=== PATIENT | male | born 1955 | race Caucasian/White ===

== ENCOUNTER 2025-04-06 11:47 | Emergency (ER) | payer OTHER, SELFPAY ==
--- NOTE | ~2025-04-06 | CT_ITS ---
EXAMINATION: CT CHEST WITHOUT CONTRAST CLINICAL INFORMATION: Chest pain, injury. COMPARISON: None available. TECHNIQUE: Multidetector volumetric CT imaging of the chest was done. Axial MIP volume rendering provided. Sagittal and coronal reformatted images were obtained. This CT examination was performed using dose optimization techniques as appropriate, variously including the following: *Automated exposure control *Adjustment of mA and/or kV according to patient size (this includes techniques or standardized protocols for targeted exams where dose is matched to indication/reason for exam; i.e. extremities or head) *Use of iterative reconstruction technique FINDINGS: LUNGS: Mild paraseptal emphysema is present. Mild subpleural scarring is present in the medial and posterior right lower lobe, and anterior right middle lobe. Minimal scarring is seen medially in the left lower lobe. Appearance has a suggestion of post therapy related changes. Lungs otherwise grossly clear. No consolidations or abnormal groundglass opacities. Small airways appear normal. No interstitial disease is evident. No pleural effusion or pneumothorax. 3 mm nodule in the right middle lobe (series 15, image 75). 4 mm nodule in the left lower lobe (series 15, image 96). 3 mm nodule in the lingula (series 15, image 64). MEDIASTINUM: There appears to have been distal esophagectomy with gastric pull-through procedure. The superior esophagus is mildly patulous. Normal thyroid. There are scattered small lymph nodes in the mediastinum, presumably reactive. Largest is right paratracheal measuring 9 mm. There is no mediastinal mass. Central airways are patent. Aorta is mildly calcified but nonaneurysmal. Main pulmonary artery is mildly prominent but not pathologically dilated. There is mild cardiac enlargement. There are heavy coronary calcifications. There is no pericardial effusion. CORONARY ARTERY CALCIFICATION: Heavy. AXILLA/CHEST WALL: No mass or lymphadenopathy present. UPPER ABDOMEN: Imaged upper abdominal contents demonstrate postoperative changes of the stomach with the gastric pull-through. There is mild to moderate fatty atrophy of the pancreas. Remainder of the upper abdominal contents appear normal. OSSEOUS STRUCTURES: There is no acute fracture identified. There are healed left rib fractures. There are mild to moderate degenerative changes of the spine. There are mild to moderate degenerative changes of the right greater than left shoulder joints. CT/CT chest wo IV con IMPRESSION: 1. There are no acute findings in the thorax. There are no bony fractures identified. 2. Mild paraseptal emphysema, with bibasilar scarring present. There is no active lung disease. 3. There is been a distal esophagectomy with gastric pull-through procedure. Expected postoperative and posttherapeutic changes are present. 4. Mild cardiac enlargement with heavy coronary calcifications. 5. There are a few tiny nonspecific pulmonary nodules. 1-year follow-up recommended as per Fleischner criteria. Electronically signed by: Kory Campoverde MD 04/06/2025 02:28 PM EDT
--- NOTE | ~2025-04-06 | XR_ITS ---
EXAMINATION: XR HAND 3 OR MORE VIEWS LEFT, XR WRIST 3 OR MORE VIEWS LEFT HISTORY: pain, injury COMPARISON: There are no prior studies available for comparison. FINDINGS: Six views of the left hand and wrist are submitted. The bones are osteopenic. There is no fracture or dislocation. There is evidence of an inflammatory arthritis involving the radial aspect of the carpus with large erosions seen involving the distal radius and the scaphoid. There is also erosion of the hamate. There is diffuse soft tissue swelling. 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 No fracture is seen. Electronically signed by: Hardik Patricia MD 04/06/2025 01:35 PM EDT
--- NOTE | ~2025-04-06 | CT_ITS ---
EXAMINATION: CT HEAD WITHOUT IV CONTRAST HISTORY: fall, head strike. TECHNIQUE: Unenhanced helical CT of the head was performed per standard departmental protocol. Coronal and sagittal reformats of the head were also evaluated. One or more of the following techniques was used for dose reduction: Automated exposure control, adjustment of the mA and/or kV according to patient size, use of iterative reconstruction technique. DLP: 633 mGy-cm COMPARISON: There are no prior studies available for comparison. FINDINGS: BRAIN: There is diffuse prominence of the ventricular system and cortical sulci, consistent with atrophy. Periventricular and subcortical white matter hypodensities are noted which are nonspecific, but often seen in the setting of small vessel ischemic disease. There is a sellar/suprasellar mass measuring 2.8 x 1.7 x 1.8 cm. There is no midline shift. No intra- or extra-axial fluid collections are identified. SINUSES: There is mucosal thickening in the ethmoid sinuses. The mastoid air cells and middle ear cavities are well pneumatized. ORBITS: The visualized orbits are unremarkable. BONES/SOFT TISSUES: The extracranial soft tissues are unremarkable. The calvarium is intact. No suspicious lytic or sclerotic lesions. CT/CT head/brain wo IV con IMPRESSION: 1. No evidence of intracranial hemorrhage. 2. 2.8 x 1.7 x 1.8 cm sellar/suprasellar mass. Unless this is a known finding, MRI of the brain without and with contrast is recommended. Electronically signed by: Hardik Patricia MD 04/06/2025 02:14 PM EDT
--- NOTE | ~2025-04-06 | XR_ITS ---
EXAMINATION: XR HAND 3 OR MORE VIEWS LEFT, XR WRIST 3 OR MORE VIEWS LEFT HISTORY: pain, injury COMPARISON: There are no prior studies available for comparison. FINDINGS: Six views of the left hand and wrist are submitted. The bones are osteopenic. There is no fracture or dislocation. There is evidence of an inflammatory arthritis involving the radial aspect of the carpus with large erosions seen involving the distal radius and the scaphoid. There is also erosion of the hamate. There is diffuse soft tissue swelling. 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 No fracture is seen. Electronically signed by: Hardik Patricia MD 04/06/2025 01:35 PM EDT
[2025-04-06 11:52] VITALS: BP 190/84; PULSE 55; RESP 18; TEMP 36.3; O2SAT 99; BMI 27.1
--- NOTE | 2025-04-06 12:01 | ED_ITS ---
HPI - Extremity Problem General Chief complaint: Extremity Injury, Upper Stated complaint: Wrist injury @ work Time Seen by Provider: 04/06/25 12:01 Source: patient and family (patient's ) Mode of arrival: ambulatory Limitations: no limitations History of Present Illness ED Provider: Jolanta Sharpe PA-C HPI Narrative: Patient is a 69 year old assigned male at with a history of pituitary macroadenoma (with central AI, hypothyroidism, hypogonadism), FREEDOM, OA, hypertension, asthma/mild COPD?(chemical exposure 09/2020 with quaternary ammonium chloride),?Gastroesophageal adenocarcinoma s/p chemoradiotherapy with weekly carboplatin and paclitaxel starting on 07/08/2022 chemotherapy completed 08/12/2022 radiation completed 08/18/2022 s/p esophagogastrectomy?10/2022, anemia, adrenal insufficiency, and eczema, presenting to the emergency department today with left wrist and right rib pain after a fall. Patient states that yesterday (04/05/2025) he was at work and tripped, landing on his left wrist. Patient states that he was evaluated at a local urgent care and told his left wrist is broken. Patient states that his right ribs have been bothering him and he wanted those to be evaluated. Patient states that he has a brain mass that he follows up outpatient for. Patient states that he hit his head when he fell but did not lose consciousness. Patient denies any other complaints at this time. Related Data Allergies Allergy/AdvReac Type Severity Reaction Status Date / Time No Known Allergies Allergy Verified 04/06/25 11:55 Review of Systems 2 Constitutional: Constitutional: Reports as per HPI Eyes: Eyes: Reports as per HPI ENT: Reports as per HPI Cardiovascular: Cardiovascular: Reports as per HPI Respiratory: Respiratory: Reports as per HPI Gastrointestinal: Gastrointestinal: Reports as per HPI Genitourinary: Genitourinary: Reports as per HPI Musculoskeletal: Musculoskeletal: Reports as per HPI Integumentary/Breasts: Skin/Breast: Reports as per HPI Neurologic: Reports as per HPI Psychiatric: Psychiatric: Reports as per HPI Endocrine: Endocrine: Reports as per HPI Hematologic/Lymphatic: Hematologic/Lymphatic: Reports as per HPI Allergic/Immunologic: Allergic/Immunologic: Reports as per HPI PMF Past Medical History Attestation statement: The following information was validated with the patient. Source: old records reviewed and nursing notes reviewed Social History Social History Unable to assess alcohol history related to: Unknown Smoked in Last 30 Days: No Use of substances other than those prescribed or required for medical reasons: Unknown Advance Directives: No Advance Directives Information Provided: No Do you have a plan to hurt others: No Plan Physical Exam 2 Vital Signs: Vital Signs: Last Vital Signs Temp 98.2 F 04/06/25 15:30 Pulse 50 04/06/25 15:30 Resp 18 04/06/25 15:30 BP 146/83 H 04/06/25 15:30 Pulse Ox 97 04/06/25 15:30 O2 Del Method Room Air 04/06/25 15:30 BMI result Body Mass Index 27.1 Const: General: cooperative, no acute distress, alert and awake Nutritional Appearance: well nourished Orientation/consciousness: patient oriented x3 HEENT: Head: Yes normal to inspection and Yes atraumatic Ears: hearing grossly normal bilaterally and external ears normal General nose exam: Normal external nose present, no nasal discharge noted and no epistaxis Face and sinus: Yes normal facial exam, No abrasion and No laceration Mouth: Normal oral and palatal mucosa present, no drooling and no muffled voice Eyes: General: appearance normal, both eyes and all related structures P eriorbital: periorbital findings normal Eyelids: Yes eyelids normal C onjunctivae: conjunctivae normal Pupils: Equal, round and reactive pupils present EOM: EOMs intact bilaterally Neck: Neck: Yes normal visual inspection and Yes full ROM Resp: Effort & Inspection: normal respiratory effort and able to speak in complete sentences Neuro: General: patient oriented x3, moves all extremities and CN's II-XI intact bilaterally Cranial nerves: Yes Equal, round and reactive pupils present Cognition (Neuro): normal cognition Extrem: Other: very minimal swelling present to the left wrist General: Yes full ROM and Yes capillary refill normal Psych: Appearance: grossly normal Mental Status: mental status grossly normal Affect: normal affect Attitude: cooperative Thought process: N ormal thought process present Thought content: Normal thought content present Insight: Good insight present (Psych) Medications Administered Discontinued Medications Generic Name Dose Route Start Last Admin Trade Name Freq PRN Reason Stop Dose Admin Acetaminophen 650 mg 04/06/25 14:15 04/06/25 14:24 Acetaminophen 325 Mg Tablet PO 04/06/25 14:16 650 mg ONCE ONE Administration Medical Decision Making Medical Decision Making [facility] Narrative: Patient is a 69 year old assigned male at with a history of pituitary macroadenoma (with central AI, hypothyroidism, hypogonadism), FREEDOM, OA, hypertension, asthma/mild COPD?(chemical exposure 09/2020 with quaternary ammonium chloride),?Gastroesophageal adenocarcinoma s/p chemoradiotherapy with weekly carboplatin and paclitaxel starting on 07/08/2022 chemotherapy completed 08/12/2022 radiation completed 08/18/2022 s/p esophagogastrectomy?10/2022, anemia, adrenal insufficiency, and eczema, presenting to the emergency department today with left wrist and right rib pain after a fall. Patient's physical exam was as noted in the physical exam portion of this note. No left sided snuffbox tenderness. Patient's blood work was unremarkable. Patient's left hand/wrist x-ray showed no acute break / fracture. Patient's CT head showed his known brain mass but otherwise unremarkable. Patient's chest CT showed no acute process but did show incidental lung nodules for which the radiologist recommended follow up. Given the patient's pain with left wrist ROM and mechanism of injury - I consulted with the orthopedic team who recommended placing the patient in a left velcro thumb spica splint and having him follow up on an outpatient basis. I explained my physical exam findings as well as all test results to the patient and the patient's . I answered all questions asked by the patient and the patient's . Patient's left wrist was placed in a velcro splint, without incident. Patient's PMS was intact prior to and after splint placement. I stressed the importance of the patient taking his medication as directed (either prescribed or as the over the counter packaging recommends). I stressed the importance of the patient following up with his primary care provider and the orthopedic team. I stressed the importance of the patient returning to the emergency department immediately if his symptoms were to worsen or if he were to develop any dizziness, shortness of breath, difficulty breathing, chest pain, blurry vision, loss of vision, nausea, vomiting, abdominal pain, fever, chills, back pain, or any other complaints. Patient verbalized agreement and understanding with this treatment plan and discharge. Differential Diagnosis Differential Diagnoses: The differential diagnosis associated with the presentation includes Wrist sprain Wrist strain Wrist fracture Rib contusion Rib pain Rib fracture Fall Admission/Observation Consideration of admission/observation: Escalation of care including admission/observation considered Patient would have been admitted to the hospital had his work up had any findings where hospital admission was appropriate and his clinical presentation warranted hospital admission. Consult Healthcare Provider Management of the patient was discussed with: Buffer Inflated Pad (spoke with the orthopedic team as noted in the MDM Rationale portion of this note. ) Lab Data [facility] Lab Attestation statement: I reviewed the patient's lab results. My interpretation of these results are in the MDM Rationale portion of this note. 04/06/25 12:46 04/06/25 12:46 Labs: Lab Results 04/06/25 Range/Units 12:46 WBC 6.9 (4.8-10.8) X10*3/uL RBC 4.84 (4.60-5.80) X10*6/uL Hgb 11.9 L (14.0-18.0) g/dl Hct 37.6 L (42.0-52.0) % MCV 77.7 L (80.0-98.0) fL MCH 24.6 L (27.0-33.0) pg MCHC 31.6 (31.0-36.0) g/dl RDW 17.8 H (11.0-16.0) % Plt Count 172 (160-400) X10*3/uL MPV 10.0 (9.4-12.4) fL Immature Gran % (Auto) 0.3 (0.0-0.4) % Neut % (Auto) 75.9 H (45-73) % Lymph % (Auto) 5.5 L (20-40) % Angelina % (Auto) 10.9 (2-11) % Eos % (Auto) 6.7 H (0-4) % Baso % (Auto) 0.7 (0-2) % Lymph # (Auto) 0.4 L (1.2-4.9) X10*3/uL Angelina # (Auto) 0.8 (0.1-1.2) X10*3/uL Eos # (Auto) 0.5 H (0.0-0.4) X10*3/uL Baso # (Auto) 0.1 (0.0-0.2) X10*3/uL Abs Immat Gran (auto) 0.02 (0.00-0.03) X10*3/uL Absolute Neuts (auto) 5.2 (2.0-8.3) x10*3/uL Absolute Nucleated RBC 0.000 (0.0-0.012) X10*3/uL Nucleated RBC % (auto) 0.0 (0.0-0.2) /100WBC PT 11.3 (10.9-12.4) SEC INR 1.0 (0.9-1.1) Sodium 141 (135-145) mmol/L Potassium 4.2 (3.3-5.1) mmol/L Chloride 106 (96-108) mmol/L Carbon Dioxide 28 (22-29) mmol/L Anion Gap 11 L (12-20) BUN 16 (9-16) mg/dL Creatinine 0.83 (0.5-1.4) mg/dL Estim Creat Clear Calc 93.4 Estimated GFR > 60 Random Glucose 87 (60-115) mg/dL Calcium 8.8 (8.4-10.2) mg/dL Total Bilirubin 0.5 (0.0-1.0) mg/dL AST 30 (5-37) U/L ALT 25 (0-40) U/L Alkaline Phosphatase 102 (39-117) U/L Total Protein 6.7 (6.5-8.0) g/dL Albumin 4.2 (3.5-5.0) g/dL Independent Interpretation I performed an independent interpretation of an: Plain X-Ray and CT Scan Interpretation: My interpretation is in agreement with the radiologist's impression of these imaging studies. L Reason for Exam: pain, injury EXAMINATION: XR HAND 3 OR MORE VIEWS LEFT, XR WRIST 3 OR MORE VIEWS LEFT HISTORY: pain, injury COMPARISON: There are no prior studies available for comparison. FINDINGS: Six views of the left hand and wrist are submitted. The bones are osteopenic. There is no fracture or dislocation. There is evidence of an inflammatory arthritis involving the radial aspect of the carpus with large erosions seen involving the distal radius and the scaphoid. There is also erosion of the hamate. There is diffuse soft tissue swelling. 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 No fracture is seen. Electronically signed by: Hardik Patricia MD 04/06/2025 01:35 PM EDT RP Dictated By: Hardik Patricia MD Signed By: Electronically signed by Hardik Patricia MD 04/06/25 1335 Reason for Exam: fall, head strike EXAMINATION: CT HEAD WITHOUT IV CONTRAST HISTORY: fall, head strike. TECHNIQUE: Unenhanced helical CT of the head was performed per standard departmental protocol. Coronal and sagittal reformats of the head were also evaluated. One or more of the following techniques was used for dose reduction: Automated exposure control, adjustment of the mA and/or kV according to patient size, use of iterative reconstruction technique. DLP: 633 mGy-cm COMPARISON: There are no prior studies available for comparison. FINDINGS: BRAIN: There is diffuse prominence of the ventricular system and cortical sulci, consistent with atrophy. Periventricular and subcortical white matter hypodensities are noted which are nonspecific, but often seen in the setting of small vessel ischemic disease. There is a sellar/suprasellar mass measuring 2.8 x 1.7 x 1.8 cm. There is no midline shift. No intra- or extra-axial fluid collections are identified. SINUSES: There is mucosal thickening in the ethmoid sinuses. The mastoid air cells and middle ear cavities are well pneumatized. ORBITS: The visualized orbits are unremarkable. BONES/SOFT TISSUES: The extracranial soft tissues are unremarkable. The calvarium is intact. No suspicious lytic or sclerotic lesions. CT/CT head/brain wo IV con IMPRESSION: 1. No evidence of intracranial hemorrhage. 2. 2.8 x 1.7 x 1.8 cm sellar/suprasellar mass. Unless this is a known finding, MRI of the brain without and with contrast is recommended. Electronically signed by: Hardik Patricia MD 04/06/2025 02:14 PM EDT Dictated By: Hardik Patricia MD Signed By: Electronically signed by Hardik Patricia MD 04/06/25 1414 Reason for Exam: pain, injury EXAMINATION: XR HAND 3 OR MORE VIEWS LEFT, XR WRIST 3 OR MORE VIEWS LEFT HISTORY: pain, injury COMPARISON: There are no prior studies available for comparison. FINDINGS: Six views of the left hand and wrist are submitted. The bones are osteopenic. There is no fracture or dislocation. There is evidence of an inflammatory arthritis involving the radial aspect of the carpus with large erosions seen involving the distal radius and the scaphoid. There is also erosion of the hamate. There is diffuse soft tissue swelling. 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 No fracture is seen. Electronically signed by: Hardik Patricia MD 04/06/2025 01:35 PM EDT Dictated By: Hardik Patricia MD Signed By: Electronically signed by Hardik Patricia MD 04/06/25 1335 Reason for Exam: pain, injury EXAMINATION: CT CHEST WITHOUT CONTRAST CLINICAL INFORMATION: Chest pain, injury. COMPARISON: None available. TECHNIQUE: Multidetector volumetric CT imaging of the chest was done. Axial MIP volume rendering provided. Sagittal and coronal reformatted images were obtained. This CT examination was performed using dose optimization techniques as appropriate, variously including the following: *Automated exposure control *Adjustment of mA and/or kV according to patient size (this includes techniques or standardized protocols for targeted exams where dose is matched to indication/reason for exam; i.e. extremities or head) *Use of iterative reconstruction technique FINDINGS: LUNGS: Mild paraseptal emphysema is present. Mild subpleural scarring is present in the medial and posterior right lower lobe, and anterior right middle lobe. Minimal scarring is seen medially in the left lower lobe. Appearance has a suggestion of post therapy related changes. Lungs otherwise grossly clear. No consolidations or abnormal groundglass opacities. Small airways appear normal. No interstitial disease is evident. No pleural effusion or pneumothorax. 3 mm nodule in the right middle lobe (series 15, image 75). 4 mm nodule in the left lower lobe (series 15, image 96). 3 mm nodule in the lingula (series 15, image 64). MEDIASTINUM: There appears to have been distal esophagectomy with gastric pull-through procedure. The superior esophagus is mildly patulous. Normal thyroid. There are scattered small lymph nodes in the mediastinum, presumably reactive. Largest is right paratracheal measuring 9 mm. There is no mediastinal mass. Central airways are patent. Aorta is mildly calcified but nonaneurysmal. Main pulmonary artery is mildly prominent but not pathologically dilated. There is mild cardiac enlargement. There are heavy coronary calcifications. There is no pericardial effusion. CORONARY ARTERY CALCIFICATION: Heavy. AXILLA/CHEST WALL: No mass or lymphadenopathy present. UPPER ABDOMEN: Imaged upper abdominal contents demonstrate postoperative changes of the stomach with the gastric pull-through. There is mild to moderate fatty atrophy of the pancreas. Remainder of the upper abdominal contents appear normal. OSSEOUS STRUCTURES: There is no acute fracture identified. There are healed left rib fractures. There are mild to moderate degenerative changes of the spine. There are mild to moderate degenerative changes of the right greater than left shoulder joints. CT/CT chest wo IV con IMPRESSION: 1. There are no acute findings in the thorax. There are no bony fractures identified. 2. Mild paraseptal emphysema, with bibasilar scarring present. There is no active lung disease. 3. There is been a distal esophagectomy with gastric pull-through procedure. Expected postoperative and posttherapeutic changes are present. 4. Mild cardiac enlargement with heavy coronary calcifications. 5. There are a few tiny nonspecific pulmonary nodules. 1-year follow-up recommended as per Fleischner criteria. Electronically signed by: Kory Campoverde MD 04/06/2025 02:28 PM EDT Dictated By: Kory Campoverde MD Signed By: Electronically signed by Kory Campoverde MD 04/06/25 1428 Radiology Impression Discussion of test interpretation with radiology: I have reviewed the radiologist's reading. Independent Historian Clinical information obtained from an independent historian. History obtained from or confirmed by: Spouse (patient's provided additional history and confirmed the history provided by the patient. ) External Record Review External record reviewed: Office record (Reviewed note from [facility] visit on 03/23/2025.) Procedures Orthopedic Splinting/Casting Left wrist: Side: left Upper Extremity Injury Location: wrist Upper Extremity Immobilizer: thumb spica Critical Care Time Critical Care Time Critical Care Time: Yes Total Critical Care Time: 33 Attestation: I spent 33 minutes of Critical Care Time with this patient. This does not include time spent on separately reported billable procedures. Discharge Plan Discharge Clinical Impression: Fall, Left wrist sprain, Incidental pulmonary nodule, Brain mass Patient Disposition: Home, Self-Care Instructions: Wrist Injury (ED), Fall Prevention for Older Adults (ED), Pulmonary Nodules (ED) Additional Instructions: Your left wrist and hand x-ray wasn't convincing for a fracture / break however, there is concern based on your examination that there is a scaphoid injury. The orthopedic team has requested I place you in a velcro wrist splint and having you follow up with them in their office. Your head CT showed the known brain mass (2.8 x 1.7 x 1.8cm sellar/suprasellar mass) - please continue to follow up with your specialists about this. Your chest CT showed a few tiny nonspecific pulmonary nodules for which the radiologist recommends follow up on in 1 year. IF you are prescribed home medications and/or you are taking over the counter medications at home - it is very important you continue to do so as prescribed / directed unless told otherwise. Follow up with your primary care provider. Return to the emergency department immediately if your symptoms worsen or if you develop any numbness, tingling, dizziness, shortness of breath, difficulty breathing, chest pain, blurry vision, loss of vision, nausea, vomiting, abdominal pain, fever, chills, back pain, or any other complaints. Please see the information below about our Patient Portal. If you are not yet enrolled in the [facility] Patient Portal, you will receive an enrollment email invitation following your visit to any [facility] setting. You may also self-enroll in the Patient Portal by visiting our website: [email or web address] The following information is required to access the Patient Portal: - Your [facility] Medical Record Number - Your personal home email address (must match what is in your electronic medical record, Registration staff can assist with this) - Name - Date of Capabilities of the Patient Portal: - Message some providers - View upcoming appointments - Access your health summary, medical history, and visit history - View current conditions and allergies - View procedure and lab results - View your medications, including guidelines, side effects, and precautions - Complete pre-appointment questionnaires requested by your provider - Ready summary reports of your office visits and procedures To access the Patient Portal Mobile Aidan, follow these directions: - Search [employer] in the Aidan Store or [employer] Store - Download the Aidan - Search for [facility] - Enter your login/password Referrals: [facility] [Provider Group] Referral Note: Call to establish and follow up with the orthopedic team for your left wrist sprain / possible left scaphoid injury. Ray Bedolla MD [Primary Care Provider, Internal Medicine] Stand Alone Forms: Work/School Release Interventions: ED Discharge Assessment Last Done: 04/06/25 15:30 Discharge Date/Time: 04/06/25 15:31 Print Language: Nepali
[2025-04-06 12:50] LABS: MANUAL DIFF FLAG NO
[2025-04-06 12:52] LABS: Hematocrit 37.6 % (42.0-52.0); Hemoglobin 11.9 g/dl (14.0-18.0); Imm Gran Abs Auto 0.02 X10*3/uL (0.00-0.03); Imm Gran Pct Auto 0.3 % (0.0-0.4); Lymphocytes Absolute Auto 0.4 X10*3/uL (1.2-4.9); Mean Corpuscular HGB Conc 31.6 g/dl (31.0-36.0); Mean Corpuscular Hemoglobin 24.6 pg (27.0-33.0); Mean Corpuscular Volume 77.7 fL (80.0-98.0); NRBC Abs Auto 0.000 X10*3/uL (0.0-0.012); NRBC Pct Auto 0.0 /100WBC (0.0-0.2); Platelet Count 172 X10*3/uL (160-400); Red Blood Count 4.84 X10*6/uL (4.60-5.80); White Blood Count 6.9 X10*3/uL (4.8-10.8)
[2025-04-06 13:00] LABS: INTERNATIONAL NORM RATIO 1.0 (0.9-1.1); Prothrombin Time 11.3 SEC (10.9-12.4)
[2025-04-06 13:07] LABS: Alanine Aminotransferase 25 U/L (0-40); Albumin Level 4.2 g/dL (3.5-5.0); Alkaline Phosphatase 102 U/L (39-117); Anion Gap 11 (12-20); Aspartate Amino Transferase 30 U/L (5-37); Blood Urea Nitrogen 16 mg/dL (9-16); Calcium 8.8 mg/dL (8.4-10.2); Carbon Dioxide 28 mmol/L (22-29); Chloride 106 mmol/L (96-108); Creatinine Clr Calc Pharmacy 93.4; Estimated Glomerular Filt Rate > 60; Potassium 4.2 mmol/L (3.3-5.1); Sodium 141 mmol/L (135-145); Total Protein 6.7 g/dL (6.5-8.0)
[2025-04-06 14:11] VITALS: BP 146/83; PULSE 50; RESP 18; TEMP 36.8; O2SAT 97
[2025-04-06 15:30] VITALS: BP 146/83; PULSE 50; RESP 18; TEMP 36.8; O2SAT 97
--- OUTSIDE RECORDS SUMMARY | 2025-04-06 17:17 | XMS_ITS | Patient Health Record ---
Author Organization [facility] Address [address] [place] [address] Care Team Providers Care Title I Director Name Role Phone David REYES Ting Primary Care Provider Julio Barrera Unavailable [phone] Reason For Referral No Information Medications Medication SIG (Take, Route, Frequency, Duration) Notes Start Date End Date Status Triamterene-HCTZ 37.5-25 MG Oral; Duration: 90 Active Metoprolol Succinate ER 100 MG Oral; Duration: 90 Active Night Splint AFO - L1930 as directed 05/16/2016 Active Fluarix Quadrivalent 0.5 ML Intramuscular Not-Taking Zostavax 91620 UNT/0.65ML Subcutaneous; Duration: 1 Not-Taking Social History Tobacco use other than smoking: Question Answer Notes Are you an other tobacco user? No Problems Problem Type SNOMED Code ICD Code Onset Dates Problem Status W/U Status Risk Notes Problem Plantar fascial fibromatosis (22558839) Plantar fascial fibromatosis (M72.2) Active confirmed Encounters Encounter Location Date Provider Diagnosis [facility] [address] [place] [address] 05/02/2024 Julio Blandon [facility] [address] [place] [address] 10/27/2024 Julio Blandon Plan Of Treatment Pending Test Test Name Order Date X ray : Foot, left 3V 06/09/2017 [id number] TENDON SHEATH/LIGAMENT 1 07/23/2015 [id number] TENDON SHEATH/LIGAMENT 1 07/27/2015 Insurance Providers Payer Name Payer Address Payer Phone Subscriber Number Group Number Insured Name Patient Relationship to Insured Coverage Start Date Coverage End Date [facility] [address] [facility] [place], [place] [id number] Mustapha Segura Self - patient is the insured Medical (General) History Medical History History ICD Code Arthritis High blood pressure Chicken pox Surgical History Surgery Date(Month/Year) total left knee replacement 2009 total right knee replacement 2014
--- OUTSIDE RECORDS SUMMARY | 2025-04-06 17:17 | XMS_ITS | Clinical Summary ---
Author Organization [facility], Address [address] [place] [address] Phone Care Team Providers Care Truck Technician Name Role Phone Ray Bedolla MD Primary Care Provider [phone]- [phone] Allergies No known active allergies Medications zolpidem (AMBIEN) 5 MG tablet Take 5 mg by mouth at night if needed for sleep Active zafirlukast (ACCOLATE) 10 MG tablet Take 10 mg by mouth in the morning and 10 mg in the evening. Active pramipexole (MIRAPEX) 0.5 MG tablet Take 0.5 mg by mouth at bed time Active omeprazole (PriLOSEC) [address] capsule Take 40 mg by mouth in the morning and 40 mg in the evening. Do not crush or chew. . Active omega-3 (FISH OIL) 1000 MG capsule Take by mouth 1 (one) time each day Active Multiple Vitamin (multivitamin) capsule Take 1 capsule by mouth 1 (one) time each day Active hydroCHLOROthia zide 25 MG tablet Take 25 mg by mouth 1 (one) time each day Active fluticasone (FLONASE) 50 MCG/ACT nasal spray Administer 1 spray into each nostril 1 (one) time each day Active ferrous sulfate 325 (65 Fe) MG tablet Take 325 mg by mouth 1 (one) time each day with breakfast Active aspirin 325 MG tablet Take 325 mg by mouth 1 (one) time each day Active albuterol HFA (PROVENTIL HFA;VENTOLIN HFA) 108 (90 Base) MCG/ACT inhaler Inhale 2 puffs every 6 (six) hours if needed for wheezing Active Active Problems Problem Noted Date Diagnosed Date Arthralgia of the lower leg 06/23/2022 Eczema 06/23/2022 Anemia 06/23/2022 Benign neoplasm of colon 06/19/2022 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/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 Eustachian tube disorder 06/19/2022 Gastroesophageal reflux disease 06/19/2022 Hypertension 06/19/2022 Hypertriglyceridemia 06/19/2022 Obese class II 06/19/2022 Obstructive sleep apnea syndrome 06/19/2022 Osteoarthritis 06/19/2022 Social History Tobacco Use Types Packs/Day Years Used Date Smoking Tobacco: Former Cigarettes Smokeless Tobacco: Never Tobacco Cessation:Counseling Given: Not Answered Alcohol Use Standard Drinks/Week Comments Not Currently 0 (1 standard drink = 0.6 oz pur e alcohol) Sex and Gender Information Value Date Recorded Sex Assigned at Not on file Legal Sex Male 11:20 AM EST Gender Identity Not on file Sexual Orientation Not on file Last Filed Vital Signs Vital Sign Reading Time Taken Comments Blood Pressure 163/77 06/23/2022 12:57 PM EST Pulse 63 06/23/2022 12:57 PM EST Temperature 36.2 C (97.2 F) 06/23/2022 12:57 PM EST Respiratory Rate 16 06/23/2022 12:57 PM EST Oxygen Saturation 100% 06/23/2022 12:57 PM EST Inhaled Oxygen Concentration - - Weight 113 kg (250 lb) 06/23/2022 12:57 PM EST Height 182.9 cm (6') 06/23/2022 12:57 PM EST Body Mass Index 33.91 06/23/2022 12:57 PM EST Plan of Treatment Health Maintenance Due Date Last Done Comments Colorectal Cancer Screening: Annual FOBT 2005 Colorectal Cancer Screening: Colonoscopy 2005 Colorectal Cancer Screening: Sigmoidoscopy 2005 Pneumococcal Vaccine: 50+ Years (2 of 2 - PCV) 03/14/2022 03/14/2021, 03/10/2011 Influenza Vaccine (#1) 2025 8, 04/20/2017, 2016, Additional history exists Hepatitis B Vaccine Aged Out 10/12/2013, 3 No longer eligible based on patient's age to complete this topic Insurance [facility] Care Teams Truck Technician Relationship Specialty Start Date End Date Ray Bedolla MD [address] [place] [phone] PCP - General Family Medicine 06/10/22
--- OUTSIDE RECORDS SUMMARY | 2025-04-06 17:17 | XMS_ITS | Clinical Summary ---
Author Organization [facility] Address [address] [place] [phone] Phone Care Team Providers Care Transport Aircrewman Name Role Phone Ray Bedolla MD Primary Care Provider + Allergies No known active allergies Medications Medication-Free Text CPAP machine Active omega-3 fatty acids-fish oil 340-1,000 mg Cap Take by mouth daily. Active aspirin 325 MG tablet Take 325 mg by mouth daily. Active inhaler spacing device (AEROCHAMBER MV) Spcr Inhale 2 each into the lungs 2 (two) times a day. 1 each 10/30/19 21 Active albuterol 90 mcg/actuation inhaler Inhale 2 puffs into the lungs every 4 (four) hours as needed for wheezing or shortness of breath/dyspnea. 1 Inhaler 11 12/25/19 21 Active fluticasone propionate (FLONASE) 50 mcg/actuation nasal spray 1 spray by Nasal route 2 (two) times a day. 16 g 11 08/27/19 22 Active senna-docusate (PERICOLACE) 8.6-50 mg Take 1 tablet by mouth nightly at bedtime. 7 tablet 11/28/19 22 Active Additional Information Patient taking differently:1 tablet Oral2 times daily PRN, Reported on 10/10/2022 polyethylene glycol (MIRALAX) 17 gram packet Take 17 g by mouth daily. It is safe to increase this med from once to 4 times daily to assure that you have one soft bowel movement daily. 100 packet 11/28/19 22 Active bisacodyl (DULCOLAX) [address] 1 suppository (10 mg total) rectally every other day as needed. 10 suppository 11/28/19 Active zafirlukast (ACCOLATE) 20 MG tabletIndicatio ns:Medication refill TAKE 1 TABLET BY MOUTH TWICE DAILY 180 tablet 3 12/25/19 22 Active omeprazole (PRILOSEC) 40 MG capsuleIndicati ons:Medication refill TAKE 1 CAPSULE BY MOUTH TWICE DAILY 60 capsule 11 01/02/20 22 Active hydroCHLOROthia zide (HYDRODIURIL) 25 MG tablet Take 25 mg by mouth daily. Active levothyroxine (SYNTHROID, LEVOTHROID) 112 MCG tablet Take 112 mcg by mouth every morning. Unsure of dosage Active predniSONE (DELTASONE) 1 MG tablet Take 1 mg by mouth daily with breakfast. Unsure of dosage Active zolpidem (AMBIEN) 5 MG tablet Take 5 mg by mouth nightly at bedtime as needed for sleep. Active Active Problems Problem Noted Date Diagnosed Date Abnormal stress ECG with treadmill 10/10/2022 Immunizations Immunization Administration Dates Next Due COVID-19 (Pre-05/04) Pfizer Vaccine, mRNA, PF 10/08/2020 Hepatitis B, unspecified formulation 10/04/2002 INFLUENZA, SPLIT VIRUS, TRIV ALENT W/ PRESERVATIVE IM 04/22/2012,03/10/2011,04/23/2010 Influenza Quadrivalent MDCK Preservative Free IM 04/20/2017 Influenza Quadrivalent Preservative Free IM 03/13,2016 Influenza, Unspecified Formulation 04/19/2009, Pneumococcal polysaccharide PPSV23 03/10/2011 Td, unspecified formulation 10/04/2002 Tdap 03/10/2011 Zoster live 2016 Family History Medical History Relation Comments Stroke Father Relation Status Comments Father Other 89 Social History Tobacco Use Types Packs/Day Years Used Date Smoking Tobacco: Former Cigarettes Q uit: 2006 Smokeless Tobacco: Never Tobacco Cessation:Counseling Given: Not Answered Alcohol Use Standard Drinks/Week Comments Yes 0 (1 standard drink = 0.6 oz pur e alcohol) 2 times a year Education Answer Date Recorded Are you interested in more education? Not on nya e 11/07/2022 Are you concerned about learning? Not on file 11/07/2022 No 11/07/2022 No 11/07/2022 Digital Access Answer Date Recorded No 12/08/2022 No 12/08/2022 Reliable internet access at home? Not on file 12/08/2022 Device with a working camera? Not on file Sex and Gender Information Value Date Recorded Sex Assigned at Male 11/27/2021 7:50 AM EDT Legal Sex Male 9:54 PM EDT Gender Identity Male 11/27/2021 7:50 AM EDT Sexual Orientation Not on file Last Filed Vital Signs Vital Sign Reading Time Taken Comments Blood Pressure 126/72 10/10/2022 10:46 AM EDT Pulse 72 10/10/2022 10:46 AM EDT Temperature 36 C (96.8 F) 05/19/2022 11:40 AM EST Respiratory Rate 18 05/19/2022 1:17 PM EST Oxygen Saturation 97% 10/10/2022 10:46 AM EDT Inhaled Oxygen Concentration - - Weight 119.3 kg (263 lb) 10/10/2022 10:46 AM EDT Height 176.5 cm (5' 9.49 ) 05/19/2022 11:[address] Body Mass Index 38.29 05/19/2022 11:40 AM EST Plan of Treatment Health Maintenance Due Date Last Done Comments LIPID PANEL 1956 DEPRESSION SCREENING 1968 SMOKING Hx and SMOKELESS TOBACCO SCREENING 1969 HEPATITIS C SCREENING 1974 COLOGUARD 2001 FIT TEST 2001 FOBT 2001 SIGMOIDOSCOPY 2001 VIRTUAL COLONOSCOPY 2001 POTASSIUM LEVEL 05/09/2023 05/09/2022, 10/15/2020 TSH LEVEL 05/09/2023 05/09/2022 SCREENING FOR DIABETES 10/16/2023 10/15/2020 INFLUENZA VACCINE (#1) 2025 , 05/12/2021, 04/16/2020, Additional history exists COVID-19 VACCINE ( season) 2025 04/05/2022, 01/03/2022, 10/08/2020, Additional history exists Adult Td,Tdap Booster 03/02/2028 03/02/2018 , 03/10/2011, 08/13/2010, Additional history exists RSV VACCINE (1 - 1-dose 75+ series) 2031 COLONOSCOPY 05/19/2032 05/19/2022 COLORECTAL CANCER SCREENING 05/19/2032 ZOSTER VACCINES Completed 07/27/2021, 01/2021, 01/16/2021, Additional history exists PNEUMOCOCCAL VACCINES (50+ years) Completed 03/28/2022, 03/14/2021, 03/10/2011 ABDOMINAL AORTIC ANEURYSM (AAA) SCREENING Completed 05/26/2022 HEPATITIS A VACCINES Aged Out No long er eligible based on patient's age to complete this topic HIB VACCINES Aged Out No longer eligi ble based on patient's age to complete this topic MENINGOCOCCAL VACCINES (ACWY) Aged Out No longer eligible based on patient's age to complete this topic MENINGOCOCCAL VACCINES (B) Aged Out N o longer eligible based on patient's age to complete this topic Medical Devices Not on file Procedures Procedure Name Priority Date/Time Associated Diagnosis Comments CT ABDOMEN WITH CONTRAST Routine 05/26/2022 1:00 PM EST Adenocarcinoma, gastric cardia ENDOSCOPY, COLON 05/19/2022 12:2 4 PM EST TSH Routine 05/09/2022 3:02 PM EDT Anemia, unspecified type Change in bowel habits Gastroesophageal reflux disease, unspecified whether esophagitis present COMPREHENSIVE METABOLIC PANEL Routine 05/09/2022 3:02 PM EDT Anemia, unspecified type Change in bowel habits Gastroesophageal reflux disease, unspecified whether esophagitis present from Last 3 Months or Most Recently Relevant to Health Maintenance Results * CT ABDOMEN WITH CONTRAST (05/26/2022 1:00 PM EST) Anatomical Region Laterality Modality Abdomen, Abdominal Vasculature C omputed Tomography 05/26/2022 4:33 PM EST Impressions 05/26/2022 6:07 PM EST 1. Irregular wall thickening of the GE junction and gastric cardia, extending along the less curvature, in keeping with primary site of disease. 2. Enlarged lower paraesophageal node, most likely metastasis. 3. Borderline enlarged mediastinal, hilar nodes as well as a periportal lymph node may be reactive/inflammatory or additional metastases. 4. Scattered sub-5 mm lung nodules are too small to characterize. Narrative 05/26/2022 6:07 PM EST TECHNIQUE: Multidetector-row CT of the chest, and abdomen was performed after administration of intravenous contrast using tailored dose modulation techniques. Images were reconstructed in the axial, coronal, and sagittal planes. COMPARISON: CT ABDOM & PELVIS C+ 2010- FINDINGS: Chest: Devices/Tubes/Lines: None. Lungs: Mild paraseptal emphysema in both upper lobes. Scattered sub-5 mm nodules including a 3 mm left lower lobe nodule (4:220), and a 2 mm left lower lobe nodule (4:239). The airways are clear. Pleura: Normal. No pleural effusion or pneumothorax. Mediastinum: No pericardial effusion. Severe amount of coronary calcifications. Lymph Nodes: Enlarged right lower paraesophageal node measuring 2.4 x 2.2 cm (3:119). Borderline enlarged mediastinal and hilar nodes, including a 1.5 x 1.1 cm right lower paratracheal node (3:55), a 1.5 x 1.1 cm prevascular node (3:60), and a 1.4 x 0.9 cm left hilar node (3:83). No enlarged supraclavicular or axillary nodes. Chest Wall: Normal. No chest wall mass. Abdomen: Liver: No focal lesions. Biliary: No biliary ductal dilatation. Spleen: No splenomegaly or focal lesions. Pancreas: No masses or ductal dilatation. Adrenal Glands: No nodules. Kidneys/Ureters: Multiple bilateral simple cysts. Nonobstructive bilateral calyceal stones, measuring up to 9 mm. No mass or hydronephrosis. Bowel: Irregular wall thickening of the GE junction and gastric cardia extending along the lesser curvature, measuring up to 1.7 cm in thickness. No definite extraluminal extension. No evidence of obstruction. Peritoneum/Retroperitoneum: No masses, pneumoperitoneum, or fluid. Lymph Nodes: Mildly enlarged periportal node measuring 1.3 x 1.1 cm (4:60). Vessels: Moderate atherosclerotic calcifications of the aorta and branching vessels. No aneurysm. Bones/Soft Tissues: No destructive osseous lesions. There are degenerative changes of the visualized spine. Procedure Note Liliane Conway MD - 05/26/2022 TECHNIQUE: Multidetector-row CT of the chest, and abdomen was performedafter administration of intravenous contrast using tailored dosemodulation techniques. Images were reconstructed in the axial, coronal,and sagittal planes. COMPARISON: CT ABDOM & PELVIS C+ 2010- FINDINGS: Chest: Devices/Tubes/Lines: None. Lungs: Mild paraseptal emphysema in both upper lobes. Scattered sub-5 mmnodules including a 3 mm left lower lobe nodule (4:220), and a 2 mm leftlower lobe nodule (4:239). The airways are clear. Pleura: Normal. No pleural effusion or pneumothorax. Mediastinum: No pericardial effusion. Severe amount of coronarycalcifications. Lymph Nodes: Enlarged right lower paraesophageal node measuring 2.4 x 2.2cm (3:119). Borderline enlarged mediastinal and hilar nodes, including a1.5 x 1.1 cm right lower paratracheal node (3:55), a 1.5 x 1.1 cmprevascular node (3:60), and a 1.4 x 0.9 cm left hilar node (3:83). Noenlarged supraclavicular or axillary nodes. Chest Wall: Normal. No chest wall mass. Abdomen: Liver: No focal lesions. Biliary: No biliary ductal dilatation. Spleen: No splenomegaly or focal lesions. Pancreas: No masses or ductal dilatation. Adrenal Glands: No nodules. Kidneys/Ureters: Multiple bilateral simple cysts. Nonobstructive bilateralcalyceal stones, measuring up to 9 mm. No mass or hydronephrosis. Bowel: Irregular wall thickening of the GE junction and gastric cardiaextending along the lesser curvature, measuring up to 1.7 cm in thickness.No definite extraluminal extension. No evidence of obstruction. Peritoneum/Retroperitoneum: No masses, pneumoperitoneum, or fluid. Lymph Nodes: Mildly enlarged periportal node measuring 1.3 x 1.1 cm(4:60). Vessels: Moderate atherosclerotic calcifications of the aorta andbranching vessels. No aneurysm. Bones/Soft Tissues: No destructive osseous lesions. There are degenerativechanges of the visualized spine. IMPRESSION: 1. Irregular wall thickening of the GE junction and gastric cardia,extending along the less curvature, in keeping with primary site ofdisease. 2. Enlarged lower paraesophageal node, most likely metastasis. 3. Borderline enlarged mediastinal, hilar nodes as well as a periportallymph node may be reactive/inflammatory or additional metastases. 4. Scattered sub-5 mm lung nodules are too small to characterize. us Glenn Wheeler MD IMG CT XSPECIALTY ORDERABLES F inal Result * ENDOSCOPY, COLON (05/19/2022 12:24 PM EST) Narrative Transcriptions Glenn Wheeler MD - 05/19/2022 12:24 PM EST Patient Name: Vance Segura Attending MD:: GLENN WHEELER MD Procedure Date: 05/19/2022 12:24 PM Date of : 1955 Age: 67 Admit Type: Outpatient Gender: Male Room: [place] [address] Referring MD: Ray Bedolla Exam Type: Colonoscopy Indications: Screening in patient at increased risk: Colorectal cancer in mother 60 or older, High risk coloncancer surveillance: Personal history of adenoma (10 mm or greater in size) seen by Dr. Altamirano, Unexplainediron deficiency anemia Medications: Monitored Anesthesia Care Procedure: Informed consent was obtained from the patientafter discussion of the indications, limitations, alternatives, benefits, and risks of the procedure. Risks specifically discussed include but are not limited to medication reactions, missed lesions, bleeding, perforation, or the need for emergent surgery. Throughout the procedure, the patient's blood pressure, pulse, end-tidal CO2, and oxygensaturations were monitored continuously. The Olympus adult variable colonoscope [id number] #2 was introduced through the anus and advanced to the cecum, identified by the appendiceal orifice, ileocecal valve and palpation. The colonoscopy was performed without difficulty. The patient tolerated the procedure fairly well. The quality of the bowel preparation was good. The ileocecal valve,appendiceal orifice, and rectum were photographed. Complications: No immediate complications. Estimated blood loss: Minimal. Findings: The perianal and digital rectal examinations were normal. Pertinent negatives include normalsphincter tone. A tattoo was seen in the sigmoid colon at 30cm. A post-polypectomy scar was found at the tattoo site. There was no evidence of residual polyp tissue. Retroflexion in the right colon was performed. The exam was otherwise without abnormality ondirect and retroflexion views. Impression: - A tattoo was seen in the sigmoid colon. A post-polypectomy scar was found at the tattoo site. There was no evidence of residual polyp tissue. - The examination was otherwise normal on directand retroflexion views. - No specimens collected. Recommendation: - Repeat colonoscopy in 5 years for surveillance. GLENN WHEELER MD 05/19/2022 1:03:42 PM This report has been signed electronically. Number of Addenda: 0 Note Initiated On: 05/19/2022 12:24 PM Procedure Code(s): --- Professional --- 83335, Colonoscopy, flexible; diagnostic, including collection of specimen(s) by brushing or washing, when performed (separateprocedure) --- Technical --- 35619, Colonoscopy, flexible; diagnostic, including collection of specimen(s) by brushing or washing, when performed (separateprocedure) Diagnosis Code(s): --- Professional --- Z80.0, Family history of malignant neoplasm of digestive organs Z86.010, Personal history of colonic polyps D50.9, Iron deficiency anemia, unspecified --- Technical --- Z80.0, Family history of malignant neoplasm of digestive organs Z86.010, Personal history of colonic polyps D50.9, Iron deficiency anemia, unspecified CPT copyright 2020 [employer]. All rights reserved. The codes documented in this report are preliminary and upon traffic lieutenant reviewmay be revised to meet current compliance requirements. Procedure Date: 05/19/2022 12:24:[address] [place] [id number] us Ray Bedolla MD GI PROCEDURE ORDERABLES Final Result * (ABNORMAL) Comprehensive metabolic panel (05/09/2022 3:02 PM EDT) SODIUM 138 133 - 146 mmol/L [facility] POTASSIUM 3.9 3.3 - 5.1 mmol/L [facility] CHLORIDE 99 96 - 108 mmol/L [facility] CO2 24 21 - 35 mmol/L [facility] BUN 20(H) 6 - 19 mg/dL [facility] CREATININE 0.90 0.5 - 1.5 mg/dL [facility] GLUCOSE 143(H) 70 - 99 mg/dL [facility] ALBUMIN 4.8 3.9 - 4.8 g/dL [facility] TOTAL PROTEIN 7.3 6.5 - 8.0 g/dL [facility] CALCIUM 9.8 8.4 - 10.3 mg/dL [facility] ALKALINE PHOSPHATASE 94 39 - 117 U/L [facility] TOTAL BILIRUBIN 0.3 0.0 - 1.2 mg/dL [facility] AST 79(H) 0 - 37 U/L [facility] ALT 73(H) 0 - 40 U/L [facility] GLOBULIN 2.5 1 - 4.8 g/dL [facility] EGFR 94 >59 mL/min/1.7 3m2 [facility] Comment:Estimated glomerular filtration rate calculated using the CKD-EPI refit equation. ANION GAP 19 10 - 20 mmol/L [facility] Blood 05/09/2022 3:02 PM EDT 05/09/2022 3:08 PM EDT us Tammy Madrigal PA-C LAB BLOOD ORDERABLES Final Resu lt [address] [id number] * TSH (05/09/2022 3:02 PM EDT) TSH 0.90 0.27 - 4.20 uIU/mL [facility] Blood 05/09/2022 3:02 PM EDT 05/09/2022 3:08 PM EDT us Tammy Madrigal PA-C LAB BLOOD ORDERABLES Final Resu lt [address] [address] from Last 3 Months or Most Recently Relevant to Health Maintenance [facility] [address] [place] [address] [place] [address] [place] [address] [employer] [address] [place] [address] Care Teams Transport Aircrewman Relationship Specialty Start Date End Date Ray Bedolla MD [address] [place] [address] [phone] PCP - General Family Medicine 10/22/18 Additional Source Comments The information contained in this document represents components of the legal health record. It is not the complete legal health record.[facility]
--- OUTSIDE RECORDS SUMMARY | 2025-04-06 17:17 | XMS_ITS | Encounter Summary ---
Author Organization [facility] Address [address] [place] [phone] Phone Care Team Providers Care Linen Room Worker Name Role Phone Ray Bedolla MD Primary Care Provider + Encounter Details Date Type Department Care Team (Late st Contact Info) Description 05/20/2018 Procedure Pass [facility] Endoscopy Admitting Dept Virtual Department [address] [place] [address] Social History Tobacco Use Types Packs/Day Years Used Date Smoking Tobacco: Never Assessed Sex and Gender Information Value Date Recorded Sex Assigned at Male 11/27/2021 7:50 AM EDT Legal Sex Male 9:54 PM EDT Gender Identity Male 11/27/2021 7:50 AM EDT Sexual Orientation Not on file documented as of this encounter Plan of Treatment Not on file documented as of this encounter Visit Diagnoses Not on filedocumented in this encounter Additional Health Concerns Infection Onset Date Last Indicated Resolved Time CoV-Risk 10/11/2020 10/11/2020 10/21/2020 1:23 AM EDT documented as of this encounter Care Teams Linen Room Worker Relationship Specialty Start Date End Date Ray Bedolla MD [address] [place] [phone] PCP - General Family Medicine 05/03/18 documented as of this encounter Additional Source Comments The information contained in this document represents components of the legal health record. It is not the complete legal health record.[facility]
--- OUTSIDE RECORDS SUMMARY | 2025-04-06 17:17 | XMS_ITS | Encounter Summary ---
Author Organization [facility] Address [address] [place] [phone] Phone Care Team Providers Care 8Th Grade Mathematics Teacher Name Role Phone Ray Bedolla MD Primary Care Provider + Reason for Referral * MRI/CAT Scan - Closed Specialty Diagnoses / Procedures Referred By Contac t Referred To Contact Radiology Diagnoses Adenocarcinoma, gastric cardia Procedures CT Chest CHG DIAGNOSTIC COMPUTED TOMOGRAPHY THORAX W/CONTRAST Rakan Forbes MD Phone: tel: fax: mailto:[email or web address] Referral ID Status Reason Start Date Expiration Date Visits Re quested Visits Authorized [id number] Closed 05/20/2022 07/19/2022 1 1 * MRI/CAT Scan - Closed Specialty Diagnoses / Procedures Referred By Contac t Referred To Contact Radiology Diagnoses Adenocarcinoma, gastric cardia Procedures CT Abdomen Only (No Pelvis) CHG CT SCAN OF ABDOMEN CONTRAST Rakan Forbes MD Phone: tel: fax: mailto:[email or web address] Referral ID Status Reason Start Date Expiration Date Visits Re quested Visits Authorized [id number] Closed 05/20/2022 07/19/2022 1 1 Encounter Details Date Type Department Care Team (Latest Contact Info) Description 05/20/2022 Transcribe Orders [facility] Department [address] [place] [phone] Rakan Forbes MD [address] [place] [phone] [email or web address] Adenocarcinoma, gastric cardia (Primary Dx) Social History Tobacco Use Types Packs/Day Years Used Date Smoking Tobacco: Former Cigarettes Q uit: 2006 Smokeless Tobacco: Never Alcohol Use Standard Drinks/Week Comments Yes 0 (1 standard drink = 0.6 oz pur e alcohol) 2 times a year Sex and Gender Information Value Date Recorded Sex Assigned at Male 11/27/2021 7:50 AM EDT Legal Sex Male 9:54 PM EDT Gender Identity Male 11/27/2021 7:50 AM EDT Sexual Orientation Not on file documented as of this encounter Plan of Treatment Not on file documented as of this encounter Results * CT CHEST WITH CONTRAST (05/26/2022 1:00 PM EST) Anatomical Region Laterality Modality Chest Computed Tomogra phy 05/26/2022 4:33 PM EST Impressions 05/26/2022 6:07 [...] nodules are too small to characterize. us Rakan Forbes MD [facility] CT CHEST Final Result * CT ABDOMEN WITH CONTRAST (05/26/2022 1:00 [...] sagittal planes. COMPARISON: CT ABDOM & PELVIS C2010- FINDINGS: Chest: Devices/Tubes/Lines: None. Lungs: Mild paraseptal [...] nodules are too small to characterize. us Rakan Forbes MD IMG CT XSPECIALTY ORDERABLES F inal Result documented in this encounter Visit Diagnoses Diagnosis Adenocarcinoma, gastric cardia- Primary Adenocarcinoma, gastric cardia documented in this encounter Care Teams 8Th Grade Mathematics Teacher Relationship Specialty Start Date End Date Ray Bedolla MD [address] [place] [phone] PCP - General Family Medicine 05/03/18 documented as of this encounter Additional Source Comments The information contained in this document represents components of the legal health record. It is not the complete legal health record.[facility]
--- OUTSIDE RECORDS SUMMARY | 2025-04-06 17:17 | XMS_ITS | Encounter Summary ---
Author Organization [facility] Address [address] [facility] [address] [place] [address] Phone Care Team Providers Care Card Cutter Name Role Phone Ray Bedolla MD Primary Care Provider + Encounter Details Date Type Department Care Team (Late st Contact Info) Description 05/20/2022 Procedure Pass [facility], Ct Scan - [address] [address] Social History Tobacco Use Types Packs/Day Years [...] Diagnoses Not on filedocumented in this encounter Care Teams Card Cutter Relationship Specialty Start Date End Date Ray Bedolla MD [address] [place] [phone] PCP - General Family Medicine 05/03/18 documented as of this encounter Additional Source Comments The information contained in this document represents components of the legal health record. It is not the complete legal health record.[facility]
--- OUTSIDE RECORDS SUMMARY | 2025-04-06 17:17 | XMS_ITS | Encounter Summary ---
Author Organization [facility] Address [address] [place] [phone] Phone Care Team Providers Care Ms Sql Server Developer Name Role Phone Ray Bedolla MD Primary Care Provider + Encounter Details Date Type Department Care Team (Late st Contact Info) Description 05/19/2022 Procedure Pass [facility] Admitting Dept Virtual Department [address] [place] [address] Social History Tobacco Use Types Packs/Day Years [...] on filedocumented in this encounter Care Teams Ms Sql Server Developer Relationship Specialty Start Date End Date Ray Bedolla MD [address] [place] [address] PCP - General Family Medicine 05/03/18 documented as of this encounter Additional Source Comments The information contained in this document represents components of the legal health record. It is not the complete legal health record.[facility]
--- OUTSIDE RECORDS SUMMARY | 2025-04-06 17:17 | XMS_ITS | Encounter Summary ---
Author Organization [facility] Address [address] [facility] [address] [place] [address] Phone Care Team Providers Care Social Work Administrator Name Role Phone Ray Bedolla MD Primary Care Provider + Encounter Details Date Type Department Care Team (Late st Contact Info) Description 05/20/2022 Procedure Pass [facility], Ct Scan - [address] [address] Social History Tobacco Use Types Packs/Day Years [...] on filedocumented in this encounter Care Teams Social Work Administrator Relationship Specialty Start Date End Date Ray Bedolla MD [address] [place] [address] PCP - General Family Medicine 05/03/18 documented as of this encounter Additional Source Comments The information contained in this document represents components of the legal health record. It is not the complete legal health record.[facility]
--- OUTSIDE RECORDS SUMMARY | 2025-04-06 17:18 | XMS_ITS | Encounter Summary ---
Author Organization [facility] Address [address] [place] [address] Phone Care Team Providers Care Engineering Production Liaison Name Role Phone Ray Bedolla MD Primary Care Provider + Encounter Details Date Type Department Care Team (Latest Contact Info) Description 05/16/2022 Transcribe Orders Virtual Department [address] [place] [phone] Tammy Madrigal PA-C [address] [place] [address] [email or web address] Elevated LFTs (Primary Dx) Social History Tobacco Use Types [...] documented as of this encounter Results * US ABDOMEN LIMITED RIGHT UPPER QUADRANT (06/02/2022 9:04 AM EST) Anatomical Region Laterality Modality Abdomen Ultrasound 06/02/2022 12:3 8 PM EST Impressions 06/02/2022 12:42 PM EST 1. No focal hepatic parenchymal lesion or evidence of biliary obstruction. Narrative 06/02/2022 12:42 PM EST US ABDOMEN LIMITED RIGHT UPPER QUADRANT TECHNIQUE: US Abdominal limited right upper quadrant. COMPARISON: 05/26/2022 CT FINDINGS: Liver: Homogeneous parenchymal echo-texture without focal mass or cyst. Main Portal Vein: Patent with hepatopedal flow direction. Gallbladder: No cholelithiasis or focal wall thickening. Biliary: No evidence of intrahepatic or extrahepatic duct distention. The common bile duct measures 4 mm. Multiple cysts again demonstrated in the right kidney without mekhi hydronephrosis. CT-demonstrated intrarenal calculi not assessed. Procedure Note Rakan Garcia MD - 06/02/2022 US ABDOMEN LIMITED RIGHT UPPER QUADRANT TECHNIQUE: US Abdominal limited right upper quadrant. COMPARISON: 05/26/2022 CT FINDINGS: Liver: Homogeneous parenchymal echo-texture without focal mass or cyst. Main Portal Vein: Patent with hepatopedal flow direction. Gallbladder: No cholelithiasis or focal wall thickening. Biliary: No evidence of intrahepatic or extrahepatic duct distention. The common bile duct measures 4 mm. Multiple cysts again demonstrated in the right kidney without frankhydronephrosis. CT-demonstrated intrarenal calculi not assessed. IMPRESSION: 1. No focal hepatic parenchymal lesion or evidence of biliaryobstruction. Tammy Madrigal PA-C IMG US ABDOMEN Final Result documented in this encounter Visit Diagnoses Diagnosis Elevated LFTs- Primary Other abnormal blood chemistry Elevated LFTs Other abnormal blood chemistry documented in this encounter Care Teams Engineering Production Liaison Relationship Specialty Start Date End Date Ray Bedolla MD [address] [place] [phone] PCP - General Family Medicine 05/03/18 documented as of this encounter Additional Source Comments The information contained in this document represents components of the legal health record. It is not the complete legal health record.[facility]
== END 2025-04-06 15:31 | disposition home or self-care (01) ==
PROVIDERS: Physician Assistant Medical; Emergency Provider Emergency Medicine; PCP Family Medicine
DX: S63.502A Unspecified sprain of left wrist, initial encounter (principal); R91.1 Solitary pulmonary nodule; W19.XXXA Unspecified fall, initial encounter; Y93.9 Activity, unspecified; Y92.9 Unspecified place or not applicable; Y99.9 Unspecified external cause status; M25.532 Pain in left wrist; R07.81 Pleurodynia; G47.33 Obstructive sleep apnea (adult) (pediatric); J44.9 Chronic obstructive pulmonary disease, unspecified; I10 Essential (primary) hypertension; Z85.01 Personal history of malignant neoplasm of esophagus; D49.6 Neoplasm of unspecified behavior of brain
CPT/HCPCS: 36415; 70450; 71250; 73110; 73130; 80053; 85025; 85610; 99284

== ENCOUNTER → 2025-04-06 12:22 | Outpatient (BNV) | payer OTHER, SELFPAY | PROVIDERS: PCP Family Medicine; Visit Provider Radiology Diagnostic Radiology | DX: J43.8 Other emphysema (principal); D44.3 Neoplasm of uncertain behavior of pituitary gland; M25.532 Pain in left wrist; M13.842 Other specified arthritis, left hand | CPT/HCPCS: 70450; 71250; 73110; 73130 ==

== ENCOUNTER 2025-04-11 09:00 | Outpatient (REF) | payer OTHER, SELFPAY ==
--- NOTE | ~2025-04-11 | XR_ITS ---
EXAMINATION: XR WRIST NAVICULAR LEFT HISTORY: M25.532 - Pain in left wrist COMPARISON: Comparison is made with the prior examination dated 04/06/2025. FINDINGS: Four views of the left wrist, including a scaphoid view are submitted. The bones are osteopenic. There is no fracture or dislocation. Again seen are erosions involving the scaphoid and distal radius without change. There is diffuse soft tissue swelling. XR/XR wrist LT w scaphoid IMPRESSION: Osteopenia. Erosions involving the distal radius and scaphoid without significant change. Electronically signed by: Hardik Patricia MD 04/11/2025 09:25 AM EDT
== END 2025-04-11 09:01 | disposition home or self-care (01) ==
LOC: HO.HOSX 09:00
PROVIDERS: PCP Family Medicine
DX: S52.502A Unspecified fracture of the lower end of left radius, initial encounter for closed fracture (principal); W01.0XXA Fall on same level from slipping, tripping and stumbling without subsequent striking against object, initial encounter; Y92.69 Other specified industrial and construction area as the place of occurrence of the external cause; Y99.0 Civilian activity done for income or pay
CPT/HCPCS: 73110; 99202

== ENCOUNTER 2025-04-11 09:00 | Outpatient (AMB) | payer OTHER, SELFPAY ==
--- NOTE | 2025-04-11 09:25 | A.OFFVIS_ITS ---
Vital Signs 04/11/25 09:26 Height 6 ft Weight 199 lb BMI 27.0 Intake Visit Reasons: ED f/u- Fall, Left wrist sprain DOI 04/05/25 Intake Note: Mustapha is a 69 year old right hand dominant male, new patient, who presents today for an ED follow up for evaluation of a Right Wrist Sprain status post work-related injury, DOI: 04/05/25. Patient presented to [facility] on 04/06/25 reporting he tripped and fell while at work, landing on his left wrist. Patient complains of pain on the ulnar and volar aspect of the wrist. He is taking Aleve with some relief. He denies numbness, tingling, or finger locking. Patient continues wearing Velcro writst brace given at the ED. He denies any previous injuries or surgeries to the left hand. Per ED note, there is a concern for a scaphoid fract ure. Allergies No Known Allergies Allergy (Verified 04/11/25 09:29) HPI [facility] ED f/u- Fall, Left wrist sprain DOI 04/05/25: Details: Mustapha is a 69 year old right hand dominant male, new patient, who presents today for an ED follow up for evaluation of a Right Wrist Sprain status post work-related injury, DOI: 04/05/25. Patient presented to [facility] on 04/06/25 reporting he tripped and fell while at work, landing on his left wrist. Patient complains of pain on the ulnar and volar aspect of the wrist. He is taking Aleve with some relief. He denies numbness, tingling, or finger locking. Patient continues wearing Velcro writst brace given at the ED. He denies any previous injuries or surgeries to the left hand. Per ED note, there is a concern for a scaphoid fracture. 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 Neuro: Normal sensation of the tips of all digits of the left hand at this time Vascular: Cap refill brisk Pain: Tenderness to palpation diffusely about the left distal radius, worst on the volar aspect ROM: Patient is able to make a closed fist and extend all digits of the left hand fully Skin: No lacerations or abrasions. General: Ecchymosis and edema noted of both the dorsal and volar aspects of the left wrist over the distal radius Psych: Appears grossly normal Affect normal Attitude cooperative Office Procedures AMB Fracture Care Fracture Billing Code: Fracture Billing Code Casting/Splints 14164-Oiybrlj Splint Application Procedure code (CPT) selection complete Results Reviewed Results Reviewed: X-rays obtained in the office today and independently reviewed by me, Inder Schwartz PA-C, demonstrate area of lucency in the ulnar aspect of the left distal radius concerning for nondisplaced distal radius fracture. Assessment & Plan Assessment & Plan (1) Fracture of left distal radius: Code(s): S52.502A - Unspecified fracture of the lower end of left radius, initial encounter for closed fracture Category: Medical Plan 1. Nondisplaced left distal radius fracture Date of injury 04/05/2025 Patient is educated about this injury Patient is educated about the typical recovery course At this time, patient is placed into a short-arm splint due to ongoing significant swelling and ecchymosis Patient is educated on proper splint care and precautions 2 lb weight limit in left hand Patient will follow-up in 1 week for repeat x-rays and anticipation of cast placement at that time Patient understands this in his amenable to this plan Follow-up in 1 week, sooner with any acute concerns Orders: Orders XR wrist LT w scaphoid Today M25.532 - Pain in left wrist Coding Level of Care Code Est Pt Level 3 (41240) Diagnoses Fracture of left distal radius S52.502A CPT Codes Fracture Care - Fracture Billing Code: Fracture Billing Code ([id number]) Splint - CPT: 84122-Eordsiv Splint Application ([id number])
[2025-04-11 09:26] VITALS: BMI 27.0
--- OUTSIDE RECORDS SUMMARY | 2025-04-11 09:34 | XMS_ITS | Encounter Summary ---
Author Organization [facility] Address [address] [facility] [address] [place] [address] Phone Care Team Providers Care Microbiology Director Name Role Phone Ray Bedolla MD Primary Care Provider + Encounter Details Date Type Department Care Team (Late st Contact Info) Description 05/20/2022 Procedure Pass [facility], Ct Scan - [address] [address] Social History Tobacco Use Types Packs/Day Years [...] on filedocumented in this encounter Care Teams Microbiology Director Relationship Specialty Start Date End Date Ray Bedolla MD [address] [place] [address] PCP - General Family Medicine 05/03/18 documented as of this encounter Additional Source Comments The information contained in this document represents components of the legal health record. It is not the complete legal health record.[facility]
--- OUTSIDE RECORDS SUMMARY | 2025-04-11 09:34 | XMS_ITS | Patient Health Record ---
Author Organization [facility] Address [address] [place] [address] Care Team Providers Care Catering Director Name Role Phone David REYES Ting Primary Care Provider Julio Barrera Unavailable [phone] Reason For Referral No Information Medications Medication SIG (Take, Route, Frequency, Duration) Notes Start Date End Date Status Triamterene-HCTZ 37.5-25 MG Oral; Duration: 90 Active Metoprolol Succinate ER 100 MG Oral; Duration: 90 Active Night Splint AFO - L1930 as directed 05/16/2016 Active Fluarix Quadrivalent 0.5 ML Intramuscular Not-Taking Zostavax 41591 UNT/0.65ML Subcutaneous; Duration: 1 Not-Taking Social History Tobacco use other than smoking: Question Answer Notes Are you an other tobacco user? No Problems Problem Type SNOMED Code ICD Code Onset Dates Problem Status W/U Status Risk Notes Problem Plantar fascial fibromatosis (49903480) Plantar fascial fibromatosis (M72.2) Active confirmed Encounters Encounter Location Date Provider Diagnosis [facility] [address] [place] [address] 05/02/2024 Julio Blandon [facility] [address] [place] [address] 10/27/2024 Julio Blandon Plan Of Treatment Pending Test Test Name Order Date X ray : Foot, left 3V 06/09/2017 [id number] TENDON SHEATH/LIGAMENT 1 07/23/2015 [id number] TENDON SHEATH/LIGAMENT 1 07/27/2015 Insurance Providers Payer Name Payer Address Payer Phone Subscriber Number Group Number Insured Name Patient Relationship to Insured Coverage Start Date Coverage End Date [facility] [address] [facility] [place] [place] [address] [phone] [id number] Mustapha Segura Self - patient is the insured Medical (General) History Medical History History ICD Code Arthritis High blood pressure Chicken pox Surgical History Surgery Date(Month/Year) total left knee replacement 2009 total right knee replacement 2014
--- OUTSIDE RECORDS SUMMARY | 2025-04-11 09:35 | XMS_ITS | Encounter Summary ---
Author Organization [facility] Address [address] [facility] [address] [place] [phone] Phone Care Team Providers Care Cyber Security Administrator Name Role Phone Ray Bedolla MD Primary Care Provider + Encounter Details Date Type Department Care Team (Late st Contact Info) Description 05/20/2022 Procedure Pass [facility], Ct Scan - [address] [address] Social History Tobacco Use Types Packs/Day Years [...] on filedocumented in this encounter Care Teams Cyber Security Administrator Relationship Specialty Start Date End Date Ray Bedolla MD [address] [place] [address] PCP - General Family Medicine 05/03/18 documented as of this encounter Additional Source Comments The information contained in this document represents components of the legal health record. It is not the complete legal health record.[facility]
--- OUTSIDE RECORDS SUMMARY | 2025-04-11 09:35 | XMS_ITS | Encounter Summary ---
Author Organization [facility] Address [address] [place] [address] Phone Care Team Providers Care Data Center Project Manager Name Role Phone Ray Bedolla MD Primary Care Provider + Encounter Details Date Type Department Care Team (Late st Contact Info) Description 05/20/2018 Procedure Pass [facility] Endoscopy Admitting Dept Virtual Department [address] [place] [address] Social History Tobacco Use Types Packs/Day Years [...] documented as of this encounter Care Teams Data Center Project Manager Relationship Specialty Start Date End Date Ray Bedolla MD [address] [place] [address] PCP - General Family Medicine 05/03/18 documented as of this encounter Additional Source Comments The information contained in this document represents components of the legal health record. It is not the complete legal health record.[facility]
--- OUTSIDE RECORDS SUMMARY | 2025-04-11 09:35 | XMS_ITS | Encounter Summary ---
Author Organization [facility] Address [address] [place] [address] Phone Care Team Providers Care Crystal Machining Coordinator Name Role Phone Ray Bedolla MD Primary Care Provider + Reason for Referral * MRI/CAT Scan - Closed Specialty Diagnoses / Procedures Referred By Contac t Referred To Contact Radiology Diagnoses Adenocarcinoma, gastric cardia Procedures CT Chest CHG DIAGNOSTIC COMPUTED TOMOGRAPHY THORAX W/CONTRAST Rakan Forbes MD Phone: tel: fax: mailto:[email or web address] Referral ID Status Reason Start Date Expiration Date Visits Re quested Visits Authorized [id number] Closed 05/20/2022 07/19/2022 1 1 * MRI/CAT Scan - Closed Specialty Diagnoses / Procedures Referred By Contac t Referred To Contact Radiology Diagnoses Adenocarcinoma, gastric cardia Procedures CT Abdomen Only (No Pelvis) CHG CT SCAN OF ABDOMEN CONTRAST Rakan Forbes MD Phone: tel: fax: mailto:[email or web address] Referral ID Status Reason Start Date Expiration Date Visits Re quested Visits Authorized [id number] Closed 05/20/2022 07/19/2022 1 1 Encounter Details Date Type Department Care Team (Latest Contact Info) Description 05/20/2022 Transcribe Orders [facility] Department [address] [place] [address] Rakan Forbes MD [address] [place] [address] [email or web address] Adenocarcinoma, gastric cardia (Primary Dx) Social History [...] small to characterize. us Rakan Forbes MD [facility] CT CHEST Final Result * CT [...] cardia documented in this encounter Care Teams Crystal Machining Coordinator Relationship Specialty Start Date End Date Ray Bedolla MD [address] [place] [address] PCP - General Family Medicine 05/03/18 documented as of this encounter Additional Source Comments The information contained in this document represents components of the legal health record. It is not the complete legal health record.[facility]
--- OUTSIDE RECORDS SUMMARY | 2025-04-11 09:35 | XMS_ITS | Clinical Summary ---
Author Organization [facility], Address [address] [place] [address] Phone Care Team Providers Care Physical Science Technician Name Role Phone Ray Bedolla MD Primary Care Provider +1- [phone] Allergies No known active allergies Medications zolpidem [...] patient's age to complete this topic Insurance [facility] Care Teams Physical Science Technician Relationship Specialty Start Date End Date Ray Bedolla MD [address] [place] [phone] PCP - General Family Medicine 06/10/22
--- OUTSIDE RECORDS SUMMARY | 2025-04-11 09:36 | XMS_ITS | Encounter Summary ---
Author Organization [facility] Address [address] [place] [address] Phone Care Team Providers Care Body Joiner Name Role Phone Ray Bedolla MD Primary Care Provider + Encounter Details Date Type Department Care Team (Late st Contact Info) Description 05/19/2022 Procedure Pass [facility] Endoscopy Admitting Dept Virtual Department [address] [place] [address] Social History Tobacco Use Types Packs/Day Years [...] on filedocumented in this encounter Care Teams Body Joiner Relationship Specialty Start Date End Date Ray Bedolla MD [address] [place] [address] PCP - General Family Medicine 05/03/18 documented as of this encounter Additional Source Comments The information contained in this document represents components of the legal health record. It is not the complete legal health record.[facility]
--- OUTSIDE RECORDS SUMMARY | 2025-04-11 09:36 | XMS_ITS | Clinical Summary ---
Author Organization [facility] Address [address] [place] [address] Phone Care Team Providers Care Basketball Player Name Role Phone Ray Bedolla MD Primary [...] 67 Admit Type: Outpatient Gender: Male Room: [place] [address] Referring MD: Ray Bedolla Exam Type: Colonoscopy [...] monitored continuously. The Olympus adult variable colonoscope [id number] #2 was introduced through the anus and [...] 12:24 PM Procedure Code(s): --- Professional --- 51905, Colonoscopy, flexible; diagnostic, including collection of specimen(s) by brushing or washing, when performed (separateprocedure) --- Technical --- 81045, Colonoscopy, flexible; diagnostic, including collection of specimen(s) [...] Iron deficiency anemia, unspecified CPT copyright 2020 [employer]. All rights reserved. The codes documented in this report are preliminary and upon hims coder reviewmay be revised to meet current compliance requirements. Procedure Date: 05/19/2022 12:24:[address] [place] [address] us Ray Bedolla MD GI PROCEDURE ORDERABLES Final Result * (ABNORMAL) Comprehensive metabolic panel (05/09/2022 3:02 PM EDT) SODIUM 138 133 - 146 mmol/L [facility] POTASSIUM 3.9 3.3 - 5.1 mmol/L [facility] CHLORIDE 99 96 - 108 mmol/L [facility] CO2 24 21 - 35 mmol/L [facility] BUN 20(H) 6 - 19 mg/dL [facility] CREATININE 0.90 0.5 - 1.5 mg/dL [facility] GLUCOSE 143(H) 70 - 99 mg/dL [facility] ALBUMIN 4.8 3.9 - 4.8 g/dL [facility] TOTAL PROTEIN 7.3 6.5 - 8.0 g/dL [facility] CALCIUM 9.8 8.4 - 10.3 mg/dL [facility] ALKALINE PHOSPHATASE 94 39 - 117 U/L [facility] TOTAL BILIRUBIN 0.3 0.0 - 1.2 mg/dL [facility] AST 79(H) 0 - 37 U/L [facility] ALT 73(H) 0 - 40 U/L [facility] GLOBULIN 2.5 1 - 4.8 g/dL [facility] EGFR 94 >59 mL/min/1.7 3m2 [facility] Comment:Estimated glomerular filtration rate calculated using the CKD-EPI refit equation. ANION GAP 19 10 - 20 mmol/L [facility] Blood 05/09/2022 3:02 PM EDT 05/09/2022 3:08 PM EDT us Tammy Madrigal PA-C LAB BLOOD ORDERABLES Final Resu lt [address] [address] * TSH (05/09/2022 3:02 PM EDT) TSH 0.90 0.27 - 4.20 uIU/mL [facility] Blood 05/09/2022 3:02 PM EDT 05/09/2022 3:08 PM EDT us Tammy Madrigal PA-C LAB BLOOD ORDERABLES Final Resu lt [address] [address] from Last 3 Months or Most Recently Relevant to Health Maintenance [facility] [address] [place] [id number] [facility] [place] [address] [place] [address] HMO WORKERS COMPENSATION [address] [place] [address] Care Teams Basketball Player Relationship Specialty Start Date End Date Ray Bedolla MD [address] [place] [address] [phone] PCP - General Family Medicine 10/22/18 Additional Source Comments The information contained in this document represents components of the legal health record. It is not the complete legal health record.[facility]
--- OUTSIDE RECORDS SUMMARY | 2025-04-11 09:36 | XMS_ITS | Encounter Summary ---
Author Organization [facility] Address [address] [place] [address] Phone Care Team Providers Care Welding Teacher Name Role Phone Ray Bedolla MD Primary Care Provider + Encounter Details Date Type Department Care Team (Latest Contact Info) Description 05/16/2022 Transcribe Orders Virtual Department [address] [place] [address] Tammy Madrigal PA-C [address] [place] [address] [email or web address] Elevated LFTs (Primary Dx) Social History Tobacco [...] chemistry documented in this encounter Care Teams Welding Teacher Relationship Specialty Start Date End Date Ray Bedolla MD [address] [place] [address] PCP - General Family Medicine 05/03/18 documented as of this encounter Additional Source Comments The information contained in this document represents components of the legal health record. It is not the complete legal health record.[facility]
== END 2025-04-11 10:23 | disposition home or self-care (01) ==
LOC: HO.HOS 09:00
PROVIDERS: PCP Family Medicine
DX: S52.502A Unspecified fracture of the lower end of left radius, initial encounter for closed fracture (principal)
CPT/HCPCS: 25600; 99203

== ENCOUNTER → 2025-04-11 09:08 | Outpatient (BNV) | payer OTHER, SELFPAY | PROVIDERS: PCP Family Medicine; Visit Provider Radiology Diagnostic Radiology | DX: M25.832 Other specified joint disorders, left wrist (principal) | CPT/HCPCS: 73110 ==

== ENCOUNTER 2025-04-13 09:04 | Outpatient (AMB) | payer OTHER, SELFPAY ==
--- NOTE | 2025-04-13 09:39 | A.OFFVIS_ITS ---
Intake Visit Reasons: OV-LT Distal Radius Fx, DOI 04/05/25 splint change Allergies No Known Allergies Allergy (Verified 04/11/25 09:29) HPI HPI OV-LT Distal Radius Fx, DOI 04/05/25 splint change: Details: Patient comes in today for a splint change as his splint became loose overnight [facility] Medical History (Updated 04/11/25 @ 13:41 by BAIRON Francisco) History of esophageal cancer Surgical History (Updated 04/11/25 @ 09:33 by ANJEL Blackmon) History of knee surgery Social History (Updated 04/11/25 @ 09:31 by ANJEL Blackmon) Alcohol intake: current Alcohol intake frequency: holidays/special occasions only Patient Tobacco Use Status: Former Tobacco user Current occupational status: employed 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 The patient will follow-up on 04/25/2025 as planned. Coding Level of Care Code Global (94823) Diagnoses Fracture of left distal radius S52.502A CPT Codes Splint - CPT: 83573-Oidilvs Splint Application ([id number])
--- OUTSIDE RECORDS SUMMARY | 2025-04-13 09:50 | XMS_ITS | Encounter Summary ---
Author Organization [facility] Address [address] [place] [address] Phone Care Team Providers Care Clinical Trial Coordinator Name Role Phone Ray Bedolla MD Primary Care Provider + Reason for Referral * MRI/CAT Scan - Closed Specialty Diagnoses / Procedures Referred By Contac t Referred To Contact Radiology Diagnoses Adenocarcinoma, gastric cardia Procedures CT Chest CHG DIAGNOSTIC COMPUTED TOMOGRAPHY THORAX W/CONTRAST Rakan Forbes MD Phone: tel: fax: mailto:[email or web address] Referral ID Status Reason Start Date Expiration Date Visits Re quested Visits Authorized [id number] Closed 05/20/2022 07/19/2022 1 1 * MRI/CAT Scan - Closed Specialty Diagnoses / Procedures Referred By Contac t Referred To Contact Radiology Diagnoses Adenocarcinoma, gastric cardia Procedures CT Abdomen Only (No Pelvis) CHG CT SCAN OF ABDOMEN CONTRAST Rakan Forbes MD Phone: tel: fax: mailto:[email or web address] Referral ID Status Reason Start Date Expiration Date Visits Re quested Visits Authorized [id number] Closed 05/20/2022 07/19/2022 1 1 Encounter Details Date Type Department Care Team (Latest Contact Info) Description 05/20/2022 Transcribe Orders [facility] Department [address] [place] [address] Rakan Forbes MD [address] [place] [address] [email or web address] Adenocarcinoma, gastric cardia (Primary Dx) Social History [...] small to characterize. us Rakan Forbes MD [facility] CT CHEST Final Result [...] cardia documented in this encounter Care Teams Clinical Trial Coordinator Relationship Specialty Start Date End Date Ray Bedolla MD [address] [place] [address] PCP - General Family Medicine 05/03/18 documented as of this encounter Additional Source Comments The information contained in this document represents components of the legal health record. It is not the complete legal health record.[facility]
--- OUTSIDE RECORDS SUMMARY | 2025-04-13 09:50 | XMS_ITS | Encounter Summary ---
Author Organization [facility] Address [address] [place] [address] Phone Care Team Providers Care Sheep Sorter Name Role Phone Ray Bedolla MD Primary Care Provider + Encounter Details Date Type Department Care Team (Latest Contact Info) Description 05/16/2022 Transcribe Orders Virtual Department [address] [place] [address] Tammy Madrigal PA-C [address] [place] [address] [email or web address] Elevated LFTs (Primary Dx) Social History Tobacco [...] chemistry documented in this encounter Care Teams Sheep Sorter Relationship Specialty Start Date End Date Ray Bedolla MD [address] [place] [address] PCP - General Family Medicine 05/03/18 documented as of this encounter Additional Source Comments The information contained in this document represents components of the legal health record. It is not the complete legal health record.[facility]
--- OUTSIDE RECORDS SUMMARY | 2025-04-13 09:50 | XMS_ITS | Clinical Summary ---
Author Organization [facility] Address [address] [place] [address] Phone Care Team Providers Care Tip Printer Name Role Phone Ray Bedolla MD Primary [...] 67 Admit Type: Outpatient Gender: Male Room: [place] [address] Referring MD: Ray Bedolla Exam Type: Colonoscopy [...] monitored continuously. The Olympus adult variable colonoscope [id number] #2 was introduced through the anus and [...] 12:24 PM Procedure Code(s): --- Professional --- 42075, Colonoscopy, flexible; diagnostic, including collection of specimen(s) by brushing or washing, when performed (separateprocedure) --- Technical --- 28574, Colonoscopy, flexible; diagnostic, including collection of specimen(s) [...] Iron deficiency anemia, unspecified CPT copyright 2020 [employer]. All rights reserved. The codes documented in this report are preliminary and upon slabber light reviewmay be revised to meet current compliance requirements. Procedure Date: 05/19/2022 12:24:[address] [place] [address] us Ray Bedolla MD GI PROCEDURE ORDERABLES Final Result * (ABNORMAL) Comprehensive metabolic panel (05/09/2022 3:02 PM EDT) SODIUM 138 133 - 146 mmol/L [facility] POTASSIUM 3.9 3.3 - 5.1 mmol/L [facility] CHLORIDE 99 96 - 108 mmol/L [facility] CO2 24 21 - 35 mmol/L [facility] BUN 20(H) 6 - 19 mg/dL [facility] CREATININE 0.90 0.5 - 1.5 mg/dL [facility] GLUCOSE 143(H) 70 - 99 mg/dL [facility] ALBUMIN 4.8 3.9 - 4.8 g/dL [facility] TOTAL PROTEIN 7.3 6.5 - 8.0 g/dL [facility] CALCIUM 9.8 8.4 - 10.3 mg/dL [facility] ALKALINE PHOSPHATASE 94 39 - 117 U/L [facility] TOTAL BILIRUBIN 0.3 0.0 - 1.2 mg/dL [facility] AST 79(H) 0 - 37 U/L [facility] ALT 73(H) 0 - 40 U/L [facility] GLOBULIN 2.5 1 - 4.8 g/dL [facility] EGFR 94 >59 mL/min/1.7 3m2 [facility] Comment:Estimated glomerular filtration rate calculated using the CKD-EPI refit equation. ANION GAP 19 10 - 20 mmol/L [facility] Blood 05/09/2022 3:02 PM EDT 05/09/2022 3:08 PM EDT us Tammy Madrigal PA-C LAB BLOOD ORDERABLES Final Resu lt [address] [address] * TSH (05/09/2022 3:02 PM EDT) TSH 0.90 0.27 - 4.20 uIU/mL [facility] Blood 05/09/2022 3:02 PM EDT 05/09/2022 3:08 PM EDT us Tammy Madrigal PA-C LAB BLOOD ORDERABLES Final Resu lt [address] [address] from Last 3 Months or Most Recently Relevant to Health Maintenance [facility] [address] [place] [id number] [facility] [place] [address] [address] HMO WORKERS COMPENSATION [address] [place] [address] Care Teams Tip Printer Relationship Specialty Start Date End Date Ray Bedolla MD [address] [place] [address] [phone] PCP - General Family Medicine 10/22/18 Additional Source Comments The information contained in this document represents components of the legal health record. It is not the complete legal health record.[facility]
--- OUTSIDE RECORDS SUMMARY | 2025-04-13 09:50 | XMS_ITS | Encounter Summary ---
Author Organization [facility] Address [address] [place] [address] Phone Care Team Providers Care Torch Straightener And Heater Name Role Phone Ray Bedolla MD Primary Care Provider + Encounter Details Date Type Department Care Team (Late st Contact Info) Description 05/19/2022 Procedure Pass [facility] Endoscopy Admitting Dept Virtual Department [address] [place] [address] Social History Tobacco Use Types Packs/Day Years [...] on filedocumented in this encounter Care Teams Torch Straightener And Heater Relationship Specialty Start Date End Date Ray Bedolla MD [address] [place] [address] PCP - General Family Medicine 05/03/18 documented as of this encounter Additional Source Comments The information contained in this document represents components of the legal health record. It is not the complete legal health record.[facility]
--- OUTSIDE RECORDS SUMMARY | 2025-04-13 09:50 | XMS_ITS | Encounter Summary ---
Author Organization [facility] Address [address] [address] Phone Care Team Providers Care Delineator Name Role Phone Ray Bedolla MD Primary Care Provider + Encounter Details Date Type Department Care Team (Late st Contact Info) Description 05/20/2022 Procedure Pass [facility], Ct Scan - [address] [address] Social History Tobacco Use Types Packs/Day Years [...] on filedocumented in this encounter Care Teams Delineator Relationship Specialty Start Date End Date Ray Bedolla MD [address] [place] [address] PCP - General Family Medicine 05/03/18 documented as of this encounter Additional Source Comments The information contained in this document represents components of the legal health record. It is not the complete legal health record.[facility]
--- OUTSIDE RECORDS SUMMARY | 2025-04-13 09:50 | XMS_ITS | Patient Health Record ---
Author Organization [facility] Address [address] [place] [address] Care Team Providers Care Watch Dial Printer Name Role Phone David REYES Ting Primary Care Provider Julio Barrear Unavailable [phone] Reason For Referral No Information Medications Medication SIG (Take, Route, Frequency, Duration) Notes Start Date End Date Status Triamterene-HCTZ 37.5-25 MG Oral; Duration: 90 Active Metoprolol Succinate ER 100 MG Oral; Duration: 90 Active Night Splint AFO - L1930 as directed 05/16/2016 Active Fluarix Quadrivalent 0.5 ML Intramuscular Not-Taking Zostavax 08598 UNT/0.65ML Subcutaneous; Duration: 1 Not-Taking Social History Tobacco use other than smoking: Question Answer Notes Are you an other tobacco user? No Problems Problem Type SNOMED Code ICD Code Onset Dates Problem Status W/U Status Risk Notes Problem Plantar fascial fibromatosis (69715379) Plantar fascial fibromatosis (M72.2) Active confirmed Encounters Encounter Location Date Provider Diagnosis [facility] [address] [place] [address] 05/02/2024 Julio Blandon [facility] [address] [place] [address] 10/27/2024 Julio Blandon Plan Of Treatment Pending Test Test Name Order Date X ray : Foot, left 3V 06/09/2017 [id number] TENDON SHEATH/LIGAMENT 1 07/23/2015 [id number] TENDON SHEATH/LIGAMENT 1 07/27/2015 Insurance Providers Payer Name Payer Address Payer Phone Subscriber Number Group Number Insured Name Patient Relationship to Insured Coverage Start Date Coverage End Date [facility] [address] [facility] [place] [address] [phone] [id number] [place] Segura Self - patient is the insured Medical (General) History Medical History History ICD Code Arthritis High blood pressure Chicken pox Surgical History Surgery Date(Month/Year) total left knee replacement 2009 total right knee replacement 2014
--- OUTSIDE RECORDS SUMMARY | 2025-04-13 09:50 | XMS_ITS | Clinical Summary ---
Author Organization [facility], Address [address] [place] [address] Phone Care Team Providers Care Senior Animator Name Role Phone Ray Bedolla MD Primary Care Provider +1- [phone] Allergies No known active allergies Medications zolpidem [...] patient's age to complete this topic Insurance [facility] Care Teams Senior Animator Relationship Specialty Start Date End Date Ray Bedolla MD [address] [place] [phone] PCP - General Family Medicine 06/10/22
--- OUTSIDE RECORDS SUMMARY | 2025-04-13 09:50 | XMS_ITS | Encounter Summary ---
Author Organization [facility] Address [address] [address] Phone Care Team Providers Care Bacon De Rinder Name Role Phone Ray Bedolla MD Primary Care Provider + Encounter Details Date Type Department Care Team (Late st Contact Info) Description 05/20/2022 Procedure Pass [facility], Ct Scan - [address] [address] Social History Tobacco Use Types Packs/Day Years [...] on filedocumented in this encounter Care Teams Bacon De Rinder Relationship Specialty Start Date End Date Ray Bedolla MD [address] [place] [address] PCP - General Family Medicine 05/03/18 documented as of this encounter Additional Source Comments The information contained in this document represents components of the legal health record. It is not the complete legal health record.[facility]
--- OUTSIDE RECORDS SUMMARY | 2025-04-13 09:50 | XMS_ITS | Encounter Summary ---
Author Organization [facility] Address [address] [place] [address] Phone Care Team Providers Care Insurance Defense Attorney Name Role Phone Ray Bedolla MD Primary Care Provider + Encounter Details Date Type Department Care Team (Late st Contact Info) Description 05/20/2018 Procedure Pass [facility] Endoscopy Admitting Dept Virtual Department [address] [place] [address] Social History Tobacco Use Types Packs/Day Years [...] documented as of this encounter Care Teams Insurance Defense Attorney Relationship Specialty Start Date End Date Ray Bedolla MD [address] [place] [address] PCP - General Family Medicine 05/03/18 documented as of this encounter Additional Source Comments The information contained in this document represents components of the legal health record. It is not the complete legal health record.[facility]
== END 2025-04-13 09:41 | disposition home or self-care (01) ==
LOC: HO.HOS 09:04
PROVIDERS: PCP Family Medicine; Visit Provider Physician Assistant
DX: S52.502A Unspecified fracture of the lower end of left radius, initial encounter for closed fracture (principal)
CPT/HCPCS: 29125; 99024

== ENCOUNTER → 2025-04-13 09:04 | Outpatient (BNVA) | payer OTHER, SELFPAY | PROVIDERS: PCP Family Medicine; Visit Provider Physician Assistant | DX: S52.502A Unspecified fracture of the lower end of left radius, initial encounter for closed fracture (principal) | CPT/HCPCS: 29125; 99212 ==

== ENCOUNTER 2025-04-17 09:22 | Outpatient (AMB) | payer OTHER, SELFPAY ==
--- NOTE | 2025-04-17 09:31 | MHC.OFFVIS ---
Intake Visit Reasons: OV-LT Distal Radius Fx, DOI 04/05/25 splint change Intake Note: Comes in today for left distal radius fracture splint change Allergies No Known Allergies Allergy (Verified 04/11/25 09:29) HPI HPI OV-LT Distal Radius Fx, DOI 04/05/25 splint change: Details: 69-year-old gentleman comes into the office today for a splint change of his left wrist. He is unsure what happens but when he wakes up in the morning his splint is unraveled and loose. 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 Minimal swelling. Neurovascularly intact. Office Procedures Casting/Splints 24309-Mxyf/Wrist Cast Application Procedure code (CPT) selection complete Assessment & Plan Assessment & Plan (1) Fracture of left distal radius: Code(s): S52.502A - Unspecified fracture of the lower end of left radius, initial encounter for closed fracture Category: Medical Plan: Patient was placed in a short-arm cast in the office today. He will refrain from any lifting pushing pulling or carrying with the left hand. He will return on 05/02/2025 with Inder Schwartz as scheduled. Coding Level of Care Code Global (86087) Diagnoses Fracture of left distal radius S52.502A CPT Codes Casting - CPT: 13245-Pbxo/Wrist Cast Application ([id number])
--- OUTSIDE RECORDS SUMMARY | 2025-04-17 10:34 | XMS_ITS | Clinical Summary ---
Author Organization [facility], Address [address] [place] [address] Phone Care Team Providers Care Executive Creative Director Name Role Phone Ray Bedolla MD Primary Care Provider +1- [phone] Allergies No known active allergies Medications zolpidem [...] to complete this topic Insurance [facility] Care Teams Executive Creative Director Relationship Specialty Start Date End Date Ray Bedolla MD [address] [place] [phone] PCP - General Family Medicine 06/10/22
--- OUTSIDE RECORDS SUMMARY | 2025-04-17 10:34 | XMS_ITS | Patient Health Record ---
Author Organization [facility] Address [address] [place] [address] Care Team Providers Care General Pediatrician Name Role Phone David REYES Ting Primary Care Provider Julio Barrera Unavailable [phone] Reason For Referral No Information Medications Medication SIG (Take, Route, Frequency, Duration) Notes Start Date End Date Status Triamterene-HCTZ 37.5-25 MG Oral; Duration: 90 Active Metoprolol Succinate ER 100 MG Oral; Duration: 90 Active Night Splint AFO - L1930 as directed 05/16/2016 Active Fluarix Quadrivalent 0.5 ML Intramuscular Not-Taking Zostavax 59241 UNT/0.65ML Subcutaneous; Duration: 1 Not-Taking Social History Tobacco use other than smoking: Question Answer Notes Are you an other tobacco user? No Problems Problem Type SNOMED Code ICD Code Onset Dates Problem Status W/U Status Risk Notes Problem Plantar fascial fibromatosis (66294619) Plantar fascial fibromatosis (M72.2) Active confirmed Encounters Encounter Location Date Provider Diagnosis [facility] [address] [place] [address] 05/02/2024 Julio Blandon [facility] [address] [place] [address] 10/27/2024 Julio Blandon Plan Of Treatment Pending Test Test Name Order Date X ray : Foot, left 3V 06/09/2017 [id number] TENDON SHEATH/LIGAMENT 1 07/23/2015 [id number] TENDON SHEATH/LIGAMENT 1 07/27/2015 Insurance Providers Payer Name Payer Address Payer Phone Subscriber Number Group Number Insured Name Patient Relationship to Insured Coverage Start Date Coverage End Date [facility] [address] [facility] [place] [place] [address] [phone] [id number] Mustapha Segura Self - patient is the insured Medical (General) History Medical History History ICD Code Arthritis High blood pressure Chicken pox Surgical History Surgery Date(Month/Year) total left knee replacement 2009 total right knee replacement 2014
--- OUTSIDE RECORDS SUMMARY | 2025-04-17 10:34 | XMS_ITS | Encounter Summary ---
Author Organization [facility] Address [address] [address] Phone Care Team Providers Care Dowel Sticker Operator Name Role Phone Ray Bedolla MD Primary Care Provider + Encounter Details Date Type Department Care Team (Late st Contact Info) Description 05/20/2022 Procedure Pass [facility], Ct Scan - [address] [address] Social History Tobacco Use Types Packs/Day Years [...] on filedocumented in this encounter Care Teams Dowel Sticker Operator Relationship Specialty Start Date End Date Ray Bedolla MD [address] [place] [address] PCP - General Family Medicine 05/03/18 documented as of this encounter Additional Source Comments The information contained in this document represents components of the legal health record. It is not the complete legal health record.[facility]
--- OUTSIDE RECORDS SUMMARY | 2025-04-17 10:34 | XMS_ITS | Encounter Summary ---
Author Organization [facility] Address [address] [place] [address] Phone Care Team Providers Care Nailing Machine Feeder Name Role Phone Ray Bedolla MD Primary Care Provider + Reason for Referral * MRI/CAT Scan - Closed Specialty Diagnoses / Procedures Referred By Contac t Referred To Contact Radiology Diagnoses Adenocarcinoma, gastric cardia Procedures CT Chest CHG DIAGNOSTIC COMPUTED TOMOGRAPHY THORAX W/CONTRAST Rakan Forbes MD Phone: tel: fax: mailto:[email or web address] Referral ID Status Reason Start Date Expiration Date Visits Re quested Visits Authorized [id number] Closed 05/20/2022 07/19/2022 1 1 * MRI/CAT Scan - Closed Specialty Diagnoses / Procedures Referred By Contac t Referred To Contact Radiology Diagnoses Adenocarcinoma, gastric cardia Procedures CT Abdomen Only (No Pelvis) CHG CT SCAN OF ABDOMEN CONTRAST Rakan Forbes MD Phone: tel: fax: mailto:[email or web address] Referral ID Status Reason Start Date Expiration Date Visits Re quested Visits Authorized [id number] Closed 05/20/2022 07/19/2022 1 1 Encounter Details Date Type Department Care Team (Latest Contact Info) Description 05/20/2022 Transcribe Orders [facility] Department [address] [place] [address] Rakan Forbes MD [address] [place] [address] [email or web address] Adenocarcinoma, gastric cardia (Primary Dx) Social History [...] small to characterize. us Rakan Forbes MD [facility] [place] CHEST Final Result * CT ABDOMEN [...] cardia documented in this encounter Care Teams Nailing Machine Feeder Relationship Specialty Start Date End Date Ray Bedolla MD [address] [place] [address] PCP - General Family Medicine 05/03/18 documented as of this encounter Additional Source Comments The information contained in this document represents components of the legal health record. It is not the complete legal health record.[facility]
--- OUTSIDE RECORDS SUMMARY | 2025-04-17 10:34 | XMS_ITS | Encounter Summary ---
Author Organization [facility] Address [address] [place] [address] Phone Care Team Providers Care Java Programming Professor Name Role Phone Ray Bedolla MD Primary Care Provider + Encounter Details Date Type Department Care Team (Late st Contact Info) Description 05/20/2018 Procedure Pass [facility] Endoscopy Admitting Dept Virtual Department [address] [place] [address] Social History Tobacco Use Types Packs/Day Years [...] documented as of this encounter Care Teams Java Programming Professor Relationship Specialty Start Date End Date Ray Bedolla MD [address] [place] [address] PCP - General Family Medicine 05/03/18 documented as of this encounter Additional Source Comments The information contained in this document represents components of the legal health record. It is not the complete legal health record.[facility]
--- OUTSIDE RECORDS SUMMARY | 2025-04-17 10:34 | XMS_ITS | Encounter Summary ---
Author Organization [facility] Address [address] [address] Phone Care Team Providers Care Field Pipelines Supervisor Name Role Phone Ray Bedolla MD Primary Care Provider + Encounter Details Date Type Department Care Team (Late st Contact Info) Description 05/20/2022 Procedure Pass [facility], Ct Scan - [address] [address] Social History Tobacco Use Types Packs/Day Years [...] on filedocumented in this encounter Care Teams Field Pipelines Supervisor Relationship Specialty Start Date End Date Ray Bedolla MD [address] [place] [address] PCP - General Family Medicine 05/03/18 documented as of this encounter Additional Source Comments The information contained in this document represents components of the legal health record. It is not the complete legal health record.[facility]
--- OUTSIDE RECORDS SUMMARY | 2025-04-17 10:34 | XMS_ITS | Encounter Summary ---
Author Organization [facility] Address [address] [place] [address] Phone Care Team Providers Care Gore Maker Name Role Phone Ray Bedolla MD Primary Care Provider + Encounter Details Date Type Department Care Team (Latest Contact Info) Description 05/16/2022 Transcribe Orders Virtual Department [address] [place] [address] Tammy Madrigal PA-C [address] [place] [address] [email or web address] Elevated LFTs (Primary Dx) Social History Tobacco [...] chemistry documented in this encounter Care Teams Gore Maker Relationship Specialty Start Date End Date Ray Bedolla MD [address] [place] [address] PCP - General Family Medicine 05/03/18 documented as of this encounter Additional Source Comments The information contained in this document represents components of the legal health record. It is not the complete legal health record.[facility]
--- OUTSIDE RECORDS SUMMARY | 2025-04-17 10:34 | XMS_ITS | Encounter Summary ---
Author Organization [facility] Address [address] [place] [address] Phone Care Team Providers Care Management Psychologist Name Role Phone Ray Bedolla MD Primary Care Provider + Encounter Details Date Type Department Care Team (Late st Contact Info) Description 05/19/2022 Procedure Pass [facility] Endoscopy Admitting Dept Virtual Department [address] [place] [address] Social History Tobacco Use Types Packs/Day Years [...] on filedocumented in this encounter Care Teams Management Psychologist Relationship Specialty Start Date End Date Ray Bedolla MD [address] [place] [address] PCP - General Family Medicine 05/03/18 documented as of this encounter Additional Source Comments The information contained in this document represents components of the legal health record. It is not the complete legal health record.[facility]
== END 2025-04-17 10:19 | disposition home or self-care (01) ==
PROVIDERS: PCP Family Medicine; Visit Provider Physician Assistant
DX: S52.502A Unspecified fracture of the lower end of left radius, initial encounter for closed fracture (principal)
CPT/HCPCS: 29075; 99024

== ENCOUNTER → 2025-04-17 09:22 | Outpatient (BNVA) | payer OTHER, SELFPAY | PROVIDERS: PCP Family Medicine; Visit Provider Physician Assistant | DX: S52.502A Unspecified fracture of the lower end of left radius, initial encounter for closed fracture (principal) | CPT/HCPCS: 29075; 99212 ==

== ENCOUNTER 2025-05-01 14:40 | Outpatient (REF) | payer OTHER, SELFPAY ==
--- OUTSIDE RECORDS SUMMARY | 2025-05-01 18:30 | XMS_ITS | Encounter Summary ---
Author Organization [facility] Address [address] [facility] [address] [place] [address] Phone Care Team Providers Care French Teacher Name Role Phone Ray Bedolla MD Primary Care Provider + Encounter Details Date Type Department Care Team (Late st Contact Info) Description 05/20/2022 Procedure Pass [facility], Ct Scan - [address] [address] Social History Tobacco Use Types Packs/Day Years [...] on filedocumented in this encounter Care Teams French Teacher Relationship Specialty Start Date End Date Ray Bedolla MD [address] [place] [address] PCP - General Family Medicine 05/03/18 documented as of this encounter Additional Source Comments The information contained in this document represents components of the legal health record. It is not the complete legal health record.[facility]
--- OUTSIDE RECORDS SUMMARY | 2025-05-01 18:30 | XMS_ITS | Encounter Summary ---
Author Organization [facility] Address [address] [place] [address] Phone Care Team Providers Care Skiver Welt End Name Role Phone Ray Bedolla MD Primary Care Provider + Encounter Details Date Type Department Care Team (Late st Contact Info) Description 05/20/2018 Procedure Pass [facility] Endoscopy Admitting Dept Virtual Department [address] [place] [address] Social History Tobacco Use Types Packs/Day Years [...] documented as of this encounter Care Teams Skiver Welt End Relationship Specialty Start Date End Date Ray Bedolla MD [address] [place] [address] PCP - General Family Medicine 05/03/18 documented as of this encounter Additional Source Comments The information contained in this document represents components of the legal health record. It is not the complete legal health record.[facility]
--- OUTSIDE RECORDS SUMMARY | 2025-05-01 18:30 | XMS_ITS | Encounter Summary ---
Author Organization [facility] Address [address] [facility] [address] [place] [address] Phone Care Team Providers Care Zinc Plater Name Role Phone Ray Bedolla MD Primary Care Provider + Encounter Details Date Type Department Care Team (Late st Contact Info) Description 05/20/2022 Procedure Pass [facility], Ct Scan - [address] [address] Social History Tobacco Use Types Packs/Day Years [...] on filedocumented in this encounter Care Teams Zinc Plater Relationship Specialty Start Date End Date Ray Bedolla MD [address] [place] [address] PCP - General Family Medicine 05/03/18 documented as of this encounter Additional Source Comments The information contained in this document represents components of the legal health record. It is not the complete legal health record.[facility]
--- OUTSIDE RECORDS SUMMARY | 2025-05-01 18:30 | XMS_ITS | Encounter Summary ---
Author Organization [facility] Address [address] [place] [address] Phone Care Team Providers Care Ware Dresser Name Role Phone Ray Bedolla MD Primary Care Provider + Reason for Referral * MRI/CAT Scan - Closed Specialty Diagnoses / Procedures Referred By Contac t Referred To Contact Radiology Diagnoses Adenocarcinoma, gastric cardia Procedures CT Chest CHG DIAGNOSTIC COMPUTED TOMOGRAPHY THORAX W/CONTRAST Rakan Forbes MD Phone: tel: fax: mailto:[email or web address] Referral ID Status Reason Start Date Expiration Date Visits Re quested Visits Authorized [id number] Closed 05/20/2022 07/19/2022 1 1 * MRI/CAT Scan - Closed Specialty Diagnoses / Procedures Referred By Contac t Referred To Contact Radiology Diagnoses Adenocarcinoma, gastric cardia Procedures CT Abdomen Only (No Pelvis) CHG CT SCAN OF ABDOMEN CONTRAST Rakan Forbes MD Phone: tel: fax: mailto:[email or web address] Referral ID Status Reason Start Date Expiration Date Visits Re quested Visits Authorized [id number] Closed 05/20/2022 07/19/2022 1 1 Encounter Details Date Type Department Care Team (Latest Contact Info) Description 05/20/2022 Transcribe Orders [facility] Department [address] [place] [address] Rakan Forbes MD [address] [place] [address] [email or web address] Adenocarcinoma, gastric cardia (Primary Dx) Social [...] small to characterize. us Rakan Forbes MD [facility] CT CHEST Final Result * CT ABDOMEN [...] cardia documented in this encounter Care Teams Ware Dresser Relationship Specialty Start Date End Date Ray Bedolla MD [address] [place] [address] PCP - General Family Medicine 05/03/18 documented as of this encounter Additional Source Comments The information contained in this document represents components of the legal health record. It is not the complete legal health record.[facility]
--- OUTSIDE RECORDS SUMMARY | 2025-05-01 18:30 | XMS_ITS | Patient Health Record ---
Author Organization [facility] Address [address] [place] [address] Care Team Providers Care Truck Sales Representative Name Role Phone David REYES Ting Primary Care Provider Julio Barrera Unavailable [phone] Reason For Referral No Information Medications Medication SIG (Take, Route, Frequency, Duration) Notes Start Date End Date Status Triamterene-HCTZ 37.5-25 MG Oral; Duration: 90 Active Metoprolol Succinate ER 100 MG Oral; Duration: 90 Active Night Splint AFO - L1930 as directed 05/16/2016 Active Fluarix Quadrivalent 0.5 ML Intramuscular Not-Taking Zostavax 36554 UNT/0.65ML Subcutaneous; Duration: 1 Not-Taking Social History Tobacco use other than smoking: Question Answer Notes Are you an other tobacco user? No Problems Problem Type SNOMED Code ICD Code Onset Dates Problem Status W/U Status Risk Notes Problem Plantar fascial fibromatosis (14550969) Plantar fascial fibromatosis (M72.2) Active confirmed Encounters Encounter Location Date Provider Diagnosis [facility] [address] [place] [address] 05/02/[address] [facility] [address] [place] [address] 10/27/2024 Julio Blandon Plan Of Treatment Pending Test Test Name Order Date X ray : Foot, left 3V 06/09/2017 [id number] TENDON SHEATH/LIGAMENT 1 07/23/2015 [id number] TENDON SHEATH/LIGAMENT 1 07/27/2015 Insurance Providers Payer Name Payer Address Payer Phone Subscriber Number Group Number Insured Name Patient Relationship to Insured Coverage Start Date Coverage End Date [facility] [address] [facility] [place] [place] [address] [id number] Mustapha Segura Self - patient is the insured Medical (General) History Medical History History ICD Code Arthritis High blood pressure Chicken pox Surgical History Surgery Date(Month/Year) total left knee replacement 2009 total right knee replacement 2014
--- OUTSIDE RECORDS SUMMARY | 2025-05-01 18:31 | XMS_ITS | Encounter Summary ---
Author Organization [facility] Address [address] [place] [address] Phone Care Team Providers Care Second Cutter Name Role Phone Ray Bedolla MD Primary Care Provider + Encounter Details Date Type Department Care Team (Late st Contact Info) Description 05/19/2022 Procedure Pass [facility]oscopy Admitting Dept Virtual Department [address] [place] [address] Social History Tobacco Use Types Packs/Day Years [...] on filedocumented in this encounter Care Teams Second Cutter Relationship Specialty Start Date End Date Ray Bedolla MD [address] [place] [address] PCP - General Family Medicine 05/03/18 documented as of this encounter Additional Source Comments The information contained in this document represents components of the legal health record. It is not the complete legal health record.[facility]
--- OUTSIDE RECORDS SUMMARY | 2025-05-01 18:31 | XMS_ITS | Encounter Summary ---
Author Organization [facility] Address [address] [place] [address] Phone Care Team Providers Care Retail Team Member Name Role Phone Ray Bedolla MD Primary Care Provider + Encounter Details Date Type Department Care Team (Latest Contact Info) Description 05/16/2022 Transcribe Orders Virtual Department [address] [place] [address] Tammy Madrigal PA-C [address] [place] [address] [email or web address] Elevated LFTs (Primary Dx) Social History Tobacco [...] chemistry documented in this encounter Care Teams Retail Team Member Relationship Specialty Start Date End Date Ray Bedolla MD [address] [place] [address] PCP - General Family Medicine 05/03/18 documented as of this encounter Additional Source Comments The information contained in this document represents components of the legal health record. It is not the complete legal health record.[facility]
--- OUTSIDE RECORDS SUMMARY | 2025-05-01 18:31 | XMS_ITS | Clinical Summary ---
Author Organization [facility], Address [address] [place] [address] Phone Care Team Providers Care Sales Development Manager Name Role Phone Ray Bedolla MD Primary Care Provider +1- [phone] Allergies No known active allergies Medications zolpidem [...] to complete this topic Insurance [facility] Care Teams Sales Development Manager Relationship Specialty Start Date End Date Ray Bedolla MD [address] [place] [phone] PCP - General Family Medicine 06/10/22
--- OUTSIDE RECORDS SUMMARY | 2025-05-01 18:31 | XMS_ITS | Clinical Summary ---
Author Organization [facility] Address [address] [place] [phone] Phone Care Team Providers Care Mason Liner Name Role Phone Ray Bedolla MD Primary [...] 67 Admit Type: Outpatient Gender: Male Room: [place] [address] Referring MD: Ray Bedolla Exam Type: Colonoscopy [...] monitored continuously. The Olympus adult variable colonoscope [id number] #2 was introduced through the anus and [...] 12:24 PM Procedure Code(s): --- Professional --- 71117, Colonoscopy, flexible; diagnostic, including collection of specimen(s) by brushing or washing, when performed (separateprocedure) --- Technical --- 74092, Colonoscopy, flexible; diagnostic, including collection of specimen(s) [...] Iron deficiency anemia, unspecified CPT copyright 2020 [employer]. All rights reserved. The codes documented in this report are preliminary and upon certified coder reviewmay be revised to meet current compliance requirements. Procedure Date: 05/19/2022 12:24:[address] [place] [address] us Ray Bedolla MD GI PROCEDURE ORDERABLES Final Result * (ABNORMAL) Comprehensive metabolic panel (05/09/2022 3:02 PM EDT) SODIUM 138 133 - 146 mmol/L [facility] POTASSIUM 3.9 3.3 - 5.1 mmol/L [facility] CHLORIDE 99 96 - 108 mmol/L [facility] CO2 24 21 - 35 mmol/L [facility] BUN 20(H) 6 - 19 mg/dL [facility] CREATININE 0.90 0.5 - 1.5 mg/dL [facility] GLUCOSE 143(H) 70 - 99 mg/dL [facility] ALBUMIN 4.8 3.9 - 4.8 g/dL [facility] TOTAL PROTEIN 7.3 6.5 - 8.0 g/dL [facility] CALCIUM 9.8 8.4 - 10.3 mg/dL [facility] ALKALINE PHOSPHATASE 94 39 - 117 U/L [facility] TOTAL BILIRUBIN 0.3 0.0 - 1.2 mg/dL [facility] AST 79(H) 0 - 37 U/L [facility] ALT 73(H) 0 - 40 U/L [facility] GLOBULIN 2.5 1 - 4.8 g/dL [facility] EGFR 94 >59 mL/min/1.7 3m2 [facility] Comment:Estimated glomerular filtration rate calculated using the CKD-EPI refit equation. ANION GAP 19 10 - 20 mmol/L [facility] Blood 05/09/2022 3:02 PM EDT 05/09/2022 3:08 PM EDT us Tammy Madrigal PA-C LAB BLOOD ORDERABLES Final Resu lt [address] [address] * TSH (05/09/2022 3:02 PM EDT) TSH 0.90 0.27 - 4.20 uIU/mL [facility] Blood 05/09/2022 3:02 PM EDT 05/09/2022 3:08 PM EDT us Tammy Madrigal PA-C LAB BLOOD ORDERABLES Final Resu lt [address] [address] from Last 3 Months or Most Recently Relevant to Health Maintenance [facility] [address] [place] [address] [facility] [place] [address] [place] [address] HMO WORKERS COMPENSATION [address] [place] [address] Care Teams Mason Liner Relationship Specialty Start Date End Date Ray Bedolla MD [address] [place] [address] [phone] PCP - General Family Medicine 10/22/18 Additional Source Comments The information contained in this document represents components of the legal health record. It is not the complete legal health record.[facility]
== END 2025-05-01 14:41 | disposition home or self-care (01) ==
LOC: HO.HOSX 14:40
DX: Z13.89 Encounter for screening for other disorder (principal)

== ENCOUNTER 2025-05-02 10:27 | Outpatient (REF) | payer OTHER, SELFPAY ==
--- NOTE | ~2025-05-02 | XR_ITS ---
EXAMINATION: XR WRIST, LEFT CLINICAL INFORMATION: M25.532 - Pain in left wrist COMPARISON: 04/11/2025, 04/06/2025. TECHNIQUE: PA, lateral, and oblique views of the left wrist. FINDINGS: There is diffuse osteopenia. There is a healing transverse fracture of the distal radial metaphysis, which in retrospect was extremely subtle on prior examinations. Fracture line has become somewhat sclerotic, also increasing conspicuity. 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 Fracture is essentially nondisplaced. There is increasing periosteal new bone formation dorsally as well. No additional fracture or healing fractures evident. There is dorsal lunate tilt, suggesting possible underlying DISI. Severe inflammatory appearing arthritis is present in the lunocapitate joint. Mild arthritis is present in the first CMC joint and STT joints. There is subtle chondrocalcinosis of the TFCC. There is mild residual dorsal soft tissue swelling. XR/XR wrist LT min 3V IMPRESSION: 1. Healing mildly comminuted distal radial metaphyseal fracture, likely intra-articular, without significant displacement. In retrospect, this fracture was extremely subtle on prior radiographs and has become more conspicuous due to increasing sclerosis of the fracture margins. 2. Inflammatory arthropathy of the carpus. Mild dorsal tilt of the lunate, suggesting DISI. 3. Chondrocalcinosis of the wrist. Electronically signed by: Kory Campoverde MD 05/02/2025 11:11 AM EDT
--- OUTSIDE RECORDS SUMMARY | 2025-05-04 12:36 | XMS_ITS | Patient Health Record ---
Author Organization [facility] Address [address] [place] [address] Care Team Providers Care Bowling Pin Refinisher Name Role Phone Ting Hernandez MD Primary Care Provider UnavailJulio Bronson Unavailable [phone] Reason For Referral No Information Medications Medication SIG (Take, Route, Frequency, Duration) Notes Start Date End Date Status Triamterene-HCTZ 37.5-25 MG Oral; Duration: 90 Active Metoprolol Succinate ER 100 MG Oral; Duration: 90 Active Night Splint AFO - L1930 as directed 05/16/2016 Active Fluarix Quadrivalent 0.5 ML Intramuscular Not-Taking Zostavax 17872 UNT/0.65ML Subcutaneous; Duration: 1 Not-Taking Social History Tobacco use other than smoking: Question Answer Notes Are you an other tobacco user? No Problems Problem Type SNOMED Code ICD Code Onset Dates Problem Status W/U Status Risk Notes Problem Plantar fascial fibromatosis (51608505) Plantar fascial fibromatosis (M72.2) Active confirmed Encounters Encounter Location Date Provider Diagnosis [facility] [address] [place] [address] 10/27/2024 Julio Blandon Plan Of Treatment Pending Test Test Name Order Date X ray : Foot, left 3V 06/09/201710844,[id number] TENDON SHEATH/LIGAMENT 1 07/23/201559133,[id number] TENDON SHEATH/LIGAMENT 1 07/27/2015 Insurance Providers Payer Name Payer Address Payer Phone Subscriber Number Group Number Insured Name Patient Relationship to Insured Coverage Start Date Coverage End Date [facility] [address] [place] [address] [place] [address] [phone] [id number] Mustapha Segura Self - patient is the insured Medical (General) History Medical History History ICD Code Arthritis High blood pressure Chicken pox Surgical History Surgery Date(Month/Year) total left knee replacement 2009 total right knee replacement 2014
--- OUTSIDE RECORDS SUMMARY | 2025-05-04 12:36 | XMS_ITS | Clinical Summary ---
Author Organization [facility] Address [address] [place] [address] Phone Care Team Providers Care Sleep Lab Technologist Name Role Phone Ray Bedolla MD Primary [...] 66 Admit Type: Outpatient Gender: Male Room: [place] [address] Referring MD: Ray Bedolla Exam Type: Colonoscopy [...] monitored continuously. The Olympus adult variable colonoscope [id number] #2 was introduced through the anus and [...] 12:24 PM Procedure Code(s): --- Professional --- 74865, Colonoscopy, flexible; diagnostic, including collection of specimen(s) by brushing or washing, when performed (separateprocedure) --- Technical --- 49151, Colonoscopy, flexible; diagnostic, including collection of specimen(s) [...] Iron deficiency anemia, unspecified CPT copyright 2020 [employer]. All rights reserved. The codes documented in this report are preliminary and upon medical biller coder reviewmay be revised to meet current compliance requirements. Procedure Date: 05/19/2022 12:24:[address] [place] [address] us Ray Bedolla MD GI PROCEDURE ORDERABLES Final Result * (ABNORMAL) Comprehensive metabolic panel (05/09/2022 3:02 PM EDT) SODIUM 138 133 - 146 mmol/L [facility] POTASSIUM 3.9 3.3 - 5.1 mmol/L [facility] CHLORIDE 99 96 - 108 mmol/L [facility] CO2 24 21 - 35 mmol/L [facility] BUN 20(H) 6 - 19 mg/dL [facility] CREATININE 0.90 0.5 - 1.5 mg/dL [facility] GLUCOSE 143(H) 70 - 99 mg/dL [facility] ALBUMIN 4.8 3.9 - 4.8 g/dL [facility] TOTAL PROTEIN 7.3 6.5 - 8.0 g/dL [facility] CALCIUM 9.8 8.4 - 10.3 mg/dL [facility] ALKALINE PHOSPHATASE 94 39 - 117 U/L [facility] TOTAL BILIRUBIN 0.3 0.0 - 1.2 mg/dL [facility] AST 79(H) 0 - 37 U/L [facility] ALT 73(H) 0 - 40 U/L [facility] GLOBULIN 2.5 1 - 4.8 g/dL [facility] EGFR 94 >59 mL/min/1.7 3m2 [facility] Comment:Estimated glomerular filtration rate calculated using the CKD-EPI refit equation. ANION GAP 19 10 - 20 mmol/L [facility] Blood 05/09/2022 3:02 PM EDT 05/09/2022 3:08 PM EDT us Tammy Madrigal PA-C LAB BLOOD ORDERABLES Final Resu lt [address] [address] * TSH (05/09/2022 3:02 PM EDT) TSH 0.90 0.27 - 4.20 uIU/mL [facility] Blood 05/09/2022 3:02 PM EDT 05/09/2022 3:08 PM EDT us Tammy Madrigal PA-C LAB BLOOD ORDERABLES Final Resu lt [address] [address] from Last 3 Months or Most Recently Relevant to Health Maintenance [facility] [address] [place] [address] [facility] [place] [address] [place] [address] HMO WORKERS COMPENSATION [address] [place] [address] Care Teams Sleep Lab Technologist Relationship Specialty Start Date End Date Ray Bedolla MD [address] [place] [phone] PCP - General Family Medicine 10/22/18 Additional Source Comments The information contained in this document represents components of the legal health record. It is not the complete legal health record.[facility]
--- OUTSIDE RECORDS SUMMARY | 2025-05-04 12:36 | XMS_ITS | Encounter Summary ---
Author Organization [facility] Address [address] [place] [address] Phone Care Team Providers Care Pump Room Operator Name Role Phone Ray Bedolla MD Primary Care Provider + Encounter Details Date Type Department Care Team (Late st Contact Info) Description 05/20/2018 Procedure Pass [facility] Endoscopy Admitting Dept Virtual Department [address] [place] [address] Social History Tobacco Use Types Packs/Day Years [...] documented as of this encounter Care Teams Pump Room Operator Relationship Specialty Start Date End Date Ray Bedolla MD [address] [place] [phone] PCP - General Family Medicine 05/03/18 documented as of this encounter Additional Source Comments The information contained in this document represents components of the legal health record. It is not the complete legal health record.[facility]
--- OUTSIDE RECORDS SUMMARY | 2025-05-04 12:36 | XMS_ITS | Encounter Summary ---
Author Organization [facility] Address [address] [facility] [address] [place] [address] Phone Care Team Providers Care Component Engineer Name Role Phone Ray Bedolla MD Primary Care Provider + Encounter Details Date Type Department Care Team (Late st Contact Info) Description 05/20/2022 Procedure Pass [facility], Ct Scan - [address] [address] Social History Tobacco Use Types Packs/Day Years [...] on filedocumented in this encounter Care Teams Component Engineer Relationship Specialty Start Date End Date Ray Bedolla MD [address] [place] [address] PCP - General Family Medicine 05/03/18 documented as of this encounter Additional Source Comments The information contained in this document represents components of the legal health record. It is not the complete legal health record.[facility]
--- OUTSIDE RECORDS SUMMARY | 2025-05-04 12:36 | XMS_ITS | Clinical Summary ---
Author Organization [facility], Address [address] [place] [address] Phone Care Team Providers Care Librarian Assistant Name Role Phone Ray Bedolla MD Primary Care Provider +1- [phone] Allergies No known active allergies Medications zolpidem [...] patient's age to complete this topic Insurance [facility] Care Teams Librarian Assistant Relationship Specialty Start Date End Date Ray Bedolla MD [address] [place] [phone] PCP - General Family Medicine 06/10/22
--- OUTSIDE RECORDS SUMMARY | 2025-05-04 12:36 | XMS_ITS | Encounter Summary ---
Author Organization [facility] Address [address] [place] [address] Phone Care Team Providers Care Liquor Inspector Name Role Phone Ray Bedolla MD Primary Care Provider + Reason for Referral * MRI/CAT Scan - Closed Specialty Diagnoses / Procedures Referred By Contac t Referred To Contact Radiology Diagnoses Adenocarcinoma, gastric cardia Procedures CT Chest CHG DIAGNOSTIC COMPUTED TOMOGRAPHY THORAX W/CONTRAST Rakan Forbes MD Phone: tel: fax: mailto:[email or web address] Referral ID Status Reason Start Date Expiration Date Visits Re quested Visits Authorized [id number] Closed 05/20/2022 07/19/2022 1 1 * MRI/CAT Scan - Closed Specialty Diagnoses / Procedures Referred By Contac t Referred To Contact Radiology Diagnoses Adenocarcinoma, gastric cardia Procedures CT Abdomen Only (No Pelvis) CHG CT SCAN OF ABDOMEN CONTRAST Rakan Forbes MD Phone: tel: fax: mailto:[email or web address] Referral ID Status Reason Start Date Expiration Date Visits Re quested Visits Authorized [id number] Closed 05/20/2022 07/19/2022 1 1 Encounter Details Date Type Department Care Team (Latest Contact Info) Description 05/20/2022 Transcribe Orders [facility] Department [address] [place] [address] Rakan Forbes MD [address] [place] [address] [email or web address] Adenocarcinoma, gastric cardia (Primary Dx) Social [...] small to characterize. us Rakan Forbes MD [facility] CT CHEST [...] cardia documented in this encounter Care Teams Liquor Inspector Relationship Specialty Start Date End Date Ray Bedolla MD [address] [place] [address] PCP - General Family Medicine 05/03/18 documented as of this encounter Additional Source Comments The information contained in this document represents components of the legal health record. It is not the complete legal health record.[facility]
--- OUTSIDE RECORDS SUMMARY | 2025-05-04 12:36 | XMS_ITS | Encounter Summary ---
Author Organization [facility] Address [address] [facility] [address] [place] [address] Phone Care Team Providers Care Labor Trainer Name Role Phone Ray Bedolla MD Primary Care Provider + Encounter Details Date Type Department Care Team (Late st Contact Info) Description 05/20/2022 Procedure Pass [facility], Ct Scan - [address] [address] Social History Tobacco Use Types Packs/Day Years [...] on filedocumented in this encounter Care Teams Labor Trainer Relationship Specialty Start Date End Date Ray Bedolla MD [address] [place] [address] PCP - General Family Medicine 05/03/18 documented as of this encounter Additional Source Comments The information contained in this document represents components of the legal health record. It is not the complete legal health record.[facility]
--- OUTSIDE RECORDS SUMMARY | 2025-05-04 12:37 | XMS_ITS | Encounter Summary ---
Author Organization [facility] Address [address] [place] [address] Phone Care Team Providers Care Pipe Organ Builder Name Role Phone Ray Bedolla MD Primary Care Provider + Encounter Details Date Type Department Care Team (Latest Contact Info) Description 05/16/2022 Transcribe Orders Virtual Department [address] [place] [address] Tammy Madrigal PA-C [address] [place] [address] [email or web address] Elevated LFTs (Primary Dx) Social History Tobacco [...] chemistry documented in this encounter Care Teams Pipe Organ Builder Relationship Specialty Start Date End Date Ray Bedolla MD [address] [place] [address] PCP - General Family Medicine 05/03/18 documented as of this encounter Additional Source Comments The information contained in this document represents components of the legal health record. It is not the complete legal health record.[facility]
--- OUTSIDE RECORDS SUMMARY | 2025-05-04 12:37 | XMS_ITS | Encounter Summary ---
Author Organization [facility] Address [address] [place] [address] Phone Care Team Providers Care Icer Air Conditioning Name Role Phone Ray Bedolla MD Primary Care Provider + Encounter Details Date Type Department Care Team (Late st Contact Info) Description 05/19/2022 Procedure Pass [facility] Admitting Dept Virtual Department [address] [place] [address] Social History Tobacco Use Types Packs/Day Years [...] on filedocumented in this encounter Care Teams Icer Air Conditioning Relationship Specialty Start Date End Date Ray Bedolla MD [address] [place] [address] PCP - General Family Medicine 05/03/18 documented as of this encounter Additional Source Comments The information contained in this document represents components of the legal health record. It is not the complete legal health record.[facility]
== END 2025-05-02 10:28 | disposition home or self-care (01) ==
LOC: HO.HOSX 10:27
DX: S52.502D Unspecified fracture of the lower end of left radius, subsequent encounter for closed fracture with routine healing (principal); M25.532 Pain in left wrist
CPT/HCPCS: 29075; 73110; 99212

== ENCOUNTER 2025-05-02 10:41 | Outpatient (AMB) | payer OTHER, SELFPAY ==
--- NOTE | 2025-05-02 10:46 | A.OFFVIS_ITS ---
Vital Signs 05/02/25 10:47 Height 6 ft Weight 199 lb BMI 27.0 Intake Visit Reasons: OV-LT Distal Radius Fx, DOI 04/05/25 Intake Note: Mustapha is a 70 year old right hand dominant male who presents today for follow up status post Left Distal Radius Fracture from a work-related injury, DOI: 04/05/25. At his last visit, 04/17/25, with BAIRON Munoz, patient was placed in a short arm cast. He was advised to maintain a 2lb weight limit. Today, patient reports he continues having pain on the dorsal aspect of his left hand. He has been taking Aleve and Tylenol PRN with relief. Patient mentions he has an area of redness on the volar aspect of the left forearm caused by the cast material rubbing on his skin. Allergies No Known Allergies Allergy (Verified 05/09/25 11:13) HPI HPI OV-LT Distal Radius Fx, DOI 04/05/25: Details: Mustapha is a 70 year old right hand dominant male who presents today for follow up status post Left Distal Radius Fracture from a work-related injury, DOI: 04/05/25. At his last visit, 04/17/25, with BAIRON Munoz, patient was placed in a short arm cast. He was advised to maintain a 2lb weight limit. Today, patient reports he continues having pain on the dorsal aspect of his left hand. He has been taking Aleve and Tylenol PRN with relief. Patient mentions he has an area of redness on the volar aspect of the left forearm caused by the cast material rubbing on his skin. 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 Neuro: Normal sensation of the tips of all digits of the left hand at this time Vascular: Cap refill brisk Pain: Noted volar tenderness to palpation of the left distal radius, particularly noted over the radial styloid Some discomfort with attempted range of motion of the left wrist ROM: Patient is able to make a closed fist and extend all digits of the left hand fully Patient is able to forward flex the left wrist to approximately 30 degrees and extend to 20 degrees Skin: No lacerations or abrasions. General: Ecchymosis and edema noted of both the dorsal and volar aspects of the left wrist over the distal radius have resolved Psych: Appears grossly normal Affect normal Attitude cooperative Office Procedures Casting/Splints 93225-Gpwp/Wrist Cast Application Procedure code (CPT) selection complete Assessment & Plan Assessment & Plan (1) Fracture of left distal radius: Code(s): S52.502A - Unspecified fracture of the lower end of left radius, initial encounter for closed fracture Category: Medical Plan: Patient was placed in a short-arm cast in the office today due to ongoing pain concerns. He will refrain from any lifting pushing pulling or carrying with the left hand. He will return next week for cast removal and repeat x-rays for reassessment, sooner with any acute concerns Orders: Orders XR wrist LT min 3V 05/02/25 M25.532 - Pain in left wrist Coding Level of Care Code Global (45530) Diagnoses Fracture of left distal radius S52.502A CPT Codes Casting - CPT: 37514-Dtli/Wrist Cast Application ([id number])
[2025-05-02 10:47] VITALS: BMI 27.0
--- OUTSIDE RECORDS SUMMARY | 2025-05-02 12:54 | XMS_ITS | Clinical Summary ---
Author Organization [facility], Address [address] [place] [address] Phone Care Team Providers Care Data Input Clerk Name Role Phone Ray Bedolla MD Primary Care Provider [phone]- [phone] Allergies No known active allergies Medications zolpidem [...] patient's age to complete this topic Insurance [facility] Care Teams Data Input Clerk Relationship Specialty Start Date End Date Ray Bedolla MD [address] [place] [phone] PCP - General Family Medicine 06/10/22
--- OUTSIDE RECORDS SUMMARY | 2025-05-02 12:54 | XMS_ITS | Patient Health Record ---
Author Organization [facility] Address [address] [place] [address] Care Team Providers Care Automatic Thread Winder Name Role Phone David REYES Ting Primary Care Provider Julio Barrera Unavailable [phone] Reason For Referral No Information Medications Medication SIG (Take, Route, Frequency, Duration) Notes Start Date End Date Status Triamterene-HCTZ 37.5-25 MG Oral; Duration: 90 Active Metoprolol Succinate ER 100 MG Oral; Duration: 90 Active Night Splint AFO - L1930 as directed 05/16/2016 Active Fluarix Quadrivalent 0.5 ML Intramuscular Not-Taking Zostavax 93733 UNT/0.65ML Subcutaneous; Duration: 1 Not-Taking Social History Tobacco use other than smoking: Question Answer Notes Are you an other tobacco user? No Problems Problem Type SNOMED Code ICD Code Onset Dates Problem Status W/U Status Risk Notes Problem Plantar fascial fibromatosis (99044943) Plantar fascial fibromatosis (M72.2) Active confirmed Encounters Encounter Location Date Provider Diagnosis [facility] [address] [place] [address] 05/02/2024 Julio Blandon [facility] [address] [place] [address] 10/27/2024 Julio Blandon Plan Of Treatment Pending Test Test Name Order Date X ray : Foot, left 3V 06/09/2017 [id number] TENDON SHEATH/LIGAMENT 1 07/23/2015 [id number] TENDON SHEATH/LIGAMENT 1 07/27/2015 Insurance Providers Payer Name Payer Address Payer Phone Subscriber Number Group Number Insured Name Patient Relationship to Insured Coverage Start Date Coverage End Date [facility] [address] [facility] [place] [address] [id number] Mustapha Segura Self - patient is the insured Medical (General) History Medical History History ICD Code Arthritis High blood pressure Chicken pox Surgical History Surgery Date(Month/Year) total left knee replacement 2009 total right knee replacement 2014
--- OUTSIDE RECORDS SUMMARY | 2025-05-02 12:54 | XMS_ITS | Data Portability ---
Author Organization [place] [facility] Address [address] [place] [address] [address] Care Team Providers Care Scarfing Machine Operator Name Role Phone AMATY SARAH Primary Care Provider Assessment Encounter Date Assessment Date Assessment LastModified by Organization Details LastModified Time 08/19/2024 08/19/2024 A pituitary lesion has been identified on imaging. Patient has met with neurosurgery and they have requested assistance with surgical approach. This will be obtained using endoscopic instruments through the nasal passage to open the sphenoid sinus. Beyond of the back wall of the sphenoid sinus is the pituitary gland. Risks of this surgical approach include epistaxis, change in the sense of smell that can be temporary or permanent, scar tissue, infection of the sinuses, CSF leak, injury to large blood vessels. After the surgery, patient will follow-up in approximately 1 month for initial endoscopic debridements. I would like him to begin nasal saline several times daily shortly after they leave the hospital. [email or web address] Not available 08/19/2024 12:51:51 Plan of Treatment Reminders Order Date Submit Date Provider Last Modified By Organization Details Last Modified Time Details Appointments None recorded. Lab None recorded. Referral None recorded. Procedures None recorded. Surgeries neuroendos copy, intracrani al; with excision of pituitary tumor (SURG) 2024 025 9 Not available 15:06:49 Imaging None recorded. Medication Orders None recorded. Patient TargetsNo targets recorded. Patient InstructionsNo instructions recorded. Reason for Referral None Reported. Results Created Date Observation Date Name Description Value Unit Range Abnormal Flag Note LastModifiedBy Organization Detail LastModifiedTime 07/28/1907/02/2024 MRI, brain + pitui tary, w/o contr ast No observ ation record ed. [email or web address] Not Available 07/13 14:04:19 Result Notes None recorded. 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 Procedures Surgical History Date Name Laterality Status Provider Name and Address Organization Details Recorded Time 08/19/2024 NasalEndos copy_DP completed ALEJANDRA CHASE MD 100 [facility] [address], [place], [address], [facility] 08/19/2024 14:15:20 Imaging Results None recorded. Procedure Notes None recorded. Medical Equipment None Reported. Allergies No known drug allergies Medications Name Sig Start Date Stop Date Status Note LastModified by Organization Details LastModified Time amoxicillin 500 mg capsule 08/19 completed Not Available Not Available Not Available prednisone 10 mg tablet active Not Available Not Available Not Available citalopram 10 mg tablet active Not Available Not Available Not Available prednisone 20 mg tablet active Not Available Not Available Not Available prednisone 5 mg tablet active Not Available Not Available Not Available triamcinolo ne acetonide 0.1 % topical cream active Not Available Not Available Not Available levothyroxi ne 75 mcg tablet active Not Available Not Available Not Available famotidine 20 mg tablet active Not Available Not Available Not Available benzonatate 100 mg capsule TAKE 2 CAPSULES BY MOUTH 3 TIMES A DAY NEEDED FOR COUGH FOR 7 DAYS 08/19 completed Not Available Not Available Not Available zafirlukast 20 mg tablet active Not Available Not Available Not Available ibuprofen 600 mg tablet active Not Available Not Available Not Available fluticasone propionate 50 mcg/actuati on nasal spray,suspe nsion active Not Available Not Available Not Available amoxicillin 875 mg-potassiu m clavulanate 125 mg tablet 08/19 completed Not Available Not Available Not Available Ventolin HFA 90 mcg/actuati on aerosol inhaler active Not Available Not Available Not Available chlorhexidi ne gluconate 0.12 % mouthwash active Not Available Not Available No t Available Vitals Date Recorded Body height Body mass index (BMI) Body weight Provider Name and Address Organization Details Last Updated DateTime 08/19/2024 182.88 cm 29 kg/m2 59775.77 g Shila Vargas [place] [facility] 08/19/2024 14:04:04 Social History None recorded. Functional Status None recorded. Mental Status None recorded. Family History Nothing Reported. Medical History No medical history recorded. Past Encounters Encounter ID Performer Location Encounter Start Date Encounter Closed Date Diagnosis/Indication Diagnosis SNOMED-CT Code Diagnosis ICD10 Code Diagnosis IMO Codes Diagnosis Note [id number] ALEJANDRA CHASE MD [facility] [address] [address] 08/19/2024 13:41:14 08/19/2024 16:29:44 Neoplasm of pituitary gland 053561416 D49.[address] Payne. He is still in process of workup and surgery may be deferred if sx are minimal. nasal endoscopy today was benign with septum to left Health Concerns Section Related Observation LastModified by Organization Detai ls LastModified Time None Recorded Concern Status LastModified by Organization Details LastModified Time None Recorded Advance Directives Directive None Recorded Payers Insurance Date Sequence Insurance Name Policy Number Policy Rob Covered Member ID Rob Member ID Guarantor Name 08/19/2024 1 [facility] [id number] 3 Mustapha Segura [id number] Mustapha Segura Notes Date Note Type Note Provider Name and Address Organization Details Recorded Time text/html ROS as noted in the HPI pituitary lesionreferral from Dr Looney thyroid replacementawaiting referral to Dr Max for eye examhx of esophageal ca [address] Christianson 07/02/20[facility] macroad[facility]. 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 No extension into cavernous sinus. 27 x 21 x 23 mm. Progression since 2021 ALEJANDRA CHASE MD [address] [place] [address], [place], [address], [place] [facility] 08/19/2024 14:24:11
== END 2025-05-02 11:45 | disposition home or self-care (01) ==
LOC: HO.HOS 10:43
PROVIDERS: PCP Family Medicine
DX: S52.502A Unspecified fracture of the lower end of left radius, initial encounter for closed fracture (principal)
CPT/HCPCS: 29075; 99213

== ENCOUNTER → 2025-05-02 10:46 | Outpatient (BNV) | payer OTHER, SELFPAY | PROVIDERS: Visit Provider Radiology Diagnostic Radiology | DX: S52.502D Unspecified fracture of the lower end of left radius, subsequent encounter for closed fracture with routine healing (principal); M19.032 Primary osteoarthritis, left wrist; M11.232 Other chondrocalcinosis, left wrist | CPT/HCPCS: 73110 ==

== ENCOUNTER 2025-05-09 08:18 | Outpatient (REF) | payer OTHER, SELFPAY ==
--- NOTE | ~2025-05-09 | XR_ITS ---
EXAMINATION: XR WRIST 3 OR MORE VIEWS LEFT HISTORY: M25.532 - Pain in left wrist COMPARISON: Comparison is made with the prior examination dated 05/02/2025. FINDINGS: Three views of the left wrist are submitted. The bones are osteopenic. Again seen is a fracture of the distal radial metaphysis. The fracture line remains visible, although there is slight increased sclerosis, compatible with healing. Again seen is severe degenerative change of the radiocarpal joint. The soft tissues are unremarkable. XR/XR wrist LT min 3V IMPRESSION: Osteopenia. Healing fracture of the distal radial metaphysis. Electronically signed by: Hardik Patricia MD 05/09/2025 11:11 AM EDT
--- OUTSIDE RECORDS SUMMARY | 2025-05-09 08:51 | XMS_ITS | Encounter Summary ---
Author Organization [facility] Address [address] [facility] [address] [place] [address] Phone Care Team Providers Care Rcp Name Role Phone Ray Bedolla MD Primary Care Provider + Encounter Details Date Type Department Care Team (Late st Contact Info) Description 05/20/[address] [facility], Ct Scan - [address] [address] Social History Tobacco Use Types Packs/Day Years [...] on filedocumented in this encounter Care Teams Rcp Relationship Specialty Start Date End Date Ray Bedolla MD [address] [place] [address] PCP - General Family Medicine 05/03/18 documented as of this encounter Additional Source Comments The information contained in this document represents components of the legal health record. It is not the complete legal health record.[facility]
--- OUTSIDE RECORDS SUMMARY | 2025-05-09 08:51 | XMS_ITS | Encounter Summary ---
Author Organization [facility] Address [address] [place] [address] Phone Care Team Providers Care Geothermal Hvac Technician Name Role Phone Ray Bedolla MD Primary Care Provider + Reason for Referral * MRI/CAT Scan - Closed Specialty Diagnoses / Procedures Referred By Contac t Referred To Contact Radiology Diagnoses Adenocarcinoma, gastric cardia Procedures CT Chest CHG DIAGNOSTIC COMPUTED TOMOGRAPHY THORAX W/CONTRAST Rakan Forbes MD Phone: tel: fax: mailto:[email or web address] Referral ID Status Reason Start Date Expiration Date Visits Re quested Visits Authorized [id number] Closed 05/20/2022 07/19/2022 1 1 * MRI/CAT Scan - Closed Specialty Diagnoses / Procedures Referred By Contac t Referred To Contact Radiology Diagnoses Adenocarcinoma, gastric cardia Procedures CT Abdomen Only (No Pelvis) CHG CT SCAN OF ABDOMEN CONTRAST Rakan Forbes MD Phone: tel: fax: mailto:[email or web address] Referral ID Status Reason Start Date Expiration Date Visits Re quested Visits Authorized [id number] Closed 05/20/2022 07/19/2022 1 1 Encounter Details Date Type Department Care Team (Latest Contact Info) Description 05/20/2022 Transcribe Orders [facility] Department [address] [place] [address] Rakan Forbes MD [address] [place] [address] [email or web address] Adenocarcinoma, gastric cardia (Primary Dx) Social [...] small to characterize. us Rakan Forbes MD [facility] [place]ST Final Result [...] cardia documented in this encounter Care Teams Geothermal Hvac Technician Relationship Specialty Start Date End Date Ray Bedolla MD [address] [place] [address] PCP - General Family Medicine 05/03/18 documented as of this encounter Additional Source Comments The information contained in this document represents components of the legal health record. It is not the complete legal health record.[facility]
--- OUTSIDE RECORDS SUMMARY | 2025-05-09 08:51 | XMS_ITS | Patient Health Record ---
Author Organization [facility] Address [address] [place] [address] Care Team Providers Care Post Graduate Internship Name Role Phone Ting Hernandez MD Primary Care Provider UnavailJulio Bronson Unavailable [phone] Reason For Referral No Information Medications Medication SIG (Take, Route, Frequency, Duration) Notes Start Date End Date Status Triamterene-HCTZ 37.5-25 MG Oral; Duration: 90 Active Metoprolol Succinate ER 100 MG Oral; Duration: 90 Active Night Splint AFO - L1930 as directed 05/16/2016 Active Fluarix Quadrivalent 0.5 ML Intramuscular Not-Taking Zostavax 99453 UNT/0.65ML Subcutaneous; Duration: 1 Not-Taking Social History Tobacco use other than smoking: Question Answer Notes Are you an other tobacco user? No Problems Problem Type SNOMED Code ICD Code Onset Dates Problem Status W/U Status Risk Notes Problem Plantar fascial fibromatosis (11250514) Plantar fascial fibromatosis (M72.2) Active confirmed Encounters Encounter Location Date Provider Diagnosis [facility] [address] [place] [address] 10/27/2024 Julio Blandon Plan Of Treatment Pending Test Test Name Order Date X ray : Foot, left 3V 06/09/201726246,[id number] TENDON SHEATH/LIGAMENT 1 07/23/[id number] TENDON SHEATH/LIGAMENT 1 07/27/2015 Insurance Providers Payer Name Payer Address Payer Phone Subscriber Number Group Number Insured Name Patient Relationship to Insured Coverage Start Date Coverage End Date [facility] [address] [place] [address], [place] [address] [id number] Mustapha Segura Self - patient is the insured Medical (General) History Medical History History ICD Code Arthritis High blood pressure Chicken pox Surgical History Surgery Date(Month/Year) total left knee replacement 2009 total right knee replacement 2014
--- OUTSIDE RECORDS SUMMARY | 2025-05-09 08:51 | XMS_ITS | Encounter Summary ---
Author Organization [facility] Address [address] [facility] [address] [place] [address] Phone Care Team Providers Care Manager Corporate Name Role Phone Ray Bedolla MD Primary Care Provider + Encounter Details Date Type Department Care Team (Late st Contact Info) Description 05/20/2022 Procedure Pass [facility], Ct Scan - [address] [address] Social History Tobacco Use Types Packs/Day Years [...] on filedocumented in this encounter Care Teams Manager Corporate Relationship Specialty Start Date End Date Ray Bedolla MD [address] [place] [address] PCP - General Family Medicine 05/03/18 documented as of this encounter Additional Source Comments The information contained in this document represents components of the legal health record. It is not the complete legal health record.[facility]
--- OUTSIDE RECORDS SUMMARY | 2025-05-09 08:52 | XMS_ITS | Encounter Summary ---
Author Organization [facility] Address [address] [place] [address] Phone Care Team Providers Care Inside Sales Agent Name Role Phone Ray Bedolla MD Primary Care Provider + Encounter Details Date Type Department Care Team (Late st Contact Info) Description 05/19/2022 Procedure Pass [facility] Admitting Dept Virtual Department [address] [place] [address] Social History Tobacco Use Types Packs/Day Years [...] on filedocumented in this encounter Care Teams Inside Sales Agent Relationship Specialty Start Date End Date Ray Bedolla MD [address] [place] [address] PCP - General Family Medicine 05/03/18 documented as of this encounter Additional Source Comments The information contained in this document represents components of the legal health record. It is not the complete legal health record.[facility]
--- OUTSIDE RECORDS SUMMARY | 2025-05-09 08:52 | XMS_ITS | Encounter Summary ---
Author Organization [facility] Address [address] [place] [address] Phone Care Team Providers Care Marker Machine Name Role Phone Ray Bedolla MD Primary Care Provider + Encounter Details Date Type Department Care Team (Late st Contact Info) Description 05/20/2018 Procedure Pass [facility] Admitting Dept Virtual Department [address] [place] [address] Social History Tobacco Use Types Packs/Day Years [...] documented as of this encounter Care Teams Marker Machine Relationship Specialty Start Date End Date Ray Bedolla MD [address] [place] [address] PCP - General Family Medicine 05/03/18 documented as of this encounter Additional Source Comments The information contained in this document represents components of the legal health record. It is not the complete legal health record.[facility]
--- OUTSIDE RECORDS SUMMARY | 2025-05-09 08:52 | XMS_ITS | Encounter Summary ---
Author Organization [facility] Address [address] [place] [address] Phone Care Team Providers Care Marine Engineering Teacher Name Role Phone Ray Bedolla MD Primary Care Provider + Encounter Details Date Type Department Care Team (Latest Contact Info) Description 05/16/2022 Transcribe Orders Virtual Department [address] [place] [address] Tammy Madrigal PA-C [address] [place] [address] [email or web address] Elevated LFTs (Primary Dx) Social History Tobacco [...] again demonstrated in the right kidney without mekih hydronephrosis. CT-demonstrated intrarenal calculi not assessed. Procedure [...] chemistry documented in this encounter Care Teams Marine Engineering Teacher Relationship Specialty Start Date End Date Rya Bedolla MD [address] [place] [address] PCP - General Family Medicine 05/03/18 documented as of this encounter Additional Source Comments The information contained in this document represents components of the legal health record. It is not the complete legal health record.[facility]
--- OUTSIDE RECORDS SUMMARY | 2025-05-09 08:52 | XMS_ITS | Clinical Summary ---
Author Organization [facility] Address [address] [place] [address] Phone Care Team Providers Care Museum Service Scheduler Name Role Phone Ray Bedolla MD Primary [...] 67 Admit Type: Outpatient Gender: Male Room: [place] [address] Referring MD: Ray Bedolla Exam Type: Colonoscopy [...] monitored continuously. The Olympus adult variable colonoscope [id number] #2 was introduced through the anus and [...] 12:24 PM Procedure Code(s): --- Professional --- 95283, Colonoscopy, flexible; diagnostic, including collection of specimen(s) by brushing or washing, when performed (separateprocedure) --- Technical --- 62238, Colonoscopy, flexible; diagnostic, including collection of specimen(s) [...] Iron deficiency anemia, unspecified CPT copyright 2020 [employer]. All rights reserved. The codes documented in this report are preliminary and upon homeopathic doctor reviewmay be revised to meet current compliance requirements. Procedure Date: 05/19/2022 12:24:[address] [place] [address] us Ray Bedolla MD GI PROCEDURE ORDERABLES Final Result * (ABNORMAL) Comprehensive metabolic panel (05/09/2022 3:02 PM EDT) SODIUM 138 133 - 146 mmol/L [facility] POTASSIUM 3.9 3.3 - 5.1 mmol/L [facility] CHLORIDE 99 96 - 108 mmol/L [facility] CO2 24 21 - 35 mmol/L [facility] BUN 20(H) 6 - 19 mg/dL [facility] CREATININE 0.90 0.5 - 1.5 mg/dL [facility] GLUCOSE 143(H) 70 - 99 mg/dL [facility] ALBUMIN 4.8 3.9 - 4.8 g/dL [facility] TOTAL PROTEIN 7.3 6.5 - 8.0 g/dL [facility] CALCIUM 9.8 8.4 - 10.3 mg/dL [facility] ALKALINE PHOSPHATASE 94 39 - 117 U/L [facility] TOTAL BILIRUBIN 0.3 0.0 - 1.2 mg/dL [facility] AST 79(H) 0 - 37 U/L [facility] ALT 73(H) 0 - 40 U/L [facility] GLOBULIN 2.5 1 - 4.8 g/dL [facility] EGFR 94 >59 mL/min/1.7 3m2 [facility] Comment:Estimated glomerular filtration rate calculated using the CKD-EPI refit equation. ANION GAP 19 10 - 20 mmol/L [facility] Blood 05/09/2022 3:02 PM EDT 05/09/2022 3:08 PM EDT us Tammy Madrigal PA-C LAB BLOOD ORDERABLES Final Resu lt [address] [address] * TSH (05/09/2022 3:02 PM EDT) TSH 0.90 0.27 - 4.20 uIU/mL [facility] Blood 05/09/2022 3:02 PM EDT 05/09/2022 3:08 PM EDT us Tammy Madrigal PA-C LAB BLOOD ORDERABLES Final Resu lt [address] [address] from Last 3 Months or Most Recently Relevant to Health Maintenance Insurance [facility] [address] [place] [id number] [facility] [address] [place] [address] [employer]MO [employer] [address] [place] [address] Care Teams Museum Service Scheduler Relationship Specialty Start Date End Date Ray Bedolla MD [address] [place] [phone] PCP - General Family Medicine 10/22/18 Additional Source Comments The information contained in this document represents components of the legal health record. It is not the complete legal health record.[facility]
--- OUTSIDE RECORDS SUMMARY | 2025-05-09 08:52 | XMS_ITS | Clinical Summary ---
Author Organization [facility], Address [address] [place] [place] [address] Phone Care Team Providers Care Computer Peripheral Equipment Operator Name Role Phone Ray Bedolla MD Primary Care Provider +1- [phone] Allergies No known active allergies Medications zolpidem [...] patient's age to complete this topic Insurance [facility] Care Teams Computer Peripheral Equipment Operator Relationship Specialty Start Date End Date Ray Bedolla MD [address] [place] [phone] PCP - General Family Medicine 06/10/22
== END 2025-05-09 08:19 | disposition home or self-care (01) ==
LOC: HO.HOSX 08:18
DX: S52.502D Unspecified fracture of the lower end of left radius, subsequent encounter for closed fracture with routine healing (principal); X58.XXXD Exposure to other specified factors, subsequent encounter
CPT/HCPCS: 73110; 99212

== ENCOUNTER 2025-05-09 10:35 | Outpatient (AMB) | payer OTHER, SELFPAY ==
--- NOTE | 2025-05-09 11:12 | A.OFFVIS_ITS ---
Vital Signs 05/09/25 11:13 Height 6 ft Weight 199 lb BMI 27.0 Intake Visit Reasons: OV-LT Distal Radius Fx, DOI 04/05/25-w/xr cast off Intake Note: Mustapha is a 70 year old right hand dominant male who presents today for follow up status post Left Distal Radius Fracture from a work-related injury, DOI: 04/05/25. Patient complains of pain in the dorsal aspect of the left wrist. He is taking Aleve with some relief. Allergies No Known Allergies Allergy (Verified 05/09/25 11:13) HPI HPI OV-LT Distal Radius Fx, DOI 04/05/25-w/xr cast off: Details: Mustapha is a 70 year old right hand dominant male who presents today for follow up status post Left Distal Radius Fracture from a work-related injury, DOI: 04/05/25. Patient complains of pain in the dorsal aspect of the left wrist, but reports that this pain has improved very significantly since previous evaluation.. He is taking Aleve with some relief. 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 Neuro: Normal sensation of the tips of all digits of the left hand at this time Vascular: Cap refill brisk Pain: Very minimal tenderness to palpation of the left distal radius, only noted over the radial styloid Some discomfort with attempted range of motion of the left wrist ROM: Patient is able to make a closed fist and extend all digits of the left hand fully Patient is able to forward flex the left wrist to approximately 30 degrees and extend to 20 degrees Skin: No lacerations or abrasions. General: Ecchymosis and edema noted of both the dorsal and volar aspects of the left wrist over the distal radius have resolved Psych: Appears grossly normal Affect normal Attitude cooperative Results Reviewed Results Reviewed: X-rays obtained in the office today and independently reviewed by me, Inder Schwartz PA-C, demonstrate minimally displaced fracture of the left distal radius with evidence of interval bone healing. Assessment & Plan Assessment & Plan (1) Fracture of left distal radius: Code(s): S52.502A - Unspecified fracture of the lower end of left radius, initial encounter for closed fracture Category: Medical Plan 1. Left distal radius fracture Date of injury 04/05/2025 Patient appears to be recovering well from his injury Patient is educated about the typical recovery course At this time, patient is provided with a Velcro wrist splint to wear with daytime activities Patient is also referred to OT for range of motion of the left wrist and hand Patient should remove the splint at rest to work on range of motion prior to seeing OT Patient should be out of work for 2 weeks, may return with a 2 lb weight limit at that point, if this can not be accommodated should be out of work until follow-up Patient understands this and is amenable to this plan Follow-up in 4 weeks with repeat x-rays for reassessment, sooner with any acute concerns Orders: Orders XR wrist LT min 3V Today M25.532 - Pain in left wrist OT Evaluation and Treatment Today S52.502A - Unspecified fracture of the lower end of left radius, initial encounter for closed fracture Coding Level of Care Code Global (14104) Diagnoses Fracture of left distal radius S52.502A
[2025-05-09 11:13] VITALS: BMI 27.0
== END 2025-05-09 11:45 | disposition home or self-care (01) ==
LOC: HO.HOS 10:35
PROVIDERS: PCP Family Medicine
DX: S52.502A Unspecified fracture of the lower end of left radius, initial encounter for closed fracture (principal)
CPT/HCPCS: 99024

== ENCOUNTER → 2025-05-09 10:38 | Outpatient (BNV) | payer OTHER, SELFPAY | PROVIDERS: Visit Provider Radiology Diagnostic Radiology | DX: M85.842 Other specified disorders of bone density and structure, left hand (principal); S52.502A Unspecified fracture of the lower end of left radius, initial encounter for closed fracture | CPT/HCPCS: 73110 ==

== ENCOUNTER 2025-06-01 09:35 | Observation (INO) | payer OTHER, SELFPAY ==
[2025-06-01] VITALS (9 sets, daily range): BP systolic 95–169; BP diastolic 51–88; PULSE 48–72; RESP 14–20; TEMP 36.4–36.6; O2SAT 94–100; BMI 20.3
--- NOTE | 2025-06-01 09:51 | ECG_ITS ---
Test Reason : SYNCOPE Blood Pressure : */* mmHG Vent. Rate : 60 BPM Atrial Rate : 60 BPM P-R Int : 174 ms QRS Dur : 160 ms QT Int : 504 ms P-R-T Axes : * 46 -7 degrees QTcB Int : 504 ms Normal sinus rhythm Right bundle branch block Possible Inferior infarct , age undetermined Abnormal ECG No previous ECGs available Referred By: Generic ED Physician Electronically Signed By: YOEL HANKS
--- NOTE | 2025-06-01 09:54 | PC.NURSE ---
coming from outpatient response for syncopal episode. denies head strike/thinners. has been having dizzy spells intermittently for a couple weeks . new bp medication - since has been dizzy. denies ever experiencing this before. denies pain/sob. has power port in place. placed on monitoring specialist, call stack within reach. no distress noted, watching tv quietly in room.
--- NOTE | 2025-06-01 10:34 | PC.NURSE ---
power port accessed, labs obtained
[2025-06-01 10:40] LABS: MANUAL DIFF FLAG NO
[2025-06-01 10:44] LABS: Hematocrit 37.3 % (42.0-52.0); Hemoglobin 11.7 g/dl (14.0-18.0); Imm Gran Abs Auto 0.04 X10*3/uL (0.00-0.03); Imm Gran Pct Auto 0.4 % (0.0-0.4); Lymphocytes Absolute Auto 0.5 X10*3/uL (1.2-4.9); Mean Corpuscular HGB Conc 31.4 g/dl (31.0-36.0); Mean Corpuscular Hemoglobin 24.8 pg (27.0-33.0); Mean Corpuscular Volume 79.0 fL (80.0-98.0); NRBC Abs Auto 0.000 X10*3/uL (0.0-0.012); NRBC Pct Auto 0.0 /100WBC (0.0-0.2); Platelet Count 174 X10*3/uL (160-400); Red Blood Count 4.72 X10*6/uL (4.60-5.80); White Blood Count 9.6 X10*3/uL (4.8-10.8)
[2025-06-01 11:00] LABS: Alanine Aminotransferase 34 U/L (0-40); Albumin Level 4.1 g/dL (3.5-5.0); Alkaline Phosphatase 105 U/L (39-117); Anion Gap 12 (12-20); Aspartate Amino Transferase 33 U/L (5-37); Blood Urea Nitrogen 19 mg/dL (9-16); Calcium 9.1 mg/dL (8.4-10.2); Carbon Dioxide 23 mmol/L (22-29); Chloride 109 mmol/L (96-108); Creatinine Clr Calc Pharmacy 75.3; Estimated Glomerular Filt Rate > 60; Potassium 3.8 mmol/L (3.3-5.1); Sodium 140 mmol/L (135-145); Total Protein 6.4 g/dL (6.5-8.0)
[2025-06-01 11:08] LABS: Troponin-I High Sensitivity 2.9 ng/L (<3.5-35.0)
--- NOTE | 2025-06-01 11:21 | ED.SYNCOPE ---
HPI - Syncope General Chief Complaint: Dizziness Stated Complaint: Passed out- outpatient response Time Seen by Provider: 06/01/25 11:14 Source: patient and family Mode of arrival: wheelchair Limitations: no limitations History of Present Illness ED Provider: DR. Jennings HPI narrative: A 70-year-old male brought in to the emergency department from occupational therapy department after having physical therapy session on his left wrist, patient did not eat breakfast today and felt dizzy with lightheadedness and overall generalized weakness and fatigued while he is getting the physical therapy patient stated that he has never completely loss of consciousness but felt lightheadedness, with no pain during the PT session, there was no CP, no SOB, no abdominal pain, no spinning feeling, no weakness, no numbness. Patient now is back to his baseline stated that he started a new blood pressure medication recently been getting intermittent feeling of lightheadedness since he started the amlodipine. Related Data Home Medications ?Medication ?Instructions ?Recorded ?Confirmed CPAP 04/11/25 albuterol sulfate 90 mcg/actuation inhalation 04/11/25 aerosol inhaler citalopram 10 mg tablet 10 mg PO DAILY 04/11/25 famotidine 20 mg tablet 20 mg PO BID 04/11/25 fluticasone propionate 50 spray intranasal 04/11/25 mcg/actuation nasal spray,suspension levothyroxine 75 mcg tablet 75 mcg PO DAILY 04/11/25 prednisone 5 mg tablet 5 mg PO DAILY 04/11/25 zafirlukast 20 mg tablet 20 mg PO BID 04/11/25 Allergies Allergy/AdvReac Type Severity Reaction Status Date / Time No Known Allergies Allergy Verified 06/01/25 09:47 Review of Systems Review of Systems: All other systems are reviewed and are negative Constitutional: Reports as per HPI and Reports no additional constitutional complaints Eyes: Reports as per HPI and Reports no additional eye complaints Reports system reviewed and no additional complaints, except as documented Cardiovascular: Reports as per HPI and Reports no additional cardiovascular complaints Respiratory: Reports as per HPI and Reports no additional respiratory complaints Gastrointestinal: Reports as per HPI and Reports no additional gastrointestinal complaints Genitourinary: Reports no additional female genitourinary complaints Musculoskeletal: Reports no additional musculoskeletal complaints Skin/Breast: Reports system reviewed and no additional complaints, except as docu Psychiatric: Reports no additional psychiatric complaints Endocrine: Reports no additional endocrine complaints Hematologic/Lymphatic: Reports no additional hematologic/lymphatic complaints Allergic/Immunologic: Reports no additional allergic/immunologic complaints Reports system reviewed and no additional complaints, except as documented and Reports Abnormal speech present [facility] Past Medical History Medical History History of esophageal cancer Surgical History History of knee surgery Social History Social History Alcohol intake: current Alcohol intake frequency: holidays/special occasions only Patient Tobacco Use Status: Former Tobacco user Advance Directives: Yes Advance Directives Information Provided: No Advance Directives on File: No Current occupational status: employed 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 Blood pressure elevated. Heart rate normal. Respiratory rate normal. Temperature normal. Oxygen saturation normal. Appearance: Alert. Oriented X3. No acute distress. Head: Normal external exam. Normocephalic. Atraumatic. No Cook signs noted. No raccoon eyes noted Eyes: PERRLA. EOMI. Conjunctiva and sclera normal. Eyelids normal. ENT: TM's Normal. Pharynx normal. Uvula midline. Moist mucous membranes. No trismus noted. No drooling noted. No muffled voice noted. Neck: Normal inspection. Neck supple. FROM. No adenopathy. Thyroid Normal. No meningeal signs. No neck mass noted. CVS: Normal heart rate and rhythm. Heart sound normal. No murmurs noted. Pulses normal throughout. Respiratory: No respiratory distress. Painless inspiration. Breath sounds normal. No wheezes/rales/rhonchi noted. Chest nontender. No accessory muscle usage noted or decreased air movement noted. Abdomen: Soft and nontender. Bowel sounds normal in all 4 quadrants. No distention noted. No organomegaly noted. No visible injury noted. Back: No CVA tenderness. Full range of motion noted. Skin: Skin warm and dry. Normal skin color. Normal skin turgor. No rashes/lesions/lacerations noted. Extremities: No lower extremity edema. Extremities exhibit normal range of motion. Extremities nontender. Neuro: Mental status: Normal attention, orientation, memory, and affect. Cranial nerves: Pupils are equal, round and reactive to light, EOMI, visual rai are fall, face is symmetric, facial sensations are normal. Motor examination normal muscle tone, strength to 4 extremities. DTR are +2, planter's are flexor. Sensory exam; normal coordination, no ataxia, gait stable. Cerebellar exam: Qthesv-qo-nfwn and oeiv-cu-ymwq is normal. Extrapyramidal system: No tremors, no rigidity with normal facial expressions. Pronator drift not present Course Reevaluation(s) Reevaluation #1: 70-year-old male sustained a near syncopal episode while he is having his physical therapy session today patient has unremarkable workup in the emergency department except for chronic iron deficiency anemia, negative cardiac workup. Patient thinks that he felt that way because he did not have breakfast this morning patient now feels better, no orthostatic hypotension, received a L of IV fluids. Will reassure and discharge the patient to follow-up with PCP. Time: 13:35 Reevaluation #2: reassuring workup in the ED today, when patient is ready to be discharged repeat vital signs showed bradycardia with heart rate in the 40s the was confirmed by repeat EKG showing heart rate of 48. Could be related to medication or AV conduction disorder patient will need to be admitted for further evaluation by director information security. Time: 14:22 Medications Administered Discontinued Medications Generic Name Dose Route Start Last Admin Trade Name Freq PRN Reason Stop Dose Admin Sodium Chloride 1,000 mls @ 999 mls/hr 06/01/25 11:21 06/01/25 13:09 Ns IV 06/01/25 12:21 Infused .Q1H1M ONE Infusion Medical Decision Making Differential Diagnosis Differential Diagnoses: The differential diagnosis associated with the presentation includes ( Vasovagal hypotension, orthostatic hypotension, electrolyte derangement, severe anemia, dehydration, hypovolemia.) Admission/Observation Consideration of admission/observation: Escalation of care including admission/observation considered Lab Data MDM Lab Attestation statement: I reviewed the patient's lab results. 06/01/25 10:31 06/01/25 10:31 Labs: Lab Results 06/01/25 06/01/25 Range/Units 10:31 12:48 WBC 9.6 (4.8-10.8) X10*3/uL RBC 4.72 (4.60-5.80) X10*6/uL Hgb 11.7 L (14.0-18.0) g/dl Hct 37.3 L (42.0-52.0) % MCV 79.0 L (80.0-98.0) fL MCH 24.8 L (27.0-33.0) pg MCHC 31.4 (31.0-36.0) g/dl RDW 18.5 H (11.0-16.0) % Plt Count 174 (160-400) X10*3/uL MPV 10.5 (9.4-12.4) fL Immature Gran % (Auto) 0.4 (0.0-0.4) % Neut % (Auto) 79.9 H (45-73) % Lymph % (Auto) 5.1 L (20-40) % Burnett % (Auto) 8.6 (2-11) % Eos % (Auto) 5.1 H (0-4) % Baso % (Auto) 0.9 (0-2) % Lymph # (Auto) 0.5 L (1.2-4.9) X10*3/uL Burnett # (Auto) 0.8 (0.1-1.2) X10*3/uL Eos # (Auto) 0.5 H (0.0-0.4) X10*3/uL Baso # (Auto) 0.1 (0.0-0.2) X10*3/uL Abs Immat Gran (auto) 0.04 H (0.00-0.03) X10*3/uL Absolute Neuts (auto) 7.7 (2.0-8.3) x10*3/uL Absolute Nucleated RBC 0.000 (0.0-0.012) X10*3/uL Nucleated RBC % (auto) 0.0 (0.0-0.2) /100WBC Sodium 140 (135-145) mmol/L Potassium 3.8 (3.3-5.1) mmol/L Chloride 109 H (96-108) mmol/L Carbon Dioxide 23 (22-29) mmol/L Anion Gap 12 (12-20) BUN 19 H (9-16) mg/dL Creatinine 0.89 (0.5-1.4) mg/dL Estim Creat Clear Calc 75.3 Estimated GFR > 60 Random Glucose 89 (60-115) mg/dL Calcium 9.1 (8.4-10.2) mg/dL Total Bilirubin 0.4 (0.0-1.0) mg/dL AST 33 (5-37) U/L ALT 34 (0-40) U/L Alkaline Phosphatase 105 (39-117) U/L Troponin I High Sens 2.9 2.9 (<3.5-35.0) ng/L Total Protein 6.4 L (6.5-8.0) g/dL Albumin 4.1 (3.5-5.0) g/dL Discharge Plan Discharge Clinical Impression: Near syncope, Bradycardia Patient Disposition: Admitted As Inpatient Print Language: Georgian
[2025-06-01 13:28] LABS: Troponin-I High Sensitivity 2.9 ng/L (<3.5-35.0)
--- NOTE | 2025-06-01 13:57 | ECG_ITS ---
Test Reason : LOW HR Blood Pressure : */* mmHG Vent. Rate : 48 BPM Atrial Rate : 48 BPM P-R Int : 170 ms QRS Dur : 160 ms QT Int : 538 ms P-R-T Axes : -55 21 96 degrees QTcB Int : 480 ms sinus vs ectopic bradycardia Right bundle branch block Inferior infarct (cited on or before 01-Jun-2025) Abnormal ECG When compared with ECG of 01-Jun-2025 10:11, Nonspecific T wave abnormality no longer evident in Inferior leads T wave inversion less evident in Anterior leads Nonspecific T wave abnormality, worse in Lateral leads Referred By: Annalisa Jennings Electronically Signed By: YOEL HANKS
--- OUTSIDE RECORDS SUMMARY | 2025-06-01 14:17 | XMS_ITS | Patient Health Record ---
Author Organization [facility] Address [address] [place] [address] Care Team Providers Care Hand Wood Sander Name Role Phone Ting Hernandez MD Primary Care Provider UnavailJulio Bronson Unavailable [phone] Reason For Referral No Information Medications Medication SIG (Take, Route, Frequency, Duration) Notes Start Date End Date Status Triamterene-HCTZ 37.5-25 MG Oral; Duration: 90 Active Metoprolol Succinate ER 100 MG Oral; Duration: 90 Active Night Splint AFO - L1930 as directed 05/16/2016 Active Fluarix Quadrivalent 0.5 ML Intramuscular Not-Taking Zostavax 14476 UNT/0.65ML Subcutaneous; Duration: 1 Not-Taking Social History Tobacco use other than smoking: Question Answer Notes Are you an other tobacco user? No Problems Problem Type SNOMED Code ICD Code Onset Dates Problem Status W/U Status Risk Notes Problem Plantar fascial fibromatosis (77778398) Plantar fascial fibromatosis (M72.2) Active confirmed Encounters Encounter Location Date Provider Diagnosis [facility] [address] [place] [address] 10/27/2024 Julio Blandon Plan Of Treatment Pending Test Test Name Order Date X ray : Foot, left 3V 06/09/201777837,[id number] TENDON SHEATH/LIGAMENT 1 07/23/201516854,[id number] TENDON SHEATH/LIGAMENT 1 07/27/2015 Insurance Providers Payer Name Payer Address Payer Phone Subscriber Number Group Number Insured Name Patient Relationship to Insured Coverage Start Date Coverage End Date [facility] [address] [place] [address], [place] [address] [id number] Mustapha Segura Self - patient is the insured Medical (General) History Medical History History ICD Code Arthritis High blood pressure Chicken pox Surgical History Surgery Date(Month/Year) total left knee replacement 2009 total right knee replacement 2014
--- OUTSIDE RECORDS SUMMARY | 2025-06-01 14:17 | XMS_ITS | Encounter Summary ---
Author Organization [facility] Address [address] [facility] [address] [place] [address] Phone Care Team Providers Care Bath Steward/Stewardess Name Role Phone Ray Bedolla MD Primary Care Provider + Encounter Details Date Type Department Care Team (Late st Contact Info) Description 05/20/2022 Procedure Pass , Ct Scan - [address] [address] Social History Tobacco Use Types Packs/Day Years [...] on filedocumented in this encounter Care Teams Bath Steward/Stewardess Relationship Specialty Start Date End Date Ray Bedolla MD [address] [place] [address] PCP - General Family Medicine 05/03/18 documented as of this encounter Additional Source Comments The information contained in this document represents components of the legal health record. It is not the complete legal health record.[facility]
--- OUTSIDE RECORDS SUMMARY | 2025-06-01 14:18 | XMS_ITS | Encounter Summary ---
Author Organization [facility] Address [address] [place] [address] Phone Care Team Providers Care Electrotype Caster Name Role Phone Ray Bedolla MD Primary Care Provider + Encounter Details Date Type Department Care Team (Latest Contact Info) Description 05/16/2022 Transcribe Orders Virtual Department [address] [place] [address] Tammy Madrigal PA-C [address] [place] [address] [email or web address] Elevated LFTs (Primary Dx) Social History [...] chemistry documented in this encounter Care Teams Electrotype Caster Relationship Specialty Start Date End Date Ray Bedolla MD [address] [place] [address] PCP - General Family Medicine 05/03/18 documented as of this encounter Additional Source Comments The information contained in this document represents components of the legal health record. It is not the complete legal health record.[facility]
--- OUTSIDE RECORDS SUMMARY | 2025-06-01 14:18 | XMS_ITS | Data Portability ---
Author Organization [place] [facility] Address [address] [address] Care Team Providers Care Transcript Clerk Name Role Phone AMATY SARAH Primary Care [...] Abnormal Flag Note LastModifiedBy Organization Detail LastModifiedTime 07/28/19 25 07/02/2024 MRI, brain + pitui tary, w/o contr ast No observ ation record ed. [email or web address] Not Available 07/13 14:04:19 Result Notes None recorded. 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, [place], [address], [facility] 12:51:45 Problem Notes None recorded. Procedures Surgical History Date Name Laterality Status Provider Name and Address Organization Details Recorded Time 08/19/2024 NasalEndos copy_DP completed ALEJANDRA CHASE MD [address] [facility], [place], [address], [facility] 08/19/2024 14:15:20 Imaging Results None recorded. [...] Updated DateTime 08/19/2024 182.88 cm 29 kg/m2 44662.77 g Shila Vargas [place] - [facility] 08/19/2024 14:04:04 Social History None recorded. Functional Status None recorded. Mental Status None recorded. Family History Nothing Reported. Medical History No medical history recorded. Past Encounters Encounter ID Performer Location Encounter Start Date Encounter Closed Date Diagnosis/Indication Diagnosis SNOMED-CT Code Diagnosis ICD10 Code Diagnosis IMO Codes Diagnosis Note [id number] ALEJANDRA CHASE MD [facility] [address] [address] 08/19/2024 13:41:14 08/19/2024 16:29:44 Neoplasm of pituitary gland 853082718 D49.[address] Payne. He [...] Rob Member ID Guarantor Name 08/19/2024 1 [facility] [id number] Mustapha Segura [id number] Mustapha Segura Notes Date Note Type Note Provider Name and Address Organization Details Recorded Time text/html ROS as noted in the HPI pituitary lesionreferral from Dr Looney thyroid replacementawaiting referral to Dr Max for eye examhx of esophageal ca [address] Christianson 07/02/2024 [facility] macroadenoma. 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 No extension into cavernous sinus. 27 x 21 x 23 mm. Progression since 2021 ALEJANDRA CHASE MD [address] [address], [place], [address], [place] - [facility] 08/19/2024 14:24:11
--- OUTSIDE RECORDS SUMMARY | 2025-06-01 14:18 | XMS_ITS | Encounter Summary ---
Author Organization [facility] Address [address] [place] [address] Phone Care Team Providers Care Abrasive Grader Name Role Phone Ray Bedolla MD Primary Care Provider + Encounter Details Date Type Department Care Team (Late st Contact Info) Description 05/19/2022 Procedure Pass [facility] Endoscopy Admitting Dept Virtual Department [address] [place] [address] Social History Tobacco Use Types Packs/Day Years [...] on filedocumented in this encounter Care Teams Abrasive Grader Relationship Specialty Start Date End Date Ray Bedolla MD [address] [place] [address] PCP - General Family Medicine 05/03/18 documented as of this encounter Additional Source Comments The information contained in this document represents components of the legal health record. It is not the complete legal health record.[facility]
--- OUTSIDE RECORDS SUMMARY | 2025-06-01 14:18 | XMS_ITS | Encounter Summary ---
Author Organization [facility] Address [address] [place] [address] Phone Care Team Providers Care Security Sales Manager Name Role Phone Ray Bedolla MD Primary Care Provider + Encounter Details Date Type Department Care Team (Late st Contact Info) Description 05/20/2018 Procedure Pass [facility] Endoscopy Admitting Dept Virtual Department [address] [place] [address] Social History Tobacco Use Types Packs/Day Years [...] documented as of this encounter Care Teams Security Sales Manager Relationship Specialty Start Date End Date Ray Bedolla MD [address] [place] [address] PCP - General Family Medicine 05/03/18 documented as of this encounter Additional Source Comments The information contained in this document represents components of the legal health record. It is not the complete legal health record.[facility]
--- OUTSIDE RECORDS SUMMARY | 2025-06-01 14:18 | XMS_ITS | Encounter Summary ---
Author Organization [facility] Address [address] [facility] [address] [place] [address] Phone Care Team Providers Care Benefits Specialist Recruiter Name Role Phone Ray Bedolla MD Primary Care Provider + Encounter Details Date Type Department Care Team (Late st Contact Info) Description 05/20/2022 Procedure Pass [facility], Ct Scan - [address] [address] Social History Tobacco Use Types Packs/Day Years [...] on filedocumented in this encounter Care Teams Benefits Specialist Recruiter Relationship Specialty Start Date End Date Ray Bedolla MD [address] [place] [address] PCP - General Family Medicine 05/03/18 documented as of this encounter Additional Source Comments The information contained in this document represents components of the legal health record. It is not the complete legal health record.[facility]
--- OUTSIDE RECORDS SUMMARY | 2025-06-01 14:18 | XMS_ITS | Clinical Summary ---
Author Organization [facility] Address [address] [place] [phone] Phone Care Team Providers Care Automatic Clipper Name Role Phone Ray Bedolla MD Primary [...] ENDOSCOPY, COLON 05/19/2022 12:2 4 PM EST THYROID STIMULATING HORMONE (TSH) Routine 05/09/2022 3:02 PM EDT Anemia, unspecified type Change in bowel habits Gastroesophageal reflux disease, unspecified whether esophagitis present COMPREHENSIVE METABOLIC PANEL (CMP) Routine 05/09/2022 3:02 PM EDT Anemia, unspecified [...] 05/19/2022 12:24 PM EST Patient Name: Vance Dueñassaroj Attending MD:: GLENN WHEELER MD Procedure Date: 05/19/2022 12:24 PM Date of : 1955 Age: 67 Admit Type: Outpatient Gender: Male Room: [place] [address] Referring MD: Ray Bedolla Exam Type: Colonoscopy [...] monitored continuously. The Olympus adult variable colonoscope [id number] #2 was introduced through the anus and [...] 12:24 PM Procedure Code(s): --- Professional --- 55017, Colonoscopy, flexible; diagnostic, including collection of specimen(s) by brushing or washing, when performed (separateprocedure) --- Technical --- 68178, Colonoscopy, flexible; diagnostic, including collection of specimen(s) [...] Iron deficiency anemia, unspecified CPT copyright 2020 [employer]. All rights reserved. The codes documented in this report are preliminary and upon health and fitness instructor reviewmay be revised to meet current compliance requirements. Procedure Date: 05/19/2022 12:24:00 PM [address] [place] [address] Ray Bedolla MD GI PROCEDURE ORDERABLES Final Result * (ABNORMAL) Comprehensive metabolic panel (05/09/2022 3:02 PM EDT) SODIUM 138 133 - 146 mmol/L [facility] POTASSIUM 3.9 3.3 - 5.1 mmol/L [facility] CHLORIDE 99 96 - 108 mmol/L [facility] CO2 24 21 - 35 mmol/L [facility] BUN 20(H) 6 - 19 mg/dL [facility] CREATININE 0.90 0.5 - 1.5 mg/dL [facility] GLUCOSE 143(H) 70 - 99 mg/dL [facility] ALBUMIN 4.8 3.9 - 4.8 g/dL [facility] TOTAL PROTEIN 7.3 6.5 - 8.0 g/dL [facility] CALCIUM 9.8 8.4 - 10.3 mg/dL [facility] ALKALINE PHOSPHATASE 94 39 - 117 U/L [facility] TOTAL BILIRUBIN 0.3 0.0 - 1.2 mg/dL [facility] AST 79(H) 0 - 37 U/L [facility] ALT 73(H) 0 - 40 U/L [facility] GLOBULIN 2.5 1 - 4.8 g/dL [facility] EGFR 94 >59 mL/min/1.7 3m2 [facility] Comment:Estimated glomerular filtration rate calculated using the CKD-EPI refit equation. ANION GAP 19 10 - 20 mmol/L [facility] Blood 05/09/2022 3:02 PM EDT 05/09/2022 3:08 PM EDT us Tammy Madrigal PA-C LAB BLOOD BKR ORDERABLES Final Result [address] [id number] * TSH (05/09/2022 3:02 PM EDT) TSH 0.90 0.27 - 4.20 uIU/mL [facility] Blood 05/09/2022 3:02 PM EDT 05/09/2022 3:08 PM EDT Tammy Madrigal PA-C LAB BLOOD BKR ORDERABLES Final Result [address] [id number] from Last 3 Months or Most Recently Relevant to Health Maintenance [place] [address] [place] [address] [place] [address] [place] [address] HMO [facility] [employer] COMPENSATION [address] [place] [address] Care Teams Automatic Clipper Relationship Specialty Start Date End Date Ray Bedolla MD [address] [place] [address] [phone] PCP - General Family Medicine 05/03/18 Additional Source Comments The information contained in this document represents components of the legal health record. It is not the complete legal health record.[facility]
--- OUTSIDE RECORDS SUMMARY | 2025-06-01 14:18 | XMS_ITS | Encounter Summary ---
Author Organization [facility] Address [address] [place] [phone] Phone Care Team Providers Care Lcsw Name Role Phone Ray Bedolla MD Primary Care Provider + Reason for Referral * MRI/CAT Scan - Closed Specialty Diagnoses / Procedures Referred By Contac t Referred To Contact Radiology Diagnoses Adenocarcinoma, gastric cardia Procedures CT Chest CHG DIAGNOSTIC COMPUTED TOMOGRAPHY THORAX W/CONTRAST Rakan Forbes MD Phone: tel: fax: mailto:[email or web address] Referral ID Status Reason Start Date Expiration Date Visits Re quested Visits Authorized [id number] Closed 05/20/2022 07/19/2022 1 1 * MRI/CAT Scan - Closed Specialty Diagnoses / Procedures Referred By Contac t Referred To Contact Radiology Diagnoses Adenocarcinoma, gastric cardia Procedures CT Abdomen Only (No Pelvis) CHG CT SCAN OF ABDOMEN CONTRAST Rakan Forbes MD Phone: tel: fax: mailto:[email or web address] Referral ID Status Reason Start Date Expiration Date Visits Re quested Visits Authorized [id number] Closed 05/20/2022 07/19/2022 1 1 Encounter Details Date Type Department Care Team (Latest Contact Info) Description 05/20/2022 Transcribe Orders [facility] Department [address] [place] [id number] Rakan Forbes MD [address] [place] [id number] [email or web address] Adenocarcinoma, gastric cardia (Primary Dx) [...] to characterize. us Rakan Forbes MD [facility] CT CHEST [...] cardia documented in this encounter Care Teams Lcsw Relationship Specialty Start Date End Date Ray Bedolla MD [address] [place] [phone] PCP - General Family Medicine 05/03/18 documented as of this encounter Additional Source Comments The information contained in this document represents components of the legal health record. It is not the complete legal health record.[facility]
--- OUTSIDE RECORDS SUMMARY | 2025-06-01 14:18 | XMS_ITS | Clinical Summary ---
Author Organization [facility], Address [address] [place] [address] Phone Care Team Providers Care Environmental Technician Name Role Phone Ray Bedolla MD Primary Care Provider [phone]- [phone] Allergies No known active allergies Medications zolpidem [...] patient's age to complete this topic Insurance [facility] Care Teams Environmental Technician Relationship Specialty Start Date End Date Ray Bedolla MD [address] [place] [phone] PCP - General Family Medicine 06/10/22
--- NOTE | 2025-06-01 14:50 | PM.IMHP ---
History of Present Illness Date of Service: 06/01/25 Attending physician on admission: Flaco Blanca Chief Complaint: dizziness This is a 70 year old male with history of HTN who was brought to the ED after an outpatient response was called in physical therapy. Patient was in occupational therapy getting treatment following a wrist fracture. He was in his usual state of health talking to the therapist when he reportedly syncopized while sitting down in a chair. An outpatient response was called and he reports waking up with multiple people standing around him. His blood pressure was obtained and reportedly low at 83/54. He denies any dizziness chest pain, shortness of breath. He was transported to the emergency department for evaluation. Lab work was unremarkable. EKG revealed sinus bradycardia. Patient has had no further episodes of near syncope or syncope. He did report starting a new blood pressure medication about one month ago and has had intermittent episodes of dizziness since. Review of Systems Review of Systems: Yes all other systems are reviewed and are negative Constitutional: Constitutional: Denies chills and Denies fever(s) Cardiovascular: Cardiovascular: Denies chest pain and Denies dyspnea Respiratory: Respiratory: Denies cough and Denies dyspnea Gastrointestinal: Gastrointestinal: Denies abdominal pain, Denies nausea and Denies vomiting [facility] Medical History History of esophageal cancer Surgical History History of knee surgery Social History Household Members: Spouse Housing: House Do you presently have visiting nurse or other home services: No Alcohol intake: current Alcohol intake frequency: holidays/special occasions only Patient Tobacco Use Status: Former Tobacco user Advance Directives Date on File: 06/01/25 service: No Current occupational status: employed 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, 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 Meds Allergies Allergy/AdvReac Type Severity Reaction Status Date / Time No Known Allergies Allergy Verified 06/01/25 09:47 Home Medications ?Medication ?Instructions ?Recorded ?Confirmed ?Last Taken ?Type CPAP 04/11/25 Unknown History albuterol sulfate 90 mcg/actuation 2 puff inhalation Q4-6H PRN 04/11/25 06/01/25 Unknown History aerosol inhaler Shortness Of Breath Or Wheezing citalopram 10 mg tablet 10 mg PO DAILY 04/11/25 06/01/25 05/31/25 History famotidine 20 mg tablet 20 mg PO BID 04/11/25 06/01/25 05/31/25 History fluticasone propionate 50 2 spray intranasal DAILY PRN Nasal 04/11/25 06/01/25 Unknown History mcg/actuation nasal Congestion spray,suspension levothyroxine 75 mcg tablet 75 mcg PO DAILY@0600 04/11/25 06/01/25 05/31/25 History prednisone 5 mg tablet 5 mg PO DAILY 04/11/25 06/01/25 05/31/25 History zafirlukast 20 mg tablet 20 mg PO BID 04/11/25 06/01/25 05/31/25 History multivitamin 1 tab PO DAILY 06/01/25 06/01/25 05/31/25 History zolpidem 10 mg tablet 10 mg PO BEDTIME PRN Sleep 06/01/25 06/01/25 Unknown History Physical Exam Vital Signs and Narrative: Vital Signs: Last Vital Signs Temp 97.5 F 06/01/25 12:43 Pulse 54 06/01/25 12:43 Resp 18 06/01/25 12:43 BP 140/88 H 06/01/25 12:43 Pulse Ox 99 06/01/25 12:43 O2 Del Method Room Air 06/01/25 12:43 BMI result Body Mass Index 20.3 Const: General: cooperative, comfortable, alert and awake Nutritional Appearance: average body habitus Orientation/consciousness: patient oriented x3 Resp: Effort & Inspection: normal respiratory effort, able to speak in complete sentences, no respiratory distress and no use of accessory muscles Auscultation: clear to auscultation bilaterally Cardio: Rate: bradycardic GI: Inspection: No distended Palpation (GI): Soft to palpation Neuro: General: patient oriented x3, moves all extremities and CN's II-XI intact bilaterally Results Labs 06/01/25 10:31 06/01/25 10:31 Labs: Laboratory Results - last 24 hr 06/01/25 06/01/25 10:31 12:48 MCV 79.0 L MCH 24.8 L MCHC 31.4 RDW 18.5 H Plt Count 174 MPV 10.5 Immature Gran % (Auto) 0.4 Neut % (Auto) 79.9 H Lymph % (Auto) 5.1 L [place] % (Auto) 8.6 Eos % (Auto) 5.1 H Baso % (Auto) 0.9 Lymph # (Auto) 0.5 L [place] # (Auto) 0.8 Eos # (Auto) 0.5 H Baso # (Auto) 0.1 Abs Immat Gran (auto) 0.04 H Absolute Neuts (auto) 7.7 Absolute Nucleated RBC 0.000 Nucleated RBC % (auto) 0.0 Anion Gap 12 Estim Creat Clear Calc 75.3 Estimated GFR > 60 Random Glucose 89 Calcium 9.1 Total Bilirubin 0.4 AST 33 ALT 34 Alkaline Phosphatase 105 Troponin I High Sens 2.9 2.9 Total Protein 6.4 L Albumin 4.1 Assessment and Plan (1) Bradycardia: Status: Acute (2) Near syncope: Status: Acute Plan This is a 70-year-old male with history of hypertension, FREEDOM, 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 Norvasc recently added medication trops negative hold norvasc and losartan for now tele monitoring to rule out arrhythmia echo Bradycardia ekg sinus patricia HR low in ED but pt asymptomatic. BP stable. less likely cause of syncope monitor on tele as above HTN hold losartan, norvasc due to low bp at time of syncope monitor BP closely FREEDOM continue CPAP Mood continue pituitary macroadenoma (with central AI, hypothyroidism, hypogonadism) follows with [facility] endocrinology continue synthroid and prednisone dvt ppx - lovenox Quality Stroke Does the patient have a stroke diagnosis?: No VTE Prior VTE?: No VTE Risk Level:: Medical - moderate - high VTE Device Contraindication: Treatment Not Indicated VTE Drug Contraindication: N/A - Med Ordered
--- NOTE | 2025-06-01 15:18 | PHA.MEDREC ---
Addendum entered by Renna Brown PharmD 06/01/25 15:19: reviewed Original Note: Pharmacy Consult ? Medication Reconciliation Pharmacy has completed the medication reconciliation. Spoke with pt and he confirmed his medications.
[2025-06-01] MEDS: 0.9 % Sodium Chloride Flush 3 ML SYRINGE IVFLUSH (17:23)
[2025-06-02 01:16] LABS: Appearance Urine Clear; Glucose Urine UA Negative (Negative); PH 5.5 (5.0-9.0); Specific Gravity - Urine 1.015 (1.005-1.025)
[2025-06-02 04:00] VITALS: BP 165/85; PULSE 50; RESP 18; TEMP 36.8; O2SAT 92
--- NOTE | 2025-06-02 07:00 | CA_ITS ---
Transthoracic Echocardiogram Patient (Last, First, Middle): Mustapha Segura, Gender: M Date of : 1955 Age: 70 Procedure Date: 06/02/2025 Procedure Type: Transthoracic Echocardiogram Location: ER Height: 182.88 cm Weight: 90.72 kg BSA: 2.13 m2 Heart Rate: 49 bpm BP: 165 / 85 mmHg Survey Research Associate: Referring MD: Marissa WADDELL Symptoms: near syncope Study Quality: Fair ECG Rhythm: Bradycardia Conclusions: - The left ventricular systolic function is normal. The calculated ejection fraction is 66% by biplane method. - There is moderately increased left ventricular wall thickness. - No obvious valvular pathology seen on this study. Findings Left Ventricle Normal left ventricular cavity size. There is moderately increased left ventricular wall thickness. The left ventricular systolic function is normal. The calculated ejection fraction is 66% by biplane method. There is no evidence of regional wall motion abnormalities. Diastolic function is normal for age. Right Ventricle Normal right ventricular cavity size and systolic function. Atria Both atria are normal in size. Aortic Valve There is a normal trileaflet aortic valve. There is mild calcification of the aortic valve. There is no aortic valve stenosis. There is no aortic valve regurgitation. Mitral Valve The mitral valve appears normal. There is trace mitral valve regurgitation. There is no mitral valve stenosis. Pulmonic Valve The pulmonic valve is likely normal. Tricuspid Valve There is trace tricuspid valve regurgitation. There is no evidence of pulmonary hypertension. Great Vessels The asc aorta is normal in size. Venous The inferior vena cava is normal in size and collapses greater than 50% with inspiration. Pericardium/Pleural There is no evidence of pericardial effusion. Prior Study Comparison No prior study available for comparison. Recommendations, Care & Conclusions No obvious valvular pathology seen on this study. Measurements 2D Linear Measurements IVSd: 1.45 0.6-0.9/0.6-1.0 cm LVIDd: 5.13 3.9-5.3/4.2-5.9 cm LVIDd Index: 2.41 2.4-3.2/2.2-3.1 cm/m2 LVIDs: 3.27 2.0-3.6 cm LVPWd: 1.32 0.7-1.1 cm LA Diam: 3.60 2.7-3.8/3.0-4.0 cm LAIDs Index: 1.69 1.5-2.3 cm/m2 LV Mass: 372.35 67-162/88-224 g LV Mass Index: 174.81 43-95/49-115 g/m2 LVOT Diam: 2.40 3.0+(-)1.3 cm 2D Systolic Function EF 4C: 65.40 >55% EF 2C: 64.70 >55% EF BiP: 65.80 >55% Mitral Valve MV Pk E: 0.45 MV PK A: 0.56 MV Decel Time: 288.00 E/A: 0.80 E'Lateral: 5.98 E'Medial: 3.26 E/E' Med: 13.70 E/E' Lat: 7.50 PHT: 84.00 MVA PHT: 2.62 Decel [place]: 1.55 Aortic Valve AoV Pk Prakash: 1.61 AoV Mn Prakash: 1.09 AoV VTI: 0.38 AoV Pk Grad: 10.00 Aov Mn Grad: 6.00 CRAIN Cont.VTI: 2.48 LVOT LVOT Pk Prakash: 0.87 LVOT Mn Prakash: 0.59 LVOT VTI: 0.21 LVOT Pk Grad: 3.00 LVOT Mn Grad: 2.00 LVOT Diam: 2.40 LVOT Area: 4.52 Diastolic Function MV Pk E: 0.45 MV Pk A: 0.56 E/A: 0.80 E'Medial: 3.26 E/E' Med: 13.70 E' Laterial: 5.98 E/E' Lat: 7.50 Right Ventricle TAPSE (mm): 22.80 TVS' Prakash: 10.10 Tricuspid Valve TR Pk Prakash: 1.76 TR Pk Grad: 12.00 RA Press: 8.00 RVSP: 15.00 Great Vessels Aorta Sinus of Valsalva: 4.00 2.0-3.5 cm Ao Asc: 3.70 2.1-3.4 cm Pulmonary Valve PV Pk Prakash: 0.68 Peak PV Grad: 2.00 Updated in Other Vendor System with Status of Final Ran Vargas MD electronically signed on 06/02/2025 11:34:21 AM with status of Final
[2025-06-02 07:51] VITALS: BP 172/87; PULSE 47; RESP 20; TEMP 36.3; O2SAT 100
--- NOTE | 2025-06-02 09:45 | MHC.CM.PN ---
MADELINE 06/02. PATIENT SELF-CARE, LIVES AT HOME WITH HIS /HCP, HIS WILL TRANSPORT HIM HOME AT DISCHARGE. PATIENT STATES HE USES A CPAP. HCP COPY REQUESTED. PCP: DR. SARAH OLSEN
[2025-06-02 12:00] VITALS: BP 153/81; PULSE 54; RESP 20; TEMP 36.5; O2SAT 99
--- NOTE | 2025-06-02 12:27 | P.DS_ITS ---
DS: Providers Provider Date of Service: 06/02/25 Date of admission: 06/01/25 14:47 Date of discharge: 06/02/25 Primary care physician: Ray Bedolla MD DS: Diagnosis Discharge Diagnosis (1) Bradycardia: Status: Acute (2) Near syncope: Status: Acute DS: Summary Hospital Course Hospital Course: 70 year old male with history of HTN who was brought to the ED after an outpatient response was called in physical therapy. Patient was in occupational therapy getting treatment following a wrist fracture. He was in his usual state of health talking to the therapist when he reportedly syncopized while sitting down in a chair. An outpatient response was called and he reports waking up with multiple people standing around him. His blood pressure was obtained and reportedly low at 83/54. He denies any dizziness chest pain, shortness of breath. He was transported to the emergency department for evaluation. Lab work was unremarkable. EKG revealed sinus bradycardia. Patient has had no further episodes of near syncope or syncope. He did report starting a new blood pressure medication about one month ago and has had intermittent episodes of dizziness since. Syncope Likely due to hypotension, bp at time of event was 83/54. Losartan 25mg recently added medication trops negative hold losartan for now tele monitoring to rule out arrhythmia ECHO ordered revealing normal LVEF without wall motion abnormality or valvulopathy Patient's syncope was likely precipitated by hypotension with inappropriately normal heart rate (not tachycardic) Follow up with patient's pump service supervisor at [facility], as per patient preference within 1 week of discharge Bradycardia History of RBBB ECG sinus patricia HR low in ED but pt asymptomatic. BP stable. less likely cause of syncope monitor on tele as above HTN hold losartan, norvasc due to low bp at time of syncope monitor BP closely Status at Discharge Functional status at discharge: independent ambulation Overall status at discharge: patient is back to baseline Time Attestation Total time managing care of this patient today: 45 mintues. Discharge Coordination Time (in mins): 35 Quality: Safe Use of Opioids Does Pt have an Active Cancer Diagnosis on the Problem List?: No Quality: Stroke Does the patient have a stroke diagnosis?: No Physical Exam Exam: Exam: General: A&O x3, oriented to time place person and situation, comfortable, no pain Cardiac: S1, S2 auscultated with no S3/4, no MRG. Well perfused. Respiratory: Normal breath sounds auscultated throughout all lung zones, without wheezing, rales. Normal rate. GI/ : No abdominal pain on palpation, no masses or distentions. MSK: Normal ambulation without pain at bony prominences or musculature Neurological: Normal neurological examination on overview, without obvious CN II-XII abnormalities. Vital Signs: Vital Signs: Last Vital Signs Temp 97.7 F 06/02/25 12:00 Pulse 54 06/02/25 12:00 Resp 20 06/02/25 12:00 BP 153/81 H 06/02/25 12:00 Pulse Ox 99 06/02/25 12:00 O2 Del Method Room Air 06/02/25 12:00 BMI result Body Mass Index 20.3 DS: Data Data Completed and Pending Labs on day of discharge: Laboratory Results - last 24 hr 06/01/25 06/02/25 12:48 01:00 Troponin I High Sens 2.9 Urine Color Yellow Urine Appearance Clear Urine pH 5.5 Ur Specific [place] 1.015 Urine Protein Negative Urine Glucose (UA) Negative Urine Ketones Negative Urine Blood Negative Urine Nitrite Negative Ur Leukocyte Esterase Negative Discharge Plan Discharge Anticipated Discharge Date/Time: 06/02/25 12:30 Patient Disposition: Home, Self-Care Discharge Diagnosis: Hypotension 2/2 antihypertensive use, in the setting of baseline bradycardia Referrals: Ray Bedolla MD [Primary Care Provider, Internal Medicine] Discharge Medications: No Action losartan 25 mg tablet 25 mg PO DAILY zolpidem 10 mg tablet 10 mg PO BEDTIME PRN (Reason: Sleep) multivitamin Tablet 1 tab PO DAILY citalopram 10 mg tablet 10 mg PO DAILY prednisone 5 mg tablet 5 mg PO DAILY levothyroxine 75 mcg tablet 75 mcg PO DAILY@0600 famotidine 20 mg tablet 20 mg PO BID zafirlukast 20 mg tablet 20 mg PO BID albuterol sulfate 90 mcg/actuation HFA aerosol inhaler 2 puff inhalation Q4-6H PRN (Reason: Shortness Of Breath Or Wheezing) fluticasone propionate 50 mcg/actuation spray,suspension 2 spray intranasal DAILY PRN (Reason: Nasal Congestion) (DME) CPAP Device See Rx Instructions .ROUTE Rx Instructions: As directed Discharge Orders: Discharge Order (Routine); Ordered 06/02/25 Ordered By: Osama Kandalaft Diet: Advance to usual diet Activity on Discharge: As tolerated Stand Alone Forms: Patient Portal Discharge page Print Language: Maori Care Plan Goals: As above Health Concerns: As above Plan of Treatment: Follow up with Cardiology within 1 week of discharge Follow up PCP within 1 week of discharge Avoid antihypertensive medications for the time being Check blood pressure home twice a day in the morning and in the evening Assessment: Patient deemed to be hemodynamically stable at time of discharge, with normalized blood pressure, mildly elevated 153/81. Heart rate 54 beats per minute, baseline bradycardia with baseline right bundle branch block. The patient has cardiology follow up. Impression of syncopal event in the setting of recently starting losartan with baseline chronotropic incompetence Patient Instructions: Near Syncope (ED)
== END 2025-06-02 13:21 | disposition home or self-care (01) ==
LOC: HO.ED 14:24 → HO.EDOVER 14:53 → HO.IMC 15:31
PROVIDERS: Admitting Provider Physician Assistant Medical; Emergency Provider Emergency Medicine; PCP Family Medicine; Visit Provider Hospitalist
DX: R00.1 Bradycardia, unspecified (principal); R55 Syncope and collapse; I45.10 Unspecified right bundle-branch block; I10 Essential (primary) hypertension; G47.33 Obstructive sleep apnea (adult) (pediatric); Z99.89 Dependence on other enabling machines and devices; Z87.891 Personal history of nicotine dependence; Z79.899 Other long term (current) drug therapy
CPT/HCPCS: 36415; 80053; 81003; 84484; 85025; 93005; 93306; 96360; 96361; 96372; 99222; 99285; J1650; Q9957

== ENCOUNTER → 2025-06-01 09:51 | Outpatient (BNV) | payer OTHER, SELFPAY | PROVIDERS: Emergency Provider Emergency Medicine; PCP Family Medicine; Visit Provider Internal Medicine | DX: I45.10 Unspecified right bundle-branch block (principal); I25.2 Old myocardial infarction | CPT/HCPCS: 93010 ==

== ENCOUNTER 2025-06-01 14:47 | Outpatient (BNV) | payer OTHER, SELFPAY | END 2025-06-02 07:00 | PROVIDERS: Admitting Provider Physician Assistant Medical; Emergency Provider Emergency Medicine; PCP Family Medicine; Visit Provider Internal Medicine | DX: I35.8 Other nonrheumatic aortic valve disorders (principal) | CPT/HCPCS: 93306 ==

== ENCOUNTER → 2025-06-01 14:47 | Outpatient (BNV) | payer OTHER, SELFPAY | PROVIDERS: Admitting Provider Physician Assistant Medical; Emergency Provider Emergency Medicine; PCP Family Medicine; Visit Provider Hospitalist | DX: R00.1 Bradycardia, unspecified (principal); R55 Syncope and collapse | CPT/HCPCS: 99222; 99239 ==

== ENCOUNTER 2025-06-05 08:45 | Outpatient (REF) | payer OTHER, SELFPAY ==
--- NOTE | ~2025-06-05 | XR_ITS ---
EXAMINATION: XR WRIST 3 OR MORE VIEWS LEFT HISTORY: M25.532 - Pain in left wrist COMPARISON: Comparison is made with the prior examination dated 05/01/2025. FINDINGS: Three views of the left wrist are submitted. The bones are osteopenic. Again seen is a fracture of the distal radial metaphysis. There is greater sclerosis at the fracture line consistent with healing. Again noted is severe degenerative change of the radiocarpal articulation. The soft tissues are unremarkable. XR/XR wrist LT min 3V IMPRESSION: Healing fracture of the distal radial metaphysis. Electronically signed by: Hardik Patricia MD 06/05/2025 02:13 PM [facility] LIN
--- OUTSIDE RECORDS SUMMARY | 2025-06-06 09:17 | XMS_ITS | Clinical Summary ---
Author Organization [facility] Address [address] [place] [address] Phone Care Team Providers Care Music Supervisor Name Role Phone Ray Bedolla MD [...] 67 Admit Type: Outpatient Gender: Male Room: [place] [address] Referring MD: Ray Bedolla Exam Type: Colonoscopy [...] monitored continuously. The Olympus adult variable colonoscope [id number] #2 was introduced through the anus and [...] 12:24 PM Procedure Code(s): --- Professional --- 31596, Colonoscopy, flexible; diagnostic, including collection of specimen(s) by brushing or washing, when performed (separateprocedure) --- Technical --- 22355, Colonoscopy, flexible; diagnostic, including collection of specimen(s) [...] Iron deficiency anemia, unspecified CPT copyright 2020 [employer]. All rights reserved. The codes documented in this report are preliminary and upon customer operations specialist reviewmay be revised to meet current compliance requirements. Procedure Date: 05/19/2022 12:24:00 PM [address] [place] [address] Ray Bedolla MD GI PROCEDURE ORDERABLES Final Result * (ABNORMAL) Comprehensive metabolic panel (05/09/2022 3:02 PM EDT) SODIUM 138 133 - 146 mmol/L [facility] POTASSIUM 3.9 3.3 - 5.1 mmol/L [facility] CHLORIDE 99 96 - 108 mmol/L [facility] CO2 24 21 - 35 mmol/L [facility] BUN 20(H) 6 - 19 mg/dL [facility] CREATININE 0.90 0.5 - 1.5 mg/dL [facility] GLUCOSE 143(H) 70 - 99 mg/dL [facility] ALBUMIN 4.8 3.9 - 4.8 g/dL [facility] TOTAL PROTEIN 7.3 6.5 - 8.0 g/dL [facility] CALCIUM 9.8 8.4 - 10.3 mg/dL [facility] ALKALINE PHOSPHATASE 94 39 - 117 U/L [facility] TOTAL BILIRUBIN 0.3 0.0 - 1.2 mg/dL [facility] AST 79(H) 0 - 37 U/L [facility] ALT 73(H) 0 - 40 U/L [facility] GLOBULIN 2.5 1 - 4.8 g/dL [facility] EGFR 94 >59 mL/min/1.7 3m2 [facility] Comment:Estimated glomerular filtration rate calculated using the CKD-EPI refit equation. ANION GAP 19 10 - 20 mmol/L [facility] Blood 05/09/2022 3:02 PM EDT 05/09/2022 3:08 PM EDT us Tammy Madrigal PA-C LAB BLOOD BKR ORDERABLES Final Result [address] [address] * TSH (05/09/2022 3:02 PM EDT) TSH 0.90 0.27 - 4.20 uIU/mL [facility] Blood 05/09/2022 3:02 PM EDT 05/09/2022 3:08 PM EDT Tammy Madrigal PA-C LAB BLOOD BKR ORDERABLES Final Result [address] [address] from Last 3 Months or Most Recently Relevant to Health Maintenance [place] [address] [place] [address] [place] [address] HMO [facility] HMO WORK[employer] COMPENSATION [address] [place] [address] Care Teams Music Supervisor Relationship Specialty Start Date End Date Ray Bedolla MD [address] [place] [address] [phone] PCP - General Family Medicine 05/03/18 Additional Source Comments The information contained in this document represents components of the legal health record. It is not the complete legal health record.[facility]
--- OUTSIDE RECORDS SUMMARY | 2025-06-06 09:17 | XMS_ITS | Encounter Summary ---
Author Organization [facility] Address [address] [place] [address] Phone Care Team Providers Care Seal Mixer Name Role Phone Ray Bedolla MD Primary Care Provider + Encounter Details Date Type Department Care Team (Late st Contact Info) Description 05/20/2018 Procedure Pass [facility] Endoscopy Admitting Dept Virtual Department [address] [place] [address] Social History Tobacco Use Types Packs/Day Years [...] documented as of this encounter Care Teams Seal Mixer Relationship Specialty Start Date End Date Ray Bedolla MD [address] [place] [address] PCP - General Family Medicine 05/03/18 documented as of this encounter Additional Source Comments The information contained in this document represents components of the legal health record. It is not the complete legal health record.[facility]
--- OUTSIDE RECORDS SUMMARY | 2025-06-06 09:17 | XMS_ITS | Data Portability ---
Author Organization [place] [facility], Allergy Address [address] [address] Care Team Providers Care Clinical Nursing Coordinator Name Role Phone AMATY SARAH Primary Care Provider [phone] Assessment Encounter Date Assessment Date Assessment LastModified [...] excision of pituitary tumor (SURG) 2024 025 [email or web address] Not available 15:06:49 Imaging None recorded. Medication Orders None recorded. Patient TargetsNo targets recorded. Patient InstructionsNo instructions recorded. Reason for Referral None Reported. Results Created Date Observation Date Name Description Value Unit Range Abnormal Flag Note LastModifiedBy Organization Detail LastModifiedTime 07/28/1907/02/2024 MRI, brain + pitui tary, w/o contr ast No observ ation record ed. [email or web address] Not Available 07/13 14:04:19 Result Notes None recorded. 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, [address], [place], [address], [facility] 12:51:45 Problem Notes None recorded. Procedures Surgical History Date Name Laterality Status Provider Name and Address Organization Details Recorded Time 08/19/2024 NasalEndos copy_DP completed ALEJANDRA CHASE MD 100 [facility] [address], [place], [address], [facility] 08/19/2024 14:15:20 Imaging Results None recorded. [...] Updated DateTime 08/19/2024 182.88 cm 29 kg/m2 98864.77 g Shila Vargas [place] - [facility] 08/19/2024 14:04:04 Social History None recorded. Functional Status None recorded. Mental Status None recorded. Family History Nothing Reported. Medical History No medical history recorded. Past Encounters Encounter ID Performer Location Encounter Start Date Encounter Closed Date Diagnosis/Indication Diagnosis SNOMED-CT Code Diagnosis ICD10 Code Diagnosis IMO Codes Diagnosis Note [id number] ALEJANDRA CHASE MD [facility] [address] [address] 08/19/2024 13:41:14 08/19/2024 16:29:44 Neoplasm of pituitary gland [id number] D49.[address] Payne. 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 No extension into cavernous sinus. 27 x 21 x 23 mm. Progression since 2021 ALEJANDRA CHASE MD [address] [address], [place], [address], [place] [facility] 08/19/2024 14:24:11
--- OUTSIDE RECORDS SUMMARY | 2025-06-06 09:17 | XMS_ITS | Encounter Summary ---
Author Organization [facility] Address [address] [facility] [address] [place] [address] Phone Care Team Providers Care Staffing Analyst Name Role Phone Ray Bedolla MD Primary Care Provider + Encounter Details Date Type Department Care Team (Late st Contact Info) Description 05/20/2022 Procedure Pass [facility], Ct Scan - [address] [address] Social History Tobacco Use Types Packs/Day Years [...] on filedocumented in this encounter Care Teams Staffing Analyst Relationship Specialty Start Date End Date Ray Bedolla MD [address] [place] [phone] PCP - General Family Medicine 05/03/18 documented as of this encounter Additional Source Comments The information contained in this document represents components of the legal health record. It is not the complete legal health record.[facility]
--- OUTSIDE RECORDS SUMMARY | 2025-06-06 09:17 | XMS_ITS | Encounter Summary ---
Author Organization [facility] Address [address] [facility] [address] [place] [address] Phone Care Team Providers Care Yarding Engineer Name Role Phone Ray Bedolla MD Primary Care Provider + Encounter Details Date Type Department Care Team (Late st Contact Info) Description 05/20/2022 Procedure Pass [facility], Ct Scan - [address] [address] Social History Tobacco Use Types Packs/Day Years [...] on filedocumented in this encounter Care Teams Yarding Engineer Relationship Specialty Start Date End Date Ray Bedolla MD [address] [place] [address] PCP - General Family Medicine 05/03/18 documented as of this encounter Additional Source Comments The information contained in this document represents components of the legal health record. It is not the complete legal health record.[facility]
--- OUTSIDE RECORDS SUMMARY | 2025-06-06 09:18 | XMS_ITS | Encounter Summary ---
Author Organization [facility] Address [address] [place] [address] Phone Care Team Providers Care Mft Name Role Phone Ray Bedolla MD Primary Care Provider + Encounter Details Date Type Department Care Team (Late st Contact Info) Description 05/19/2022 Procedure Pass [facility] Endoscopy Admitting Dept Virtual Department [address] [place] [address] Social History Tobacco Use Types Packs/Day Years [...] on filedocumented in this encounter Care Teams Mft Relationship Specialty Start Date End Date Ray Bedolla MD [address] [place] [address] PCP - General Family Medicine 05/03/18 documented as of this encounter Additional Source Comments The information contained in this document represents components of the legal health record. It is not the complete legal health record.[facility]
--- OUTSIDE RECORDS SUMMARY | 2025-06-06 09:18 | XMS_ITS | Encounter Summary ---
Author Organization [facility] Address [address] [place] [address] Phone Care Team Providers Care Optical Goods Drilling Machine Operator Name Role Phone Ray Bedolla MD Primary Care Provider + Reason for Referral * MRI/CAT Scan - Closed Specialty Diagnoses / Procedures Referred By Contac t Referred To Contact Radiology Diagnoses Adenocarcinoma, gastric cardia Procedures CT Chest CHG DIAGNOSTIC COMPUTED TOMOGRAPHY THORAX W/CONTRAST Rakan Forbes MD Phone: tel: fax: mailto:[email or web address] Referral ID Status Reason Start Date Expiration Date Visits Re quested Visits Authorized [id number] Closed 05/20/2022 07/19/2022 1 1 * MRI/CAT Scan - Closed Specialty Diagnoses / Procedures Referred By Contac t Referred To Contact Radiology Diagnoses Adenocarcinoma, gastric cardia Procedures CT Abdomen Only (No Pelvis) CHG CT SCAN OF ABDOMEN CONTRAST Rakan Forbes MD Phone: tel: fax: mailto:[email or web address] Referral ID Status Reason Start Date Expiration Date Visits Re quested Visits Authorized [id number] Closed 05/20/2022 07/19/2022 1 1 Encounter Details Date Type Department Care Team (Latest Contact Info) Description 05/20/2022 Transcribe Orders [facility] Department [address] [place] [address] Rakan Forbes MD [address] [place] [address] [email or web address] Adenocarcinoma, gastric cardia (Primary Dx) Social [...] small to characterize. us Rakan Forbes MD [facility] CT CHEST Final [...] cardia documented in this encounter Care Teams Optical Goods Drilling Machine Operator Relationship Specialty Start Date End Date Ray Bedolla MD [address] [place] [address] PCP - General Family Medicine 05/03/18 documented as of this encounter Additional Source Comments The information contained in this document represents components of the legal health record. It is not the complete legal health record.[facility]
--- OUTSIDE RECORDS SUMMARY | 2025-06-06 09:18 | XMS_ITS | Encounter Summary ---
Author Organization [facility] Address [address] [place] [address] Phone Care Team Providers Care Airfield Manager Name Role Phone Ray Bedolla MD Primary Care Provider + Encounter Details Date Type Department Care Team (Latest Contact Info) Description 05/16/2022 Transcribe Orders Virtual Department [address] [place] [address] Tammy Madrigal PA-C [address] [place] [address] [email or web address] Elevated LFTs (Primary Dx) Social History Tobacco [...] chemistry documented in this encounter Care Teams Airfield Manager Relationship Specialty Start Date End Date Ray Bedolla MD [address] [place] [address] PCP - General Family Medicine 05/03/18 documented as of this encounter Additional Source Comments The information contained in this document represents components of the legal health record. It is not the complete legal health record.[facility]
--- OUTSIDE RECORDS SUMMARY | 2025-06-06 09:18 | XMS_ITS | Clinical Summary ---
Author Organization [facility], Address [address] [place] [address] Phone Care Team Providers Care Clinical Science Liaison Name Role Phone Ray Bedolla MD Primary Care Provider [phone] Allergies No known active allergies Medications zolpidem [...] patient's age to complete this topic Insurance [facility] Care Teams Clinical Science Liaison Relationship Specialty Start Date End Date Ray Bedolla MD [address] [place] [phone] PCP - General Family Medicine 06/10/22
== END 2025-06-05 08:46 | disposition home or self-care (01) ==
LOC: HO.HOSX 08:45
DX: S52.502D Unspecified fracture of the lower end of left radius, subsequent encounter for closed fracture with routine healing (principal); X58.XXXD Exposure to other specified factors, subsequent encounter; Y99.0 Civilian activity done for income or pay
CPT/HCPCS: 73110; 99212

== ENCOUNTER 2025-06-05 13:27 | Outpatient (AMB) | payer OTHER, SELFPAY ==
--- NOTE | 2025-06-05 13:55 | A.OFFVIS_ITS ---
Vital Signs 06/05/25 13:56 Height 6 ft Weight 150 lb BMI 20.3 Intake Visit Reasons: OV-LT Distal Radius Fx, DOI 04/05/25 Intake Note: Mustapha is a 70 year old right hand dominant male who presents today for follow up status post Left Distal Radius Fracture from a work-related injury, DOI: 04/05/25. He was last seen on 05/09/25 where he was given a Velcro wrist brace to be worn with daytime activities, removing it to worn on ROM. He was also referred to Occupational Therapy. He was given to note to remain out of work for 2 weeks, returning back with a 2 lb weight limit. Today, patient reports he is doing well. He continues working with OT, now lifting 10 lbs. Patient is happy with his ROM improvement. He continues to be out of work. Allergies No Known Allergies Allergy (Verified 06/05/25 13:56) HPI HPI OV-LT Distal Radius Fx, DOI 04/05/25: Details: Mustapha is a 70 year old right hand dominant male who presents today for follow up status post Left Distal Radius Fracture from a work-related injury, DOI: 04/05/25. He was last seen on 05/09/25 where he was given a Velcro wrist brace to be worn with daytime activities, removing it to worn on ROM. He was also referred to Occupational Therapy. He was given to note to remain out of work for 2 weeks, returning back with a 2 lb weight limit. Today, patient reports he is doing well. He continues working with OT, now lifting 10 lbs. Patient is happy with his ROM improvement. He continues to be out of work. Patient does report some discomfort, but this is improved significantly since previous evaluation. 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 Neuro: Normal sensation of the tips of all digits of the left hand at this time Vascular: Cap refill brisk Pain: Very minimal tenderness to palpation of the left distal radius, only noted over the radial styloid Some discomfort with attempted range of motion of the left wrist ROM: Patient is able to make a closed fist and extend all digits of the left hand fully Patient is able to forward flex the left wrist to approximately 50 degrees and extend to 40 degrees Skin: No lacerations or abrasions. General: Ecchymosis and edema noted of both the dorsal and volar aspects of the left wrist over the distal radius have resolved Psych: Appears grossly normal Affect normal Attitude cooperative Results Reviewed Results Reviewed: X-rays obtained in the office today and independently reviewed by me, Inder Schwartz PA-C, demonstrate minimally displaced fracture of the left distal radius with evidence of interval bone healing. Assessment & Plan Assessment & Plan (1) Fracture of left distal radius: Code(s): S52.502A - Unspecified fracture of the lower end of left radius, initial encounter for closed fracture Category: Medical Plan 1. Left distal radius fracture Date of injury 04/05/2025 Patient appears to be recovering well from his injury Patient is educated about the typical recovery course At this time, patient is provided with a Velcro wrist splint to wear with daytime activities Continue OT and removing the Velcro wrist splint while at rest to work on range of motion As his job is unable to accommodate a 2 lb weight limit, the patient will be held out of work until follow-up Patient understands this and is amenable to this plan Follow-up in 4 weeks with repeat x-rays for reassessment, sooner with any acute concerns Orders: Orders XR wrist LT min 3V Today M25.532 - Pain in left wrist Coding Level of Care Code Global (90324) Diagnoses Fracture of left distal radius S52.502A
[2025-06-05 13:56] VITALS: BMI 20.3
== END 2025-06-05 14:20 | disposition home or self-care (01) ==
LOC: HO.HOS 13:28
DX: S52.502A Unspecified fracture of the lower end of left radius, initial encounter for closed fracture (principal)
CPT/HCPCS: 99024

== ENCOUNTER → 2025-06-05 13:47 | Outpatient (BNV) | payer OTHER, SELFPAY | PROVIDERS: Visit Provider Radiology Diagnostic Radiology | DX: S52.591D Other fractures of lower end of right radius, subsequent encounter for closed fracture with routine healing (principal) | CPT/HCPCS: 73110 ==

== ENCOUNTER 2025-06-19 09:00 | Outpatient (RCR) | payer OTHER, SELFPAY ==
--- NOTE | 2025-06-19 11:42 | MHC.OT.DC ---
[facility] Office [address] [phone] F: [phone] F: [phone] Occupational Therapy Discharge Note Patient Name: Mustapha Segura Provider: Inder Schwartz PA-C Diagnosis: L Distal Radius fx Date of Surgery: Date of Evaluation: 05/16/25 Date of Discharge: 06/19/25 Treatments to Date: 8 Cancellations to Date: No Shows to Date: Discharge Status: Achieved Goals Improved Function Independent with HEP Recommend MD Follow-up Discharge Summary: Mustapha in now about 10.5 weeks s/p L DRF and is doing very well. He has progressed strength and range to WFL and has no functional limitations. He has ortho follow-up 07/05 and we have discharged from OT services. During two sessions, he has had episodes of hypotension w/ one LOC and second episode today w/ BP 56/30 and diaphoretic w/ vomiting. He was brought down to the ED for further medical assessment and management and his PCP has been notified. Electronically Signed By: GABINO Crandall/Shirin CHT Reviewed/agree with student documentation: Therapist: Please Sign and return to therapist, thank you for your referral.
== END 2025-06-19 11:43 | disposition home or self-care (01) ==
LOC: HO.OT 09:00
PROVIDERS: PCP Family Medicine
DX: S52.502D Unspecified fracture of the lower end of left radius, subsequent encounter for closed fracture with routine healing (principal)
CPT/HCPCS: 97110; 97140; 97166

== ENCOUNTER 2025-06-19 09:24 | Emergency (ER) | payer OTHER, SELFPAY ==
[2025-06-19] VITALS (7 sets, daily range): BP systolic 86–141; BP diastolic 50–76; PULSE 42–51; RESP 14–20; TEMP -17.7–36.4; O2SAT 96–99; BMI 28.3
--- NOTE | 2025-06-19 09:31 | ECG_ITS ---
Test Reason : syncope Blood Pressure : */* mmHG Vent. Rate : 51 BPM Atrial Rate : 51 BPM P-R Int : 216 ms QRS Dur : 158 ms QT Int : 494 ms P-R-T Axes : * 40 28 degrees QTcB Int : 455 ms Sinus bradycardia with 1st degree A-V block with Premature atrial complexes Right bundle branch block Possible Inferior infarct (cited on or before 01-Jun-2025) Abnormal ECG When compared with ECG of 01-Jun-2025 14:06, Sinus rhythm has replaced Ectopic atrial rhythm T wave inversion more evident in Anterior leads Nonspecific T wave abnormality, improved in Lateral leads Referred By: Generic ED Physician Electronically Signed By: BRENDA PASTRANA MD
--- NOTE | 2025-06-19 10:17 | ED_ITS ---
[facility] - General Adult General Chief complaint: Syncope Stated complaint: Syncopal episode from outpatient Time Seen by Provider: 06/19/25 10:10 Source: patient Mode of arrival: ambulatory Limitations: no limitations History of Present Illness ED Provider: Dr. Almanza [facility] narrative: 70-year-old male presented hospital today for dizziness. Patient was in the Occupational therapy session when this occurred. He had near syncopal episode. No falls. No head trauma. Patient denies any chest pain or palpitation. Denies any symptoms. He stated he just felt dizzy. 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 He is still take blood pressure medication. He is unsure what a blood pressure medication he is taking. Related Data Home Medications ?Medication ?Instructions ?Recorded ?Confirmed CPAP 04/11/25 albuterol sulfate 90 mcg/actuation 2 puff inhalation Q 4-6H PRN 04/11/25 06/01/25 aerosol inhaler Shortness Of Breath Or Wheez ing citalopram 10 mg tablet 10 mg PO DAILY 04/11/2505/14 famotidine 20 mg tablet 20 mg PO BID 04/11/25 fluticasone propionate 50 2 spray intranasal DAILY PRN Nasal 04/11/25 06/01/25 mcg/actuation nasal Congestion spray,suspension levothyroxine 75 mcg tablet 75 mcg PO DAILY@0600 04/1106/01/25 prednisone 5 mg tablet 5 mg PO DAILY 04/11/2506/01 zafirlukast 20 mg tablet 20 mg PO BID 04/11/25 multivitamin 1 tab PO DAILY 06/01/2505/14 zolpidem 10 mg tablet 10 mg PO BEDTIME PRN Sleep 1 08/01/24 06/01/25 Allergies Allergy/AdvReac Type Severity Reaction Status Date / Time No Known Allergies Allergy Verified 06/19/25 09:46 Review of Systems 2 Review of Systems: Pertinent review of systems as mentioned in [facility]. All other system otherwise negative. [facility] Past Medical History [facility] Narrative: Medical history as mentioned in HPI Medical History History of esophageal cancer Surgical History History of knee surgery Social History Social History Household Members: Spouse Housing: House Do you presently have visiting nurse or other home services: No Alcohol intake: current Alcohol intake frequency: holidays/special occasions only Patient Tobacco Use Status: Former Tobacco user Smoked in Last 30 Days: No Use of substances other than those prescribed or required for medical reasons: No Advance Directives: Yes Advance Directives on File: Yes Advance Directives Date on File: 06/01/25 service: No Current occupational status: employed 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, 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 Physical Exam ED Exam Exam: General: Pleasant, no distress, interacting appropriately Head: Normacephalic, atraumatic ENT: oral mucosa moist, neck supple, no tracheal deviation Cardiovascular: regular rate, regular rhythm, no murmurs, rubbing, gallops Respiratory: CTAB, no wheeze, rales, rhonchi Gastrointestinal: Soft, non distended, non tender, non guarding Neurological: Awake and alert, no facial droop noted Skin: Warm and dry Psychiatric: Appropriate mood and thoughts Vital Signs: Vital Signs - 24 hr 06/19/25 09:37 06/19/25 09:43 06/19/25 11:21 Temperature 97.4 F 97.4 F Pulse Rate 48 L 50 50 Respiratory Rate 16 14 16 Blood Pressure 99/58 L 94/60 86/50 L Pulse Oximetry 99 99 96 Oxygen Delivery Method Room Air Room Air Room Air 06/19/25 11:43 Temperature 97.6 F Pulse Rate 42 L Respiratory Rate 14 Blood Pressure 141/76 H Pulse Oximetry 96 Oxygen Delivery Method Room Air BMI result Body Mass Index 28.3 Medications Administered Discontinued Medications Generic Name Dose Route Start Last Admin Trade Name Freq PRN Reason Stop Dose Admin Lactated Ringer's 1,000 mls @ 999 mls/hr 06/19/25 10:30 06/19/25 11:17 Lr IV 06/19/25 11:30 999 mls/hr .Q1H1M CARLOS Administration Medical Decision Making Medical Decision Making [facility] Narrative: This is a 70-year-old male history of bradycardia hypotension presented hospital today for dizziness. Patient is noted to be hypotensive here. Blood pressure 94/60. We will plan to give patient a L IV fluid. Basic lab work will be obtained for the patient as well. Patient does not appear to be toxic on my exam. I have low suspicion for infectious cause of his hypotension. No signs of fever no sign of tachycardia. Screening EKG will be obtained. EKG shows right bundle branch block. Similar to his prior EKG in the past. He is bradycardic rate in his 50s. Patient's CBC shows slight anemia chemistry did show signs of dehydration, after a L IV fluid patient's blood pressure has improved. Second blood pressure is 109/64. Patient is able to ambulate without any issues. Patient will be discharged. Differential Diagnosis Differential Diagnoses: The differential diagnosis associated with the presentation includes Orthostatic hypotension, dizziness, hypotension, hypovolemia Lab Data MDM Lab Attestation statement: I reviewed the patient's lab results. 06/19/25 11:15 06/19/25 11:15 Labs: Lab Results 06/19/25 Range/Units 11:15 WBC 9.1 (4.8-10.8) X10*3/uL RBC 4.58 L (4.60-5.80) X10*6/uL Hgb 11.4 L (14.0-18.0) g/dl Hct 36.2 L (42.0-52.0) % MCV 79.0 L (80.0-98.0) fL MCH 24.9 L (27.0-33.0) pg MCHC 31.5 (31.0-36.0) g/dl RDW 18.1 H (11.0-16.0) % Plt Count 195 (160-400) X10*3/uL MPV 11.0 (9.4-12.4) fL Immature Gran % (Auto) 0.6 H (0.0-0.4) % Neut % (Auto) 79.0 H (45-73) % Lymph % (Auto) 5.4 L (20-40) % Bourbon % (Auto) 9.1 (2-11) % Eos % (Auto) 5.3 H (0-4) % Baso % (Auto) 0.6 (0-2) % Lymph # (Auto) 0.5 L (1.2-4.9) X10*3/uL Bourbon # (Auto) 0.8 (0.1-1.2) X10*3/uL Eos # (Auto) 0.5 H (0.0-0.4) X10*3/uL Baso # (Auto) 0.1 (0.0-0.2) X10*3/uL Abs Immat Gran (auto) 0.05 H (0.00-0.03) X10*3/uL Absolute Neuts (auto) 7.2 (2.0-8.3) x10*3/uL Absolute Nucleated RBC 0.000 (0.0-0.012) X10*3/uL Nucleated RBC % (auto) 0.0 (0.0-0.2) /100WBC Sodium 138 (135-145) mmol/L Potassium 4.2 (3.3-5.1) mmol/L Chloride 107 (96-108) mmol/L Carbon Dioxide 26 (22-29) mmol/L Anion Gap 9 L (12-20) BUN 23 H (9-16) mg/dL Creatinine 0.74 (0.5-1.4) mg/dL Estim Creat Clear Calc 112.4 Estimated GFR > 60 Random Glucose 99 (60-115) mg/dL Calcium 9.4 (8.4-10.2) mg/dL Magnesium 2.1 (1.6-2.6) mg/dL Total Bilirubin 0.2 (0.0-1.0) mg/dL AST 26 (5-37) U/L ALT 25 (0-40) U/L Alkaline Phosphatase 94 (39-117) U/L Troponin I High Sens 4.8 D (<3.5-35.0) ng/L Total Protein 6.7 (6.5-8.0) g/dL Albumin 4.2 (3.5-5.0) g/dL TSH 0.13 L (0.32-4.0) uIU/mL Independent Interpretation I performed an independent interpretation of an: EKG Discharge Plan Discharge Clinical Impression: Dizziness Patient Disposition: Home, Self-Care Instructions: Dizziness (ED) Additional Instructions: Follow up with your primary doctor for your low blood pressure. If you are on any blood pressure medicine. I would recommend stop taking them. Stay well hydrated. Drink at least 64 ounces of fluid daily. Prescriptions: No Action zolpidem 10 mg tablet 10 mg PO BEDTIME PRN (Reason: Sleep) multivitamin Tablet 1 tab PO DAILY citalopram 10 mg tablet 10 mg PO DAILY prednisone 5 mg tablet 5 mg PO DAILY levothyroxine 75 mcg tablet 75 mcg PO DAILY@0600 famotidine 20 mg tablet 20 mg PO BID zafirlukast 20 mg tablet 20 mg PO BID albuterol sulfate 90 mcg/actuation HFA aerosol inhaler 2 puff inhalation Q4-6H PRN (Reason: Shortness Of Breath Or Wheezing) fluticasone propionate 50 mcg/actuation spray,suspension 2 spray intranasal DAILY PRN (Reason: Nasal Congestion) (DME) CPAP Device See Rx Instructions .ROUTE Rx Instructions: As directed Referrals: [facility] [Provider Group] Print Language: Citizen Of [place]
[2025-06-19] MEDS: Lactated Ringers 1,000 ML 999 ML IV (11:17)
[2025-06-19 11:22] LABS: MANUAL DIFF FLAG NO
[2025-06-19 11:26] LABS: Hematocrit 36.2 % (42.0-52.0); Hemoglobin 11.4 g/dl (14.0-18.0); Imm Gran Abs Auto 0.05 X10*3/uL (0.00-0.03); Imm Gran Pct Auto 0.6 % (0.0-0.4); Lymphocytes Absolute Auto 0.5 X10*3/uL (1.2-4.9); Mean Corpuscular HGB Conc 31.5 g/dl (31.0-36.0); Mean Corpuscular Hemoglobin 24.9 pg (27.0-33.0); Mean Corpuscular Volume 79.0 fL (80.0-98.0); NRBC Abs Auto 0.000 X10*3/uL (0.0-0.012); NRBC Pct Auto 0.0 /100WBC (0.0-0.2); Platelet Count 195 X10*3/uL (160-400); Red Blood Count 4.58 X10*6/uL (4.60-5.80); White Blood Count 9.1 X10*3/uL (4.8-10.8)
[2025-06-19 11:47] LABS: Alanine Aminotransferase 25 U/L (0-40); Albumin Level 4.2 g/dL (3.5-5.0); Alkaline Phosphatase 94 U/L (39-117); Anion Gap 9 (12-20); Aspartate Amino Transferase 26 U/L (5-37); Blood Urea Nitrogen 23 mg/dL (9-16); Calcium 9.4 mg/dL (8.4-10.2); Carbon Dioxide 26 mmol/L (22-29); Chloride 107 mmol/L (96-108); Creatinine Clr Calc Pharmacy 112.4; Estimated Glomerular Filt Rate > 60; Magnesium 2.1 mg/dL (1.6-2.6); Potassium 4.2 mmol/L (3.3-5.1); Sodium 138 mmol/L (135-145); Total Protein 6.7 g/dL (6.5-8.0)
[2025-06-19 11:49] LABS: Troponin-I High Sensitivity 4.8 ng/L (<3.5-35.0)
--- NOTE | 2025-06-19 12:03 | PC.NURSE ---
Accessed pts port on right side of chest with MD approval, fluids infusing. Pt feeling better overall OK to eat per MD
[2025-06-19 13:31] LABS: Free T4 (Free Thyroxine) 0.77 ng/dL (0.71-1.85)
[2025-06-19] MEDS: Heparin Sodium,Porcine Flush 50 UNITS, 0.9 % Sodium Chloride Flush 5 ML IVFLUSH (13:38)
== END 2025-06-19 13:55 | disposition home or self-care (01) ==
PROVIDERS: Emergency Provider Student in an Organized Health Care Education/Training Program; PCP Family Medicine
DX: R42 Dizziness and giddiness (principal); I95.9 Hypotension, unspecified; R00.1 Bradycardia, unspecified; I45.10 Unspecified right bundle-branch block
CPT/HCPCS: 36415; 80053; 83735; 84439; 84443; 84484; 85025; 93005; 96360; 96361; 99284; 99285; J1642; J7120

== ENCOUNTER → 2025-06-19 09:31 | Outpatient (BNV) | payer OTHER, SELFPAY | PROVIDERS: Emergency Provider Student in an Organized Health Care Education/Training Program; PCP Family Medicine; Visit Provider Internal Medicine Cardiovascular Disease | DX: R00.1 Bradycardia, unspecified (principal); I44.0 Atrioventricular block, first degree; I49.1 Atrial premature depolarization; I45.10 Unspecified right bundle-branch block | CPT/HCPCS: 93010 ==

== ENCOUNTER 2025-07-05 09:50 | Outpatient (AMB) | payer OTHER, SELFPAY ==
--- OUTSIDE RECORDS SUMMARY | 2025-07-05 09:57 | XMS_ITS | Encounter Summary ---
Author Organization [facility] Address [address] [place] [address] Phone Care Team Providers Care Vp Strategy Name Role Phone Ray Bedolla MD Primary Care Provider + Reason for Referral * MRI/CAT Scan - Closed Specialty Diagnoses / Procedures Referred By Contac t Referred To Contact Radiology Diagnoses Adenocarcinoma, gastric cardia Procedures CT Chest CHG DIAGNOSTIC COMPUTED TOMOGRAPHY THORAX W/CONTRAST Rakan Forbes MD Phone: tel: fax: mailto:[email or web address] Referral ID Status Reason Start Date Expiration Date Visits Re quested Visits Authorized [id number] Closed 05/20/2022 07/19/2022 1 1 * MRI/CAT Scan - Closed Specialty Diagnoses / Procedures Referred By Contac t Referred To Contact Radiology Diagnoses Adenocarcinoma, gastric cardia Procedures CT Abdomen Only (No Pelvis) CHG CT SCAN OF ABDOMEN CONTRAST Rakan Forbes MD Phone: tel: fax: mailto:[email or web address] Referral ID Status Reason Start Date Expiration Date Visits Re quested Visits Authorized [id number] Closed 05/20/2022 07/19/2022 1 1 Encounter Details Date Type Department Care Team (Latest Contact Info) Description 05/20/2022 Transcribe Orders [facility] Department [address] [place] [address] Rakan Forbes MD [address] [place] [address] [email or web address] Adenocarcinoma, gastric cardia (Primary Dx) Social History [...] small to characterize. us Rakan Forbes MD [facility] [place] CHEST Final Result * CT ABDOMEN [...] cardia documented in this encounter Care Teams Vp Strategy Relationship Specialty Start Date End Date Ray Bedolla MD [address] [place] [address] PCP - General Family Medicine 05/03/18 documented as of this encounter Additional Source Comments The information contained in this document represents components of the legal health record. It is not the complete legal health record.[facility]
--- OUTSIDE RECORDS SUMMARY | 2025-07-05 09:57 | XMS_ITS | Data Portability ---
Author Organization [place] - [facility], [facility] Address [address] [address] Care Team Providers Care Scrap Picker Name Role Phone AMATY SARAH Primary Care [...] contr ast No observ ation record ed. [email or web address] Not Available 07/13 14:04:19 Result Notes None recorded. 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 Procedures Surgical History Date Name Laterality Status Provider Name and Address Organization Details Recorded Time 08/19/2024 NasalEndos copy_DP completed ALEJANDRA CHASE MD [address] [facility] [address], [place], [address], [facility] 08/19/2024 14:15:20 Imaging Results None recorded. [...] Updated DateTime 08/19/2024 182.88 cm 29 kg/m2 87025.77 g Shila Vargas [place] - [facility] 08/19/2024 14:04:04 Social History None recorded. Functional Status None recorded. Mental Status None recorded. Family History Nothing Reported. Medical History No medical history recorded. Past Encounters Encounter ID Performer Location Encounter Start Date Encounter Closed Date Diagnosis/Indication Diagnosis SNOMED-CT Code Diagnosis ICD10 Code Diagnosis IMO Codes Diagnosis Note [id number] ALEJANDRA CHASE MD [facility] [address] [address] 08/19/2024 13:41:14 08/19/2024 16:29:44 Neoplasm of pituitary gland 603347496 D49.[address] Payne. He [...] Rob Member ID Guarantor Name 08/19/2024 1 [facility] [id number] 3 Mustapha Segura [id number] Mustapha Segura Notes Date Note Type Note Provider Name and Address Organization Details Recorded Time text/html ROS as noted in the HPI pituitary lesionreferral from Dr Looney thyroid replacementawaiting referral to Dr Max for eye examhx of esophageal ca [address] Christianson 07/02/2024 [facility] macroadenoma. 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 No extension into cavernous sinus. 27 x 21 x 23 mm. Progression since 2021 ALEJANDRA CHASE MD [address] [address], [place], [address], [place] - [facility] 08/19/2024 14:24:11
--- OUTSIDE RECORDS SUMMARY | 2025-07-05 09:57 | XMS_ITS | Patient Health Record ---
Author Organization [facility] Address [address] [place] [address] Care Team Providers Care Toddler Guide Name Role Phone David REYES Ting Primary Care Provider Julio Barrera Unavailable [phone] Reason For Referral No Information Medications Medication SIG (Take, Route, Frequency, Duration) Notes Start Date End Date Status Triamterene-HCTZ 37.5-25 MG Oral; Duration: 90 Active Metoprolol Succinate ER 100 MG Oral; Duration: 90 Active Night Splint AFO - L1930 as directed 05/16/2016 Active Fluarix Quadrivalent 0.5 ML Intramuscular Not-Taking Zostavax 60117 UNT/0.65ML Subcutaneous; Duration: 1 Not-Taking Social History Tobacco use other than smoking: Question Answer Notes Are you an other tobacco user? No Problems Problem Type SNOMED Code ICD Code Onset Dates Problem Status W/U Status Risk Notes Problem Plantar fascial fibromatosis (02317584) Plantar fascial fibromatosis (M72.2) Active confirmed Encounters Encounter Location Date Provider Diagnosis [facility] [address] [place] [address] 10/27/2024 Julio Blandon [address] [address] 06/22/2025 Julio Blandon Plan Of Treatment Pending Test Test Name Order Date X ray : Foot, left 3V 06/09/2017 [id number] TENDON SHEATH/LIGAMENT 1 07/23/2015 [id number] TENDON SHEATH/LIGAMENT 1 07/27/2015 Insurance Providers Payer Name Payer Address Payer Phone Subscriber Number Group Number Insured Name Patient Relationship to Insured Coverage Start Date Coverage End Date [facility] [address] [facility] [place] [address] [id number] Mustapha Segura Self - patient is the insured Medical (General) History Medical History History ICD Code Arthritis High blood pressure Chicken pox Surgical History Surgery Date(Month/Year) total left knee replacement 2009 total right knee replacement 2014
--- OUTSIDE RECORDS SUMMARY | 2025-07-05 09:57 | XMS_ITS | Encounter Summary ---
Author Organization [facility] Address [address] [facility] [address] [place] [address] Phone Care Team Providers Care Supervisor Pleating Name Role Phone Ray Bedolla MD Primary Care Provider + Encounter Details Date Type Department Care Team (Late st Contact Info) Description 05/20/2022 Procedure Pass [facility], Ct Scan - [address] [address] Social History Tobacco Use Types Packs/Day Years [...] on filedocumented in this encounter Care Teams Supervisor Pleating Relationship Specialty Start Date End Date Ray Bedolla MD [address] [place] [address] PCP - General Family Medicine 05/03/18 documented as of this encounter Additional Source Comments The information contained in this document represents components of the legal health record. It is not the complete legal health record.[facility]
--- OUTSIDE RECORDS SUMMARY | 2025-07-05 09:57 | XMS_ITS | Clinical Summary ---
Author Organization [facility] Address [address] [place] [address] Phone Care Team Providers Care Retail Account Executive Name Role Phone Ray Bedolla MD Primary [...] 67 Admit Type: Outpatient Gender: Male Room: [place] [address] Referring MD: Ray Bedolla Exam Type: Colonoscopy [...] monitored continuously. The Olympus adult variable colonoscope [id number] #2 was introduced through the anus and [...] 12:24 PM Procedure Code(s): --- Professional --- 96831, Colonoscopy, flexible; diagnostic, including collection of specimen(s) by brushing or washing, when performed (separateprocedure) --- Technical --- 46879, Colonoscopy, flexible; diagnostic, including collection of specimen(s) [...] Iron deficiency anemia, unspecified CPT copyright 2020 [employer]. All rights reserved. The codes documented in this report are preliminary and upon agricultural researcher reviewmay be revised to meet current compliance requirements. Procedure Date: 05/19/2022 12:24:00 PM [address] [place] [address] Ray Bedolla MD GI PROCEDURE ORDERABLES Final Result * (ABNORMAL) Comprehensive metabolic panel (05/09/2022 3:02 PM EDT) SODIUM 138 133 - 146 mmol/L [facility] POTASSIUM 3.9 3.3 - 5.1 mmol/L [facility] CHLORIDE 99 96 - 108 mmol/L [facility] CO2 24 21 - 35 mmol/L [facility] BUN 20(H) 6 - 19 mg/dL [facility] CREATININE 0.90 0.5 - 1.5 mg/dL [facility] GLUCOSE 143(H) 70 - 99 mg/dL [facility] ALBUMIN 4.8 3.9 - 4.8 g/dL [facility] TOTAL PROTEIN 7.3 6.5 - 8.0 g/dL [facility] CALCIUM 9.8 8.4 - 10.3 mg/dL [facility] ALKALINE PHOSPHATASE 94 39 - 117 U/L [facility] TOTAL BILIRUBIN 0.3 0.0 - 1.2 mg/dL [facility] AST 79(H) 0 - 37 U/L [facility] ALT 73(H) 0 - 40 U/L [facility] GLOBULIN 2.5 1 - 4.8 g/dL [facility] EGFR 94 >59 mL/min/1.7 3m2 [facility] Comment:Estimated glomerular filtration rate calculated using the CKD-EPI refit equation. ANION GAP 19 10 - 20 mmol/L [facility] Blood 05/09/2022 3:02 PM EDT 05/09/2022 3:08 PM EDT us Tammy Madrigal PA-C LAB BLOOD BKR ORDERABLES Final Result [address] [address] * TSH (05/09/2022 3:02 PM EDT) TSH 0.90 0.27 - 4.20 uIU/mL [facility] Blood 05/09/2022 3:02 PM EDT 05/09/2022 3:08 PM EDT Tammy Madrigal PA-C LAB BLOOD BKR ORDERABLES Final Result [address] [address] from Last 3 Months or Most Recently Relevant to Health Maintenance [place] [address] [place] [address] [place] [address] HMO [facility] [employer] [address] [place] [address] Care Teams Retail Account Executive Relationship Specialty Start Date End Date Ray Bedolla MD [address] [place] [address] [phone] PCP - General Family Medicine 05/03/18 Additional Source Comments The information contained in this document represents components of the legal health record. It is not the complete legal health record.[facility]
--- OUTSIDE RECORDS SUMMARY | 2025-07-05 09:57 | XMS_ITS | Encounter Summary ---
Author Organization [facility] Address [address] [place] [address] Phone Care Team Providers Care Director Automotive Name Role Phone Ray Bedolla MD Primary Care Provider + Encounter Details Date Type Department Care Team (Latest Contact Info) Description 05/16/2022 Transcribe Orders Virtual Department [address] [place] [address] Tammy Madrigal PA-C [address] [place] [address] [email or web address] Elevated LFTs (Primary Dx) Social History Tobacco [...] chemistry documented in this encounter Care Teams Director Automotive Relationship Specialty Start Date End Date Ray Bedolla MD [address] [place] [address] PCP - General Family Medicine 05/03/18 documented as of this encounter Additional Source Comments The information contained in this document represents components of the legal health record. It is not the complete legal health record.[facility]
--- OUTSIDE RECORDS SUMMARY | 2025-07-05 09:57 | XMS_ITS | Encounter Summary ---
Author Organization [facility] Address [address] [facility] [address] [place] [address] Phone Care Team Providers Care Maintenance Mechanic Millwright Name Role Phone Ray Bedolla MD Primary Care Provider + Encounter Details Date Type Department Care Team (Late st Contact Info) Description 05/20/2022 Procedure Pass [facility], Ct Scan - [address] [address] Social History Tobacco Use Types Packs/Day Years [...] on filedocumented in this encounter Care Teams Maintenance Mechanic Millwright Relationship Specialty Start Date End Date Ray Bedolla MD [address] [place] [address] PCP - General Family Medicine 05/03/18 documented as of this encounter Additional Source Comments The information contained in this document represents components of the legal health record. It is not the complete legal health record.[facility]
--- OUTSIDE RECORDS SUMMARY | 2025-07-05 09:57 | XMS_ITS | Clinical Summary ---
Author Organization [facility], Address [address] [place] [address] Phone Care Team Providers Care Grain Thresher Name Role Phone Ray Bedolla MD Primary Care Provider [phone]- [phone] Allergies No known active allergies Medications zolpidem [...] [facility] Care Teams Grain Thresher Relationship Specialty Start Date End Date Ray Bedolla MD [address] [place] [phone] PCP - General Family Medicine 06/10/22
--- OUTSIDE RECORDS SUMMARY | 2025-07-05 09:57 | XMS_ITS | Encounter Summary ---
Author Organization [facility] Address [address] [place] [address] Phone Care Team Providers Care Manufacturing Maintenance Manager Name Role Phone Ray Bedolla MD Primary Care Provider + Encounter Details Date Type Department Care Team (Late st Contact Info) Description 05/19/2022 Procedure Pass [facility]oscopy Admitting Dept Virtual Department [address] [place] [address] Social History Tobacco Use Types Packs/Day Years [...] on filedocumented in this encounter Care Teams Manufacturing Maintenance Manager Relationship Specialty Start Date End Date Ray Bedolla MD [address] [place] [address] PCP - General Family Medicine 05/03/18 documented as of this encounter Additional Source Comments The information contained in this document represents components of the legal health record. It is not the complete legal health record.[facility]
--- OUTSIDE RECORDS SUMMARY | 2025-07-05 09:57 | XMS_ITS | Encounter Summary ---
Author Organization [facility] Address [address] [place] [phone] Phone Care Team Providers Care Boilerhouse Mechanic Name Role Phone Ray Bedolla MD Primary Care Provider + Encounter Details Date Type Department Care Team (Late st Contact Info) Description 05/20/2018 Procedure Pass [facility] Endoscopy Admitting Dept Virtual Department [address] [place] [id number] Social History Tobacco Use Types Packs/Day Years [...] documented as of this encounter Care Teams Boilerhouse Mechanic Relationship Specialty Start Date End Date Ray Bedolla MD [address] [place] [id number] PCP - General Family Medicine 05/03/18 documented as of this encounter Additional Source Comments The information contained in this document represents components of the legal health record. It is not the complete legal health record.[facility]
--- NOTE | 2025-07-05 09:59 | A.OFFVIS_ITS ---
Intake Visit Reasons: OV-WC LT Distal Radius Fx, DOI 04/05/25 Intake Note: Mustapha is a 70 year old right hand dominant male who presents today for follow up status post Left Distal Radius Fracture from a work-related injury, DOI: 04/05/25. At his last visit he was advised to continue working with Occupational Therapy and to remain out of work as they are unable to accommodate his 2 lb weight limit. Patient reports he is doing great. He would like to discuss his work status today. Allergies No Known Allergies Allergy (Verified 07/05/25 10:07) HPI HPI OV-WC LT Distal Radius Fx, DOI 04/05/25: Details: Mustapha is a 70 year old right hand dominant male who presents today for follow up status post Left Distal Radius Fracture from a work-related injury, DOI: 04/05/25. At his last visit he was advised to continue working with Occupational Therapy and to remain out of work as they are unable to accommodate his 2 lb weight limit. Patient reports he is doing great. Patient states that occupational therapy has had him up to 45 lb of lifting. He would like to discuss his work status today. Patient reports he would like to return to work on Thursday. No other acute complaints or concerns at this time. 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 Neuro: Normal sensation of the tips of all digits of the left hand at this time Vascular: Cap refill brisk Pain: No tenderness to palpation of the left distal radius, only noted over the radial styloid No further discomfort with attempted range of motion of the left wrist ROM: Patient is able to make a closed fist and extend all digits of the left hand fully Patient is able to forward flex the left wrist to approximately 50 degrees and extend to 40 degrees Skin: No lacerations or abrasions. General: Ecchymosis and edema noted of both the dorsal and volar aspects of the left wrist over the distal radius have resolved Psych: Appears grossly normal Affect normal Attitude cooperative Assessment & Plan Assessment & Plan (1) Fracture of left distal radius: Code(s): S52.502A - Unspecified fracture of the lower end of left radius, initial encounter for closed fracture Category: Medical Plan 1. Left distal radius fracture Date of injury 04/05/2025 Patient appears to be recovering well from his injury Patient is educated about the typical recovery course Patient should put on Velcro wrist splint with high-risk daytime activities Continue with exercises provided by OT to work on range of motion of the left wrist Patient may return to work full duty at this time Patient understands this and is amenable to this plan Follow-up as needed with any acute concerns Coding Level of Care Code Est Pt Level 3 (75959) Diagnoses Fracture of left distal radius S52.502A
== END 2025-07-05 10:13 | disposition home or self-care (01) ==
LOC: HO.HOS 09:50
PROVIDERS: PCP Family Medicine
DX: S52.502A Unspecified fracture of the lower end of left radius, initial encounter for closed fracture (principal)
CPT/HCPCS: 99213

== ENCOUNTER → 2025-07-05 09:50 | Outpatient (BNVA) | payer OTHER, SELFPAY | PROVIDERS: PCP Family Medicine | DX: Z47.89 Encounter for other orthopedic aftercare (principal); S52.502D Unspecified fracture of the lower end of left radius, subsequent encounter for closed fracture with routine healing; X58.XXXD Exposure to other specified factors, subsequent encounter | CPT/HCPCS: 99212 ==